=== PATIENT | female | born 1995 | race Caucasian/White ===

== ENCOUNTER 2019-06-29 12:14 | Emergency (ER) | payer BC ==
[2019-06-29] MEDS ORDERED: Sodium Chloride 0.9% 1000 ML 1,000 ML IV STA (12:36)
[2019-06-29] MEDS ORDERED: DUONEB 0.5-3 MG/3 ml Neb IH ONE ×2 (12:36→12:50)
--- NOTE | 2019-06-29 12:43 | ERPHSYRPT ---
- History of Present Illness Time Seen by Provider: 06/29/19 12:27 Source: patient Patient Subjective Stated Complaint: I have had body aches, fever, chills, shortness of breath and dry cough since last night. I am also having diarrhea. Triage Nursing Assessment: Pt presents to ER via POV (drove self) for increased shortness of breath with excertion since last night. Pt lungs clear and equal throughout. Does have dry frequent cough. Pt skin pink, warm, and dry. Pt states has had fever on and off since last night. Abd soft and nontender, states has had diarrhea but denies nausea and vomiting. States pain is 4 / 10 scale. It states pain is in chest/throat from excess coughing. Pt is alert and oriented x 3. Came back in to Room 3 in wheelchair. Physician History: 24 years old female presented in the ER with chief complaint of 3 to 4 days history of worsening minimal productive cough and last night started to have low -grade fever with a T-max of 100.2 along with generalized body aches. Patient is also having increasing shortness of breath since yesterday which is worse with activity and better with resting. Complaining of soreness in the chest all over with heaviness. Patient has taken Tylenol and fever is improved. Denies any sick contact. Patient denies any abdominal pain but has loose stools for the last couple of days. No nausea or vomiting reported. Patient is hyperventilating during the interview and reports earlier she was having some tingling sensation and some carpopedal spasm which is improved now. Timing/Duration: yesterday, gradual onset, worse Activities at Onset: activity Severity of Dyspnea-Max: moderate Severity of Dyspnea-Current: moderate Possible Cause: no prior episodes Modifying Factors: Improves With: activity, coughing Associated Symptoms: weakness, chills, dizziness, lightheadedness, muscle spasms hands, productive cough, tingling hands Allergies/Adverse Reactions: No Known Drug Allergies Allergy (Verified 06/29/19 12:28) STATES WAS ALLERGIC TO THREE DIFFERENT TYPES OF HEADACHE MEDICATIONS BUT DOESN' T KNOW WHAT THEY WERE, SAID IT WAS A LONG TIME AGO. Hx Tetanus, Diphtheria Vaccination/Date Given: Yes Hx Influenza Vaccination/Date Given: Yes Hx Pneumococcal Vaccination/Date Given: No Travel Risk - International Travel Have you traveled outside of the country in past 3 weeks: No Have you or anyone close to you been diagnosed with or: Yes Do your reside in a community with a known COVID-19 case?: Yes If Yes where:: [facility] - Coronavirus Screening Has patient experienced Coronavirus symptoms: Yes Symptoms experienced: fever(equal or > 100.4 F), respiratory symptoms ( i.e.Cought,shortness of breath) - Review of Systems Constitutional: Fever, Chills, Fatigue, Malaise Eyes: No Symptoms Ears, Nose, & Throat: No Symptoms Respiratory: Cough, Dyspnea Cardiac: Chest Pain Abdominal/Gastrointestinal: Diarrhea Genitourinary Symptoms: No Symptoms Musculoskeletal: Myalgias Skin: No Symptoms Neurological: Dizziness Psychological: Anxiety Endocrine: No Symptoms Hematologic/Lymphatic: No Symptoms Immunological/Allergic: No Symptoms - Past Medical History Pertinent Past Medical History: No - Past Surgical History Past Surgical History: No - Social History Smoking Status: Current every day smoker Drug Use: none - Female History Hx Last Menstrual Period: 06/24/19 Hx Now: No - Nursing Vital Signs Nursing Vital Signs: Initial Vital Signs Pulse Rate 110 H 06/29/19 12:14 Respiratory Rate 22 06/29/19 12:14 O2 Sat by Pulse Oximetry 100 06/29/19 12:14 Pain Scale Pain Intensity 4 - Physical Exam General Appearance: no apparent distress Eye Exam: PERRL/EOMI, eyes nml inspection Ears, Nose, Throat Exam: hearing grossly normal, normal ENT inspection, pharyngeal erythema Neck Exam: normal inspection, non-tender, supple, full range of motion Respiratory Exam: normal breath sounds, lungs clear, No chest tenderness Cardiovascular/Chest Exam: normal heart sounds, regular rate/rhythm, murmur Abdominal/Gastrointestinal Exam: soft, normal bowel sounds, No tenderness, No distention Extremity Exam: non-tender Neurologic Exam: alert, oriented x 3, cooperative, other (Anxious) Skin Exam: normal color, warm SpO2 Interpretation: normal SpO2: 100 O2 Delivery: Room Air - Course Nursing assessment & vital signs reviewed: Yes EKG Interpreted by Me: RATE ([id number]), NORMAL AXIS, NORMAL INTERVALS, NORMAL QRS Ordered Tests: Active Orders 24 hr Category Date Time Status IV Insertion STAT Care 06/29/19 12:36 Active CHEST 1 VIEW (PORTABLE) Stat Exams 06/29/19 12:36 Completed CBC W DIFF Stat Lab 06/29/19 12:50 Completed CMP Stat Lab 06/29/19 12:50 Completed D-DIMER QUANTITATIVE Stat Lab 06/29/19 14:21 Completed TROPONIN Q3H Lab 06/29/19 12:50 Completed TROPONIN Q3H Lab 06/30/19 00:45 Ordered Respiratory Therapy Assessment ONCE RT 06/29/19 13:43 Completed Medication Summary Discontinued Medications Generic Name Dose Route Start Last Admin Trade Name Freq PRN Reason Stop Dose Admin Albuterol/Ipratropium 3 ml 06/29/19 12:36 06/29/19 12:55 Duoneb 0.5-3 Mg/3 Ml Neb IH 06/29/19 12:37 3 ml STAT ONE Administration Albuterol/Ipratropium Confirm 06/29/19 12:50 Duoneb 0.5-3 Mg/3 Ml Neb Administered 06/29/19 12:51 Dose 3 ml IH .STK-MED ONE Sodium Chloride 1,000 mls @ 999 mls/hr 06/29/19 12:36 06/29/19 15:04 Sodium Chloride 0.9% 1000 Ml IV 06/29/19 13:36 Infused .Q1H1M STA Infusion Sodium Chloride Confirm 06/29/19 12:56 Sodium Chloride 0.9% 1000 Ml Administered 06/29/19 12:57 Dose 1,000 mls @ ud .ROUTE .STK-MED ONE Lab/Rad Data: Laboratory Result Diagrams 06/29/19 12:50 06/29/19 12:50 Laboratory Results 06/29/19 06/29/19 06/29/19 Range/Units 14:21 13:00 12:50 WBC (4.0-10.5) K/mm3 RBC (4.1-5.4) M/mm3 Hgb (12.0-16.0) gm/dl Hct (35-47) % MCV (78-100) fl MCH (26-32) pg MCHC (32-36) g/dl RDW (11.5-14.0) % Plt Count (150-450) K/mm3 MPV (7.5-11.0) fl Gran % (36.0-66.0) % Eos # (Auto) (0-0.5) Absolute Lymphs (auto) (1.0-4.6) Absolute Monos (auto) (0.0-1.3) Lymphocytes % (24.0-44.0) % Monocytes % (0.0-12.0) % Eosinophils % (0.00-5.0) % Basophils % (0.0-0.4) % Absolute Granulocytes (1.4-6.9) Basophils # (0-0.4) D-Dimer < 215 L (215-500) ng/mL Sodium (137-145) mmol/L Potassium (3.5-5.1) mmol/L Chloride (98-107) mmol/L Carbon Dioxide (22-30) mmol/L Anion Gap (5-15) MEQ/L BUN (7-17) mg/dL Creatinine (0.52-1.04) mg/dL Estimated GFR ML/MIN Glucose (74-106) mg/dL Calcium (8.4-10.2) mg/dL Total Bilirubin (0.2-1.3) mg/dL AST (14-36) U/L ALT (0-35) U/L Alkaline Phosphatase (38-126) U/L Troponin I < 0.012 (0.000-0.034) ng/mL Serum Total Protein (6.3-8.2) g/dL Albumin (3.5-5.0) g/dL Influenza Type A Ag NEGATIVE (NEGATIVE) Influenza Type B Ag NEGATIVE (NEGATIVE) RSV (PCR) NEGATIVE (Negative) 06/29/19 06/29/19 Range/Units 12:50 12:50 WBC 6.9 (4.0-10.5) K/mm3 RBC 5.49 H (4.1-5.4) M/mm3 Hgb 14.6 (12.0-16.0) gm/dl Hct 44.1 (35-47) % MCV 80.3 (78-100) fl MCH 26.6 (26-32) pg MCHC 33.1 (32-36) g/dl RDW 13.1 (11.5-14.0) % Plt Count 296 (150-450) K/mm3 MPV 8.9 (7.5-11.0) fl Gran % 69.0 H (36.0-66.0) % Eos # (Auto) 0.01 (0-0.5) Absolute Lymphs (auto) 1.73 (1.0-4.6) Absolute Monos (auto) 0.38 (0.0-1.3) Lymphocytes % 25.1 (24.0-44.0) % Monocytes % 5.5 (0.0-12.0) % Eosinophils % 0.1 (0.00-5.0) % Basophils % 0.3 (0.0-0.4) % Absolute Granulocytes 4.76 (1.4-6.9) Basophils # 0.02 (0-0.4) D-Dimer (215-500) ng/mL Sodium 142 (137-145) mmol/L Potassium 3.3 L (3.5-5.1) mmol/L Chloride 105 (98-107) mmol/L Carbon Dioxide 23 (22-30) mmol/L Anion Gap 17.1 H (5-15) MEQ/L BUN 11 (7-17) mg/dL Creatinine 0.57 (0.52-1.04) mg/dL Estimated GFR > 60.0 ML/MIN Glucose 99 (74-106) mg/dL Calcium 9.5 (8.4-10.2) mg/dL Total Bilirubin 1.00 (0.2-1.3) mg/dL AST 24 (14-36) U/L ALT 19 (0-35) U/L Alkaline Phosphatase 75 (38-126) U/L Troponin I (0.000-0.034) ng/mL Serum Total Protein 8.0 (6.3-8.2) g/dL Albumin 4.7 (3.5-5.0) g/dL Influenza Type A Ag (NEGATIVE) Influenza Type B Ag (NEGATIVE) RSV (PCR) (Negative) - Progress Progress: improved, re-examined Air Movement: good Progress Note: 06/29/19 15:42 Patient is improved with fluid and breathing treatment. Broad work-up was done including d-dimer which are negative. Part of her symptoms are secondary to her anxiety as well when she starts hyperventilating. Patient is counseled thoroughly. Patient is having some flulike/viral syndrome symptoms, recommended supportive care. COVID testing would be done outpatient. Recommended social distancing until the results come back. Discussed signs symptoms of worsening needing return to ER which he seems understanding. Stable for discharge. Blood Culture(s) Obtained: No Antibiotics given: No Counseled pt/family regarding: lab results, diagnosis, need for follow-up, rad results, smoking cessation - Departure Departure Disposition: Home Clinical Impression: Viral syndrome Condition: Stable Critical Care Time: No Referrals: DOCTOR,NO FAMILY [Primary Care Provider] - RIOS FITCH MD [ACTIVE STAFF] - Follow Up with PCP/3 days Instructions: Viral Syndrome (DC) Additional Instructions: Plenty of fluids. Take Tylenol as needed. Follow-up with primary care for reevaluation. Follow social distance practices. Return to ER for any worsening. Prescriptions: Albuterol 8 gm Mdi Hfa [Ventolin Hfa MDI] 8 gm IH Q4H #1 [email or web address]
[2019-06-29] MEDS ORDERED: Sodium Chloride 0.9% 1000 ML 1,000 ML ONE (12:56)
[2019-06-29 13:13] LABS: Absolute Neutrophil Ct (ANC) 4.76 (1.4-6.9); BASOPHIL % 0.3 % (0.0-0.4); Basophil (Absolute #) 0.02 (0-0.4); Eosinophil % 0.1 % (0.00-5.0); Eosinophil (Absolute #) 0.01 (0-0.5); Hematocrit 44.1 % (35-47); Hemoglobin 14.6 gm/dl (12.0-16.0); Lymphocyte (Absolute #) 1.73 (1.0-4.6); Lymphocytes % 25.1 % (24.0-44.0); Mean Cell Volume 80.3 fl (78-100); Mean Corpuscular Hemoglobin 26.6 pg (26-32); Mean Corpuscular Hgb Concent. 33.1 g/dl (32-36); Mean Platelet Volume 8.9 fl (7.5-11.0); Monocyte (Absolute #) 0.38 (0.0-1.3); Monocytes % 5.5 % (0.0-12.0); Platelet Count 296 K/mm3 (150-450); Red Blood Count 5.49 M/mm3 (4.1-5.4); Red Cell Distribution Width 13.1 % (11.5-14.0); White Blood Count 6.9 K/mm3 (4.0-10.5)
--- NOTE | 2019-06-29 13:16 | XRAY ---
Indication: Cough and congestion. Comparison: None Portable chest demonstrates normal heart, lungs, and bony thorax.
[2019-06-29 13:26] LABS: ALBUMIN 4.7 g/dL (3.5-5.0); ALKALINE PHOSPHATASE 75 U/L (38-126); ANION GAP 17.1 MEQ/L (5-15); BLOOD UREA NITROGEN 11 mg/dL (7-17); CHLORIDE 105 mmol/L (98-107); Calcium 9.5 mg/dL (8.4-10.2); Carbon Dioxide 23 mmol/L (22-30); Creatinine 1 0.57 mg/dL (0.52-1.04); Glucose 99 mg/dL (74-106); Potassium 3.3 mmol/L (3.5-5.1); SGOT/AST 24 U/L (14-36); SGPT/ALT 19 U/L (0-35); SODIUM 142 mmol/L (137-145)
[2019-06-29 13:44] LABS: INFLUENZA A NEGATIVE (NEGATIVE); INFLUENZA B NEGATIVE (NEGATIVE); RESPIRATORY SYNCTIAL VIRUS NEGATIVE (Negative)
[2019-06-29 16:16] VITALS: BP 108/72; PULSE 75; O2SAT 98
== END 2019-06-29 16:24 | disposition home or self-care (01) ==
LOC: ED 12:14
DX: B34.9 Viral infection, unspecified (principal); R42 Dizziness and giddiness; F41.9 Anxiety disorder, unspecified; R50.9 Fever, unspecified; Z72.0 Tobacco use
CPT/HCPCS: 36415; 71045; 80053; 84484; 85025; 85379; 87631; 94640; 96360; 99284; U0003; A9270-GY

== ENCOUNTER 2020-05-23 20:59 | Emergency (ER) | payer BC ==
[2020-05-23] MEDS ORDERED: Rhogam Plus 300 MCG IM ONE (21:35)
[2020-05-23] MEDS ORDERED: Sodium Chloride 0.9% 1000 ML 1,000 ML IV STA (22:00)
[2020-05-23] MEDS ORDERED: Zofran 4 MG/2 ML VIAL IV ONE (22:00)
[2020-05-23 22:19] LABS: Appearance SLIGHTLY CLOUDY (CLEAR); Bacteria RARE /HPF (NEGATIVE); Bilirubin NEGATIVE (NEGATIVE); Blood LARGE Ery/ul (0-5); Epithelial Cells RARE /HPF (FEW); Glucose NEGATIVE (NEGATIVE); Ketones TRACE (NEGATIVE); Leukocyte Esterase NEGATIVE (NEGATIVE); Mucus SLIGHT /HPF (NEGATIVE); Nitrite NEGATIVE (NEGATIVE); Protein,Urine Dip 30 (Negative); Specific Gravity 1.017 (1.005-1.025); Urobilinogen NEGATIVE mg/dL (0-1); WBC 0-2 /HPF (0-5)
[2020-05-23 22:20] LABS: RBC >101 /HPF (0-2)
[2020-05-23 22:35] LABS: Absolute Neutrophil Ct (ANC) 6.84 (1.4-6.9); BASOPHIL % 0.1 % (0.0-0.4); Basophil (Absolute #) 0.01 (0-0.4); Eosinophil % 0.6 % (0.00-5.0); Eosinophil (Absolute #) 0.06 (0-0.5); Hematocrit 45.2 % (35-47); Hemoglobin 14.6 gm/dl (12.0-16.0); Lymphocyte (Absolute #) 1.76 (1.0-4.6); Mean Cell Volume 82.6 fl (78-100); Mean Corpuscular Hemoglobin 26.7 pg (26-32); Mean Corpuscular Hgb Concent. 32.3 g/dl (32-36); Mean Platelet Volume 8.7 fl (7.5-11.0); Monocyte (Absolute #) 0.57 (0.0-1.3); Monocytes % 6.2 % (0.0-12.0); Neutrophil % 74.1 % (36.0-66.0); Platelet Count 276 K/mm3 (150-450); Red Blood Count 5.47 M/mm3 (4.1-5.4); Red Cell Distribution Width 12.6 % (11.5-14.0); White Blood Count 9.2 K/mm3 (4.0-10.5)
[2020-05-23 22:50] LABS: ALBUMIN 4.6 g/dL (3.5-5.0); ALKALINE PHOSPHATASE 55 U/L (38-126); BLOOD UREA NITROGEN 9 mg/dL (7-17); CHLORIDE 102 mmol/L (98-107); Calcium 9.5 mg/dL (8.4-10.2); Carbon Dioxide 25 mmol/L (22-30); Creatinine 1 0.55 mg/dL (0.52-1.04); EST GLOMERULAR FILTRATION RATE > 60.0 ML/MIN; Glucose 97 mg/dL (74-106); LIPASE 32 U/L (23-300); Potassium 3.7 mmol/L (3.5-5.1); SGOT/AST 27 U/L (14-36); SGPT/ALT 27 U/L (0-35); SODIUM 138 mmol/L (137-145); Total Protein 7.5 g/dL (6.3-8.2)
--- NOTE | 2020-05-23 22:50 | ERPHSYRPT ---
- History of Present Illness Time Seen by Provider: 05/23/20 21:03 Source: patient Exam Limitations: no limitations Patient Subjective Stated Complaint: Patient states " I was having some mild cramping and I was up doing dishes and I felt a gush and I went to bathroom and I had started bleeding and I had blood it felt like everywhere and I stayed on the toilet and actively bled for about 15 minutes". Triage Nursing Assessment: Patient arrived to ED and ambulated back to room without difficulty. Patient A/O times 4. Patient able to follow directions without difficulty. Lungs clear bilateral A/P throughout. Patient denies any chest pain. Patient with no compliants of SOB. Physician History: Patient is here with potential miscarriage. Patient had vaginal bleeding tonight. States that she believes that she is 6 to 8 weeks . 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 Has not been evaluated yet. This is patient's first . May be some mild abdominal cramping at this point time. States the bleeding has stopped. 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 Hx Tetanus, Diphtheria Vaccination/Date Given: Yes Hx Influenza Vaccination/Date Given: No Hx Pneumococcal Vaccination/Date Given: No Immunizations Up to Date: Yes Travel Risk - International Travel Have you traveled outside of the country in past 3 weeks: No - Coronavirus Screening Are you exhibiting any of the following symptoms?: No Close contact with a COVID-19 positive Pt in past 14-21 Days: No - Vaccine Status Have you recieved a Covid-19 vaccination: No - Review of Systems Constitutional: No Fever, No Chills Eyes: No Symptoms Ears, Nose, & Throat: No Symptoms Respiratory: No Cough, No Dyspnea Cardiac: No Chest Pain, No Edema, No Syncope Abdominal/Gastrointestinal: Other (Abdominal cramping with vaginal bleeding.), No Abdominal Pain, No Nausea, No Vomiting, No Diarrhea Genitourinary Symptoms: Vaginal Bleeding, No Dysuria Musculoskeletal: No Back Pain, No Neck Pain Skin: No Rash Neurological: No Dizziness, No Focal Weakness, No Sensory Changes Psychological: No Symptoms Endocrine: No Symptoms All Other Systems: Reviewed and Negative - Past Medical History Pertinent Past Medical History: No Neurological History: No Pertinent History ENT History: No Pertinent History Cardiac History: No Pertinent History Respiratory History: No Pertinent History Endocrine Medical History: No Pertinent History Musculoskeletal History: No Pertinent History GI Medical History: No Pertinent History History: No Pertinent History Psycho-Social History: No Pertinent History Female Reproductive Disorders: No Pertinent History - Past Surgical History Past Surgical History: No Neuro Surgical History: No Pertinent History Cardiac: No Pertinent History Respiratory: No Pertinent History Gastrointestinal: No Pertinent History Genitourinary: No Pertinent History Musculoskeletal: No Pertinent History Female Surgical History: No Pertinent History - Social History Smoking Status: Current every day smoker How long have you smoked: 4 years Exposure to second hand smoke: Yes Drug Use: none Patient Lives Alone: No - Female History Hx Last Menstrual Period: 03/25/20 Hx Now: Yes - Nursing Vital Signs Nursing Vital Signs: Initial Vital Signs Temperature 98.0 F 05/23/20 22:10 Pulse Rate 99 H 05/23/20 22:10 Respiratory Rate 18 05/23/20 22:10 Blood Pressure 124/80 05/23/20 22:10 O2 Sat by Pulse Oximetry 99 05/23/20 22:10 Pain Scale Pain Intensity 3 - Physical Exam General Appearance: no apparent distress, alert Eye Exam: PERRL/EOMI, eyes nml inspection Ears, Nose, Throat Exam: normal ENT inspection, TMs normal, pharynx normal, moist mucous membranes Neck Exam: normal inspection, non-tender, supple, full range of motion Respiratory Exam: normal breath sounds, lungs clear, No respiratory distress Cardiovascular Exam: regular rate/rhythm, normal heart sounds, normal peripheral pulses Gastrointestinal/Abdomen Exam: soft, normal bowel sounds, No tenderness, No mass Back Exam: normal inspection, normal range of motion, No CVA tenderness, No vertebral tenderness Extremity Exam: normal inspection, normal range of motion, pelvis stable Neurologic Exam: alert, oriented x 3, cooperative, normal mood/affect, nml cer ebellar function, nml station & gait, sensation nml, No motor deficits Skin Exam: normal color, warm, dry, No rash Lymphatic Exam: No adenopathy SpO2 Interpretation: normal SpO2: 99 Comments: 05/23/20 23:26 No abdominal tenderness. No rebound or guarding. - Course Nursing assessment & vital signs reviewed: Yes EKG Interpreted by Me: Sinus Rhythm Ordered Tests: Active Orders 24 hr Category Date Time Status EKG-ER Only STAT Care 05/23/20 22:00 Completed IV Insertion STAT Care 05/23/20 22:00 Completed OB <14 WKS 1ST GESTATION [US] Stat Exams 05/23/20 22:58 Taken CBC W DIFF Stat Lab 05/23/20 22:32 Completed CMP Stat Lab 05/23/20 22:32 Completed CULTURE,URINE Stat Lab 05/23/20 22:10 Received HCG, Quantitative (Inhouse) Stat Lab 05/23/20 22:32 Received HCG,QUALITATIVE URINE Stat Lab 05/23/20 22:10 Completed LIPASE Stat Lab 05/23/20 22:32 Completed UA W/RFX UR CULTURE Stat Lab 05/23/20 22:10 Completed Medication Summary Discontinued Medications Generic Name Dose Route Start Last Admin Trade Name Freq PRN Reason Stop Dose Admin Sodium Chloride 1,000 mls @ 999 mls/hr 05/23/20 22:00 Sodium Chloride 0.9% 1000 Ml IV 05/23/20 23:00 .Q1H1M STA Ondansetron HCl 4 mg 05/23/20 22:00 Zofran 4 Mg/2 Ml Vial IV 05/23/20 22:01 STAT ONE Rho Immune Globulin 300 mcg 05/23/20 21:35 Rhogam Plus 300 Mcg IM 05/23/20 21:36 .ONCE ONE Lab/Rad Data: Laboratory Result Diagrams 05/23/20 22:32 05/23/20 22:32 Laboratory Results 05/23/20 05/23/20 05/23/20 Range/Units 22:32 22:32 22:10 WBC 9.2 (4.0-10.5) K/mm3 RBC 5.47 H (4.1-5.4) M/mm3 Hgb 14.6 (12.0-16.0) gm/dl Hct 45.2 (35-47) % MCV 82.6 (78-100) fl MCH 26.7 (26-32) pg MCHC 32.3 (32-36) g/dl RDW 12.6 (11.5-14.0) % Plt Count 276 (150-450) K/mm3 MPV 8.7 (7.5-11.0) fl Gran % 74.1 H (36.0-66.0) % Eos # (Auto) 0.06 (0-0.5) Absolute Lymphs (auto) 1.76 (1.0-4.6) Absolute Monos (auto) 0.57 (0.0-1.3) Lymphocytes % 19.0 L (24.0-44.0) % Monocytes % 6.2 (0.0-12.0) % Eosinophils % 0.6 (0.00-5.0) % Basophils % 0.1 (0.0-0.4) % Absolute Granulocytes 6.84 (1.4-6.9) Basophils # 0.01 (0-0.4) Sodium 138 (137-145) mmol/L Potassium 3.7 (3.5-5.1) mmol/L Chloride 102 (98-107) mmol/L Carbon Dioxide 25 (22-30) mmol/L Anion Gap 15.0 (5-15) MEQ/L BUN 9 (7-17) mg/dL Creatinine 0.55 (0.52-1.04) mg/dL Estimated GFR > 60.0 ML/MIN Glucose 97 (74-106) mg/dL Calcium 9.5 (8.4-10.2) mg/dL Total Bilirubin 0.90 (0.2-1.3) mg/dL AST 27 (14-36) U/L ALT 27 (0-35) U/L Alkaline Phosphatase 55 (38-126) U/L Serum Total Protein 7.5 (6.3-8.2) g/dL Albumin 4.6 (3.5-5.0) g/dL Lipase 32 (23-300) U/L Urine Color (YELLOW) Urine Appearance (CLEAR) Urine pH (5-6) Ur Specific [place] (1.005-1.025) Urine Protein (Negative) Urine Ketones (NEGATIVE) Urine Blood (0-5) Bennie/ul Urine Nitrite (NEGATIVE) Urine Bilirubin (NEGATIVE) Urine Urobilinogen (0-1) mg/dL Ur Leukocyte Esterase (NEGATIVE) Urine WBC (Auto) (0-5) /HPF Urine RBC (Auto) (0-2) /HPF U Epithel Cells (Auto) (FEW) /HPF Urine Bacteria (Auto) (NEGATIVE) /HPF Urine Mucus (Auto) (NEGATIVE) /HPF Urine Culture Reflexed (NO) Urine Glucose (NEGATIVE) mg/dL Urine HCG, Qual POSITIVE (Negative) 05/23/20 Range/Units 22:10 WBC (4.0-10.5) K/mm3 RBC (4.1-5.4) M/mm3 Hgb (12.0-16.0) gm/dl Hct (35-47) % MCV (78-100) fl MCH (26-32) pg MCHC (32-36) g/dl RDW (11.5-14.0) % Plt Count (150-450) K/mm3 MPV (7.5-11.0) fl Gran % (36.0-66.0) % Eos # (Auto) (0-0.5) Absolute Lymphs (auto) (1.0-4.6) Absolute Monos (auto) (0.0-1.3) Lymphocytes % (24.0-44.0) % Monocytes % (0.0-12.0) % Eosinophils % (0.00-5.0) % Basophils % (0.0-0.4) % Absolute Granulocytes (1.4-6.9) Basophils # (0-0.4) Sodium (137-145) mmol/L Potassium (3.5-5.1) mmol/L Chloride (98-107) mmol/L Carbon Dioxide (22-30) mmol/L Anion Gap (5-15) MEQ/L BUN (7-17) mg/dL Creatinine (0.52-1.04) mg/dL Estimated GFR ML/MIN Glucose (74-106) mg/dL Calcium (8.4-10.2) mg/dL Total Bilirubin (0.2-1.3) mg/dL AST (14-36) U/L ALT (0-35) U/L Alkaline Phosphatase (38-126) U/L Serum Total Protein (6.3-8.2) g/dL Albumin (3.5-5.0) g/dL Lipase (23-300) U/L Urine Color YELLOW (YELLOW) Urine Appearance SLIGHTLY CLOUDY (CLEAR) Urine pH 5.0 (5-6) Ur Specific [place] 1.017 (1.005-1.025) Urine Protein 30 (Negative) Urine Ketones TRACE (NEGATIVE) Urine Blood LARGE (0-5) Bennie/ul Urine Nitrite NEGATIVE (NEGATIVE) Urine Bilirubin NEGATIVE (NEGATIVE) Urine Urobilinogen NEGATIVE (0-1) mg/dL Ur Leukocyte Esterase NEGATIVE (NEGATIVE) Urine WBC (Auto) 0-2 (0-5) /HPF Urine RBC (Auto) >101 (0-2) /HPF U Epithel Cells (Auto) RARE (FEW) /HPF Urine Bacteria (Auto) RARE (NEGATIVE) /HPF Urine Mucus (Auto) SLIGHT (NEGATIVE) /HPF Urine Culture Reflexed YES (NO) Urine Glucose NEGATIVE (NEGATIVE) mg/dL Urine HCG, Qual (Negative) - Progress Progress: improved Progress Note: 05/23/20 23:26 Threatened miscarriage. Unremarkable labs. Ultrasound demonstrates a IUP 6 weeks. Some blood in the vaginal vault. Cervix closed. Patient does have a heart rate at this point time. This is per the ski technician's read. At this point time patient still may miscarry. I did describe this to the patient. She states her understanding. Patient already has follow-up with OB on Tuesday. She will follow-up as described. No RhoGam at this point in time given mild bleeding first time. We will leave the decision up to OB on Tuesday how they want to proceed. Plan of care was discussed with patient and all questions answered. The patient is agreeable to be discharged home and both verbal and printed discharge instructions were provided.The patient agreed to seek outpatient follow up as discussed. The patient was given strict instructions to return to the emergency department for worsening symptoms or any other emergent concerns. The patient verbalized understanding. Counseled pt/family regarding: lab results, diagnosis, need for follow-up, rad results - Departure Departure Disposition: Home Clinical Impression: Bleeding in early Condition: Stable Critical Care Time: No Referrals: DMITRY COSTA DO [ACTIVE STAFF] - Instructions: Threatened Miscarriage (DC) Additional Instructions: Call in 1 day for close follow up
[2020-05-23 23:17] VITALS: BP 110/66; PULSE 81
[2020-05-23 23:28] VITALS: O2SAT 99
--- NOTE | 2020-05-24 07:40 | XRAY ---
Indication: Bleeding. 2-dimensional transvaginal early OB ultrasound performed. Comparison: None There is a single intrauterine gestational sac with presence of a single pole and yolk sac. Mean crown-rump length measures 0.91 cm corresponding to 6 weeks 6 days. heart rate 133 BPM. No abnormal subchorionic fluid. Left and right ovaries are unremarkable. No suspicious adnexal mass or free fluid. Impression: Single viable intrauterine measuring 6 weeks 6 days. Expected date confinement is January 10, 2021. No acute abnormalities. Comment: Preliminary report was given.
== END 2020-05-23 23:15 | disposition home or self-care (01) ==
LOC: ED 20:59
DX: O20.9 Hemorrhage in early pregnancy, unspecified (principal); Z3A.08 8 weeks gestation of pregnancy
CPT/HCPCS: 36415; 76801; 80053; 81001; 83690; 84702; 84703; 85025; 87086; 93005; 99284

== ENCOUNTER 2020-09-17 11:46 | Observation (INO) | payer BC, MEDICAID ==
[2020-09-17 12:15] LABS: Appearance SLIGHTLY CLOUDY (CLEAR); Bacteria FEW /HPF (NEGATIVE); Bilirubin NEGATIVE (NEGATIVE); Blood NEGATIVE Ery/ul (0-5); Epithelial Cells RARE /HPF (FEW); Glucose NEGATIVE (NEGATIVE); Ketones NEGATIVE (NEGATIVE); Leukocyte Esterase TRACE (NEGATIVE); Mucus SLIGHT /HPF (NEGATIVE); Nitrite NEGATIVE (NEGATIVE); Protein,Urine Dip NEGATIVE (Negative); RBC 0-2 /HPF (0-2); Specific Gravity 1.017 (1.005-1.025); Urobilinogen NEGATIVE mg/dL (0-1)
[2020-09-17 12:33] LABS: Amphetamine,Urine NEGATIVE (NEGATIVE); Barbiturate,Urine NEGATIVE (NEGATIVE); Benzodiazepine,Urine NEGATIVE (NEGATIVE); Cocaine,Urine NEGATIVE (NEGATIVE); Methadone,Urine NEGATIVE (NEGATIVE); Opiate,Urine NEGATIVE (NEGATIVE); PCP,Urine NEGATIVE (NEGATIVE); THC,Urine POSITIVE (NEGATIVE)
[2020-09-17 12:43] VITALS: BP 117/75; PULSE 93; O2SAT 98
--- NOTE | 2020-09-17 14:42 | XRAY ---
Indication: Abdomen pain. Evaluate cervical length. Limited transvaginal ultrasound demonstrates a closed cervix with cervical length 3.5 cm.
== END 2020-09-17 13:33 | disposition home or self-care (01) ==
LOC: OB 11:46
PROVIDERS: ADMIT Obstetrics & Gynecology; ATTEND Obstetrics & Gynecology
DX: O26.892 Other specified pregnancy related conditions, second trimester (principal); Z3A.23 23 weeks gestation of pregnancy; R10.9 Unspecified abdominal pain
CPT/HCPCS: 76815; 80307; 81001; G0378

== ENCOUNTER 2020-10-20 10:35 | Observation (INO) | payer BC, MEDICAID ==
--- NOTE | 2020-10-20 12:31 | XRAY ---
Indication: Decreased movement. Ultrasound biophysical profile study performed. Comparison: None Single intrauterine with heart rate 153 BPM. Four-quadrant MAHOGANY is 18.6 cm, largest pocket 6.3 cm. 2 points given for movements, tone, and qualitative amniotic fluid volume. 0 points for breathing. Impression: Total biophysical profile score is 6 out of 8.
[2020-10-20 12:33] VITALS: PULSE 67
[2020-10-20 13:33] VITALS: BP 104/75
== END 2020-10-20 13:05 | disposition home or self-care (01) ==
LOC: WHC 10:35 → OB 11:08
PROVIDERS: ADMIT Obstetrics & Gynecology; ATTEND Obstetrics & Gynecology
DX: O36.8130 Decreased fetal movements, third trimester, not applicable or unspecified (principal); Z3A.28 28 weeks gestation of pregnancy
CPT/HCPCS: 59025; 59426; 76818; G0378

== ENCOUNTER 2020-12-16 09:16 | Observation (INO) | payer BC, MEDICAID ==
[2020-12-16] MEDS ORDERED: Sodium Chloride 0.9% 1000 ML 1,000 ML IV PRN (14:00)
[2020-12-16] MEDS ORDERED: TYLENOL 325 MG PO PRN (14:00)
[2020-12-16] MEDS ORDERED: Pepcid 20 MG VIAL IV PRN (14:00)
[2020-12-16] MEDS ORDERED: BENADRYL 50 MG/ML IV PRN (14:00)
[2020-12-16] MEDS ORDERED: Epipen 0.3 MG SQ PRN (14:00)
[2020-12-16] MEDS ORDERED: REGEN-COV 600-600 MG/10ML(EUA) 10 ML in Sodium Chloride 0.9% 100 ML BAG 100 ML IV ONE (14:00)
[2020-12-16] MEDS ORDERED: VENTOLIN COMMON CANISTER IH PRN (14:00)
[2020-12-16] MEDS ORDERED: solu-CORTEF 100MG IV PRN (14:00)
[2020-12-16 17:06] VITALS: BP 108/66; PULSE 80; O2SAT 97
== END 2020-12-16 15:15 | disposition home or self-care (01) ==
LOC: MED SURG 10:20
PROVIDERS: ADMIT Obstetrics & Gynecology; ATTEND Obstetrics & Gynecology
DX: O98.513 Other viral diseases complicating pregnancy, third trimester (principal); U07.1 COVID-19; Z3A.36 36 weeks gestation of pregnancy
CPT/HCPCS: 59025; 96365; 96413; G0378; Q0243

== ENCOUNTER 2020-12-21 10:09 | Observation (INO) | payer BC, MEDICAID ==
[2020-12-21 10:37] VITALS: BP 110/72; PULSE 106; O2SAT 97
[2020-12-21 11:09] LABS: Amphetamine,Urine NEGATIVE (NEGATIVE); Barbiturate,Urine NEGATIVE (NEGATIVE); Benzodiazepine,Urine NEGATIVE (NEGATIVE); Cocaine,Urine NEGATIVE (NEGATIVE); Methadone,Urine NEGATIVE (NEGATIVE); Opiate,Urine NEGATIVE (NEGATIVE); PCP,Urine NEGATIVE (NEGATIVE); THC,Urine NEGATIVE (NEGATIVE)
== END 2020-12-21 11:00 | disposition home or self-care (01) ==
LOC: OB 10:09 → UNDOADMOB 10:09 → UNDODISOB 11:00
PROVIDERS: ADMIT Obstetrics & Gynecology; ATTEND Obstetrics & Gynecology
DX: Z34.03 Encounter for supervision of normal first pregnancy, third trimester (principal); Z3A.36 36 weeks gestation of pregnancy
CPT/HCPCS: 59025; 80307; G0378

== ENCOUNTER 2020-12-26 10:35 | Observation (INO) | payer BC, MEDICAID ==
[2020-12-26 11:08] VITALS: BP 109/68; PULSE 95
== END 2020-12-26 11:35 | disposition home or self-care (01) ==
LOC: OB 10:35
PROVIDERS: ADMIT Obstetrics & Gynecology; ATTEND Obstetrics & Gynecology
DX: Z34.03 Encounter for supervision of normal first pregnancy, third trimester (principal); Z3A.38 38 weeks gestation of pregnancy
CPT/HCPCS: 59025; G0378

== ENCOUNTER 2020-12-30 14:05 | Observation (INO) | payer BC, MEDICAID ==
--- NOTE | 2020-12-30 15:28 | XRAY ---
Indication: growth. Two-dimensional OB ultrasound performed. Comparison: November 17, 2020. Again there is a single viable intrauterine in cephalic presentation. heart rate 169 BPM. Again posterior placenta without abruption/previa. BPD measures 9.43 cm corresponding to 38 weeks 3 days. HC measures 33.58 cm corresponding to 38 weeks 3 days. AC measures 33.60 cm corresponding to 37 weeks 4 days. FL measures 7.25 cm corresponding to 37 weeks 1 day. Estimated weight 7 lbs. 3 oz. +/- 1 pound 1 ounce. Approximately 42 percentile. MAHOGANY is 8 cm. Impression: Again single viable intrauterine with mean gestational age 37 weeks 6 days. Normal progression of . No new/acute findings
== END 2020-12-30 15:40 | disposition home or self-care (01) ==
LOC: OB 14:05
PROVIDERS: ADMIT Obstetrics & Gynecology; ATTEND Obstetrics & Gynecology
DX: Z34.03 Encounter for supervision of normal first pregnancy, third trimester (principal); Z3A.38 38 weeks gestation of pregnancy; Z20.828 Contact with and (suspected) exposure to other viral communicable diseases
CPT/HCPCS: 59025; 76816; G0378

== ENCOUNTER 2021-01-02 11:06 | Observation (INO) | payer BC, MEDICAID | END 2021-01-02 12:05 | disposition home or self-care (01) | LOC: OB 11:06 | PROVIDERS: ADMIT Obstetrics & Gynecology; ATTEND Obstetrics & Gynecology | DX: Z34.03 Encounter for supervision of normal first pregnancy, third trimester (principal); Z3A.38 38 weeks gestation of pregnancy | CPT/HCPCS: 59025; G0378 ==

== ENCOUNTER 2021-01-04 11:46 | Inpatient (IN) | payer BC, MEDICAID ==
[2021-01-04 12:38] LABS: Amphetamine,Urine NEGATIVE (NEGATIVE); Barbiturate,Urine NEGATIVE (NEGATIVE); Benzodiazepine,Urine NEGATIVE (NEGATIVE); Cocaine,Urine NEGATIVE (NEGATIVE); Methadone,Urine NEGATIVE (NEGATIVE); Opiate,Urine NEGATIVE (NEGATIVE); PCP,Urine NEGATIVE (NEGATIVE); THC,Urine NEGATIVE (NEGATIVE)
[2021-01-04] MEDS ORDERED: XYLOCAINE 1% HCL 20 ML MDV IJ PRN (13:02)
[2021-01-04] MEDS ORDERED: Zofran 4 MG/2 ML VIAL IV PRN (13:02)
[2021-01-04] MEDS ORDERED: Lactated Ringers 1,000 ML IV SCH (13:30)
[2021-01-04] MEDS ORDERED: PITOCIN 30 UNITS/ LR 500 ML 30 UNITS/500 ML IV.SOLN. IV SCH ×2 (13:30→14:30)
[2021-01-04 13:59] LABS: Absolute Neutrophil Ct (ANC) 6.51 (1.4-6.9); BASOPHIL % 0.1 % (0.0-0.4); Basophil (Absolute #) 0.01 (0-0.4); Eosinophil % 0.5 % (0.00-5.0); Eosinophil (Absolute #) 0.04 (0-0.5); Hematocrit 38.8 % (35-47); Hemoglobin 12.5 gm/dl (12.0-16.0); Lymphocyte (Absolute #) 1.08 (1.0-4.6); Lymphocytes % 13.3 % (24.0-44.0); Mean Cell Volume 85.1 fl (78-100); Mean Corpuscular Hemoglobin 27.4 pg (26-32); Mean Corpuscular Hgb Concent. 32.2 g/dl (32-36); Mean Platelet Volume 9.2 fl (7.5-11.0); Monocyte (Absolute #) 0.47 (0.0-1.3); Monocytes % 5.8 % (0.0-12.0); Neutrophil % 80.3 % (36.0-66.0); Platelet Count 226 K/mm3 (150-450); Red Blood Count 4.56 M/mm3 (4.1-5.4); Red Cell Distribution Width 12.7 % (11.5-14.0); White Blood Count 8.1 K/mm3 (4.0-10.5)
[2021-01-04] MEDS ORDERED: OB EPIDURAL NAROPIN/SUFENTANIL IN NACL EPIDURAL PRN (17:53)
[2021-01-04] MEDS ORDERED: Anucort-HC SUPPOSITORY PR PRN (20:12)
[2021-01-04] MEDS ORDERED: LANSINOH 40 GM TOP PRN (20:12)
[2021-01-04] MEDS ORDERED: CORTISONE 1% CREAM TP PRN (20:12)
[2021-01-04] MEDS ORDERED: Dulcolax 10 MG SUPP PR PRN (20:12)
[2021-01-04] MEDS ORDERED: Dermoplast Spray TP PRN (20:12)
[2021-01-04] MEDS ORDERED: Mylicon 80MG PO PRN (20:12)
[2021-01-04] MEDS: MOTRIN 400 MG PO PRN (20:24)
[2021-01-04] MEDS: Colace 100 MG PO SCH (22:30)
[2021-01-05] MEDS ORDERED: TUCKS TP ONE (02:46)
[2021-01-05] MEDS: MOTRIN 400 MG PO PRN ×2 (02:54→18:22)
[2021-01-05] MEDS: TUCKS TP PRN (03:00)
[2021-01-05 05:51] LABS: Absolute Neutrophil Ct (ANC) 9.01 (1.4-6.9); BASOPHIL % 0.1 % (0.0-0.4); Basophil (Absolute #) 0.01 (0-0.4); Eosinophil % 0.1 % (0.00-5.0); Eosinophil (Absolute #) 0.01 (0-0.5); Hematocrit 35.7 % (35-47); Hemoglobin 11.4 gm/dl (12.0-16.0); Lymphocyte (Absolute #) 1.41 (1.0-4.6); Lymphocytes % 12.5 % (24.0-44.0); Mean Cell Volume 85.2 fl (78-100); Mean Corpuscular Hemoglobin 27.2 pg (26-32); Mean Corpuscular Hgb Concent. 31.9 g/dl (32-36); Mean Platelet Volume 9.3 fl (7.5-11.0); Monocyte (Absolute #) 0.82 (0.0-1.3); Monocytes % 7.3 % (0.0-12.0); Platelet Count 231 K/mm3 (150-450); Red Blood Count 4.19 M/mm3 (4.1-5.4); Red Cell Distribution Width 12.6 % (11.5-14.0); White Blood Count 11.3 K/mm3 (4.0-10.5)
[2021-01-05] MEDS: TYLENOL EXTRA STRENGTH 500 MG PO PRN ×2 (08:55→21:59)
[2021-01-05] MEDS: Colace 100 MG PO SCH (22:00)
[2021-01-06] MEDS: MOTRIN 400 MG PO PRN (05:20)
[2021-01-06 08:10] LABS: RPR Non Reactive (Non Reactive)
--- NOTE | 2021-01-06 08:21 | PCM.DS ---
Discharge Summary Date of Admission: 01/04/21 11:46 Admitting Physician: KENNY CARRASCO Consults: Consults on Case 01/04/21 21:00 Notify Physician ROUTINE Primary Care Provider: NO FAMILY DOCTOR Allergies Allergies No Known Drug Allergies Allergy (Verified 01/04/21 13:13) STATES WAS ALLERGIC TO THREE DIFFERENT TYPES OF HEADACHE MEDICATIONS BUT DOESN'T KNOW WHAT THEY WERE, SAID IT WAS A LONG TIME AGO. Hospital Summary - Hospital Course Hospital Course: Pt is 25 yo now who came in after SROM with clear fluid. Delivered vaginally, 7lb 14oz male. No vaginal laceration/repair. She had Covid 2.5 weeks ago and received antibody treatment. She has been . Bleeding is like menses. Denies dizziness. Tolerating po. - Vitals & Intake/Output Vital Signs: Vital Signs Temperature 98.5 F 01/06/21 02:46 Pulse Rate 71 01/06/21 02:46 Respiratory Rate 18 01/06/21 02:46 Blood Pressure 108/74 01/06/21 02:46 O2 Sat by Pulse Oximetry 98 01/04/21 13:37 Intake & Output: Intake & Output 01/03/21 01/04/21 01/05/21 01/06/21 11:59 11:59 11:59 11:59 Intake Total 400 800 Balance 400 800 Weight 91.231 kg - Lab Result Diagrams: 01/05/21 05:24 Discharge Exam General Appearance: no apparent distress Neurologic Exam: alert, oriented x 3, cooperative Eye Exam: eyes nml inspection Ears, Nose, Throat Exam: moist mucous membranes Neck Exam: normal inspection Respiratory Exam: normal breath sounds, lungs clear, No crackles/rales, No rhonchi, No wheezing Cardiovascular Exam: regular rate/rhythm, normal heart sounds, No murmur Gastrointestinal/Abdomen Exam: soft, normal bowel sounds, other (fundus firm inferior to umbilicus), No tenderness Extremity Exam: normal inspection, No pedal edema, No swelling Skin Exam: normal color, warm, dry, No rash Final Diagnosis/Problem List - Final Discharge Diagnosis/Problem (1) Spontaneous vaginal delivery Current Visit: Yes Status: Acute Assessment & Plan: Doing well. on Tylenol and Advil for pain. D/c to home today. F/u with Dr. Duron in 4-6 weeks. Code(s): O80 - ENCOUNTER FOR FULL-TERM UNCOMPLICATED DELIVERY (2) Anemia Current Visit: Yes Status: Acute Assessment & Plan: Hgb 11.4 yesterday. Home on 1 mo of FeSO4. Code(s): D64.9 - ANEMIA, UNSPECIFIED - Discharge Disposition: Home, Self-Care Condition: Good Prescriptions: New Ferrous Sulfate 325 mg PO DAILY #30 tablet Ibuprofen 800 mg PO TID PRN #35 tablet PRN Reason: Pain Continue Acetaminophen 500 mg [Tylenol Extra Strength 500 mg] 500 mg PO Q6H PRN PRN Reason: Pain Vits W-Ca,Fe,FA(<1Mg) [] 1 each PO DAILY Ondansetron ODT 4 MG [Zofran Odt 4 mg] 4 mg PO Q6H PRN PRN PRN Reason: Nausea Follow up with: DOCTOR,NO FAMILY [Primary Care Provider] -
[2021-01-06] MEDS ORDERED: FERREX 150 PO SCH (10:00)
[2021-01-06 10:08] LABS: HIV Screen 4th Generation wRfx Non Reactive (Non Reactive)
[2021-01-06 10:09] LABS: HBsAg Screen Negative (Negative)
[2021-01-06] MEDS: Colace 100 MG PO SCH (10:58)
[2021-01-06] MEDS: TYLENOL EXTRA STRENGTH 500 MG PO PRN (12:27)
[2021-01-06] MEDS ORDERED: Adacel Vial IM ONE (14:18)
[2021-01-06] MEDS: TUCKS TP PRN (14:54)
== END 2021-01-06 17:20 | disposition home or self-care (01) | DRG 807 ==
LOC: OB 11:46 → OBSVTOIN 11:46
PROVIDERS: ADMIT Family Medicine; ATTEND Obstetrics & Gynecology
PROC: 10E0XZZ Delivery of Products of Conception, External Approach (ICD-10-PCS; principal; 2021-01-04)
DX: O80 Encounter for full-term uncomplicated delivery (principal); Z37.0 Single live birth; Z3A.39 39 weeks gestation of pregnancy; D64.9 Anemia, unspecified
CPT/HCPCS: 36415; 80307; 84112; 85025; 86592; 87340; 87389; 90715; 96372; G0378; J2405; J2590; A9270-GY

== ENCOUNTER 2021-05-02 09:37 | Emergency (ER) | payer BC, MEDICAID ==
[2021-05-02] MEDS ORDERED: MORPHINE SULFATE 4 MG INJ IV ONE (09:52)
[2021-05-02] MEDS ORDERED: Sodium Chloride 0.9% 1000 ML 1,000 ML IV STA (09:52)
[2021-05-02] MEDS ORDERED: MORPHINE SULFATE 4 MG INJ ONE (09:56)
[2021-05-02] MEDS ORDERED: Sodium Chloride 0.9% 1000 ML 1,000 ML ONE (09:56)
[2021-05-02 10:04] LABS: Appearance SLIGHTLY CLOUDY (CLEAR); Bacteria RARE /HPF (NEGATIVE); Bilirubin NEGATIVE (NEGATIVE); Blood MODERATE Ery/ul (0-5); Epithelial Cells FEW /HPF (FEW); Glucose NEGATIVE (NEGATIVE); Hyaline Casts 0-2 /LPF (0-2); Ketones NEGATIVE (NEGATIVE); Leukocyte Esterase NEGATIVE (NEGATIVE); Mucus SLIGHT /HPF (NEGATIVE); Nitrite NEGATIVE (NEGATIVE); Protein,Urine Dip NEGATIVE (Negative); Specific Gravity 1.024 (1.005-1.025); Urobilinogen NEGATIVE mg/dL (0-1)
--- NOTE | 2021-05-02 10:04 | ERPHSYRPT ---
- History of Present Illness Time Seen by Provider: 05/02/21 10:02 Historian: patient Exam Limitations: no limitations Patient Subjective Stated Complaint: RLQ pain x 3-4 weeks Triage Nursing Assessment: pt to ED c/o RLQ pain x 3-4 weeks. states she gave 4 months ago and thought cramping was originally from that. cramping started intense 3-4 weeks ago and pt states she thought it was menstral cramping but pain has progressively worsened to now. rates 7/. LMP Apr 12. reports bloody diarrhea this am. Physician History: RLQ pain x 3-4 weeks pt to ED c/o RLQ pain x 3-4 weeks. states she gave 4 months ago and thought cramping was originally from that. cramping started intense 3-4 weeks ago and pt states she thought it was menstrual cramping but pain has progressively worsened to now. rates 7/. LMP Apr 12. reports bloody diarrhea this am. Timing/Duration: week(s) Activities at Onset: none Quality: cramping Abdominal Pain Onset Location: RLQ Pain Radiation: no radiation Severity of Pain-Max: mild Severity of Pain-Current: moderate Modifying Factors: Improves With: nothing Associated Symptoms: diarrhea Previous symptoms: no prior history Allergies/Adverse Reactions: No Known Drug Allergies Allergy (Verified 05/02/21 09:45) STATES WAS ALLERGIC TO THREE DIFFERENT TYPES OF HEADACHE MEDICATIONS BUT DOESN'T KNOW WHAT THEY WERE, SAID IT WAS A LONG TIME AGO. Hx Tetanus, Diphtheria Vaccination/Date Given: Yes Hx Influenza Vaccination/Date Given: Yes Hx Pneumococcal Vaccination/Date Given: No Immunizations Up to Date: Yes Travel Risk - International Travel Have you traveled outside of the country in past 3 weeks: No - Coronavirus Screening Are you exhibiting any of the following symptoms?: Yes Symptoms: Vomiting/Diarrhea Close contact with a COVID-19 positive Pt in past 14-21 Days: No - Vaccine Status Have you recieved a Covid-19 vaccination: No - Review of Systems Constitutional: No Fever, No Chills Eyes: No Symptoms Ears, Nose, & Throat: No Symptoms Respiratory: No Cough, No Dyspnea Cardiac: No Chest Pain, No Edema, No Syncope Abdominal/Gastrointestinal: Abdominal Pain, Hematochezia, No Nausea, No Vomiting, No Diarrhea Genitourinary Symptoms: No Dysuria Musculoskeletal: No Back Pain, No Neck Pain Skin: No Rash Neurological: No Dizziness, No Focal Weakness, No Sensory Changes Psychological: No Symptoms Endocrine: No Symptoms All Other Systems: Reviewed and Negative - Past Medical History Pertinent Past Medical History: No Neurological History: No Pertinent History ENT History: No Pertinent History Cardiac History: No Pertinent History Respiratory History: No Pertinent History Endocrine Medical History: No Pertinent History Musculoskeletal History: No Pertinent History GI Medical History: No Pertinent History History: No Pertinent History Psycho-Social History: No Pertinent History Female Reproductive Disorders: No Pertinent History - Past Surgical History Past Surgical History: No Neuro Surgical History: No Pertinent History Cardiac: No Pertinent History Respiratory: No Pertinent History Gastrointestinal: No Pertinent History Genitourinary: No Pertinent History Musculoskeletal: No Pertinent History Female Surgical History: No Pertinent History - Social History Smoking Status: Current every day smoker How long have you smoked: 2.5 yars Exposure to second hand smoke: Yes Drug Use: none Patient Lives Alone: No - Female History Hx Last Menstrual Period: Apr 12 Hx Now: No - Nursing Vital Signs Nursing Vital Signs: Initial Vital Signs Temperature 97.8 F 05/02/21 09:47 Pulse Rate 96 H 05/02/21 09:47 Respiratory Rate 20 05/02/21 09:47 Blood Pressure 115/85 05/02/21 09:47 O2 Sat by Pulse Oximetry 100 05/02/21 09:47 Pain Scale Pain Intensity 2 - Physical Exam General Appearance: no apparent distress, alert Eye Exam: PERRL/EOMI, eyes nml inspection Ears, Nose, Throat Exam: normal ENT inspection, pharynx normal, moist mucous membranes Neck Exam: normal inspection, non-tender, supple, full range of motion Respiratory Exam: normal breath sounds, lungs clear, No respiratory distress Cardiovascular Exam: regular rate/rhythm, normal heart sounds Gastrointestinal/Abdomen Exam: soft, No tenderness, No mass Back Exam: normal inspection, normal range of motion, No CVA tenderness, No vertebral tenderness Extremity Exam: normal inspection, normal range of motion, pelvis stable Neurologic Exam: alert, oriented x 3, cooperative, normal mood/affect, nml cerebellar function, sensation nml, No motor deficits Skin Exam: normal color, warm, dry SpO2: 100 - Course Nursing assessment & vital signs reviewed: Yes - CT Exams Abdomen/Pelvis CT Interpretation: Tele-radiologist Report (colitis) Ordered Tests: Active Orders 24 hr Category Date Time Status ABDOMEN AND PELVIS W/0 CONTRAS [CT] Stat Exams 05/02/21 09:52 Taken AMYLASE Stat Lab 05/02/21 10:00 Completed CBC W DIFF Stat Lab 05/02/21 10:00 Completed CMP Stat Lab 05/02/21 10:00 Completed HCG QUALITATIVE,SERUM Stat Lab 05/02/21 10:00 Completed LIPASE Stat Lab 05/02/21 10:00 Completed UA W/RFX UR CULTURE Stat Lab 05/02/21 09:54 Completed Medication Summary Discontinued Medications Generic Name Dose Route Start Last Admin Trade Name Francis PRN Reason Stop Dose Admin Sodium Chloride 1,000 mls @ 999 mls/hr 05/02/21 09:52 05/02/21 10:58 Sodium Chloride 0.9% 1000 Ml IV 05/02/21 10:52 Infused .Q1H1M STA Infusion Sodium Chloride Confirm 05/02/21 09:56 Sodium Chloride 0.9% 1000 Ml Administered 05/02/21 09:57 Dose 1,000 mls @ ud .ROUTE .STK-MED ONE Morphine Sulfate 4 mg 05/02/21 09:52 05/02/21 10:14 Morphine Sulfate 4 Mg/Ml Injection IV 05/02/21 09:53 4 mg STAT ONE Administration Morphine Sulfate Confirm 05/02/21 09:56 Morphine Sulfate 4 Mg/Ml Injection Administered 05/02/21 09:57 Dose 4 mg .ROUTE .STK-MED ONE Ondansetron HCl 4 mg 05/02/21 10:14 05/02/21 10:15 Ondansetron Hcl 4 Mg/2 Ml Vial IV 05/02/21 10:15 4 mg STAT ONE Administration Ondansetron HCl Confirm 05/02/21 10:14 Ondansetron Hcl 4 Mg/2 Ml Vial Administered 05/02/21 10:15 Dose 4 mg .ROUTE .STK-MED ONE Lab/Rad Data: Laboratory Result Diagrams 05/02/21 10:00 05/02/21 10:00 Laboratory Results 05/02/21 05/02/21 05/02/21 Range/Units 10:00 10:00 10:00 WBC 9.3 (4.0-10.5) K/mm3 RBC 5.51 H (4.1-5.4) M/mm3 Hgb 14.8 (12.0-16.0) gm/dl Hct 45.2 (35-47) % MCV 82.0 (78-100) fl MCH 26.9 (26-32) pg MCHC 32.7 (32-36) g/dl RDW 12.7 (11.5-14.0) % Plt Count 252 (150-450) K/mm3 MPV 9.0 (7.5-11.0) fl Gran % 82.2 H (36.0-66.0) % Eos # (Auto) 0.05 (0-0.5) Absolute Lymphs (auto) 1.04 (1.0-4.6) Absolute Monos (auto) 0.57 (0.0-1.3) Lymphocytes % 11.1 L (24.0-44.0) % Monocytes % 6.1 (0.0-12.0) % Eosinophils % 0.5 (0.00-5.0) % Basophils % 0.1 (0.0-0.4) % Absolute Granulocytes 7.67 H (1.4-6.9) Basophils # 0.01 (0-0.4) Sodium 140 (137-145) mmol/L Potassium 3.9 (3.5-5.1) mmol/L Chloride 107 (98-107) mmol/L Carbon Dioxide 22 (22-30) mmol/L Anion Gap 14.8 (5-15) MEQ/L BUN 10 (7-17) mg/dL Creatinine 0.60 (0.52-1.04) mg/dL Estimated GFR > 60.0 ML/MIN Glucose 106 (74-106) mg/dL Calcium 9.7 (8.4-10.2) mg/dL Total Bilirubin 1.80 H (0.2-1.3) mg/dL AST 19 (14-36) U/L ALT 16 (0-35) U/L Alkaline Phosphatase 80 (38-126) U/L Serum Total Protein 7.6 (6.3-8.2) g/dL Albumin 4.8 (3.5-5.0) g/dL Amylase 36 (30-110) U/L Lipase 43 (23-300) U/L Serum , Qual NEGATIVE (Negative) Urine Color (YELLOW) Urine Appearance (CLEAR) Urine pH (5-6) Ur Specific [place] (1.005-1.025) Urine Protein (Negative) Urine Ketones (NEGATIVE) Urine Blood (0-5) Bennie/ul Urine Nitrite (NEGATIVE) Urine Bilirubin (NEGATIVE) Urine Urobilinogen (0-1) mg/dL Ur Leukocyte Esterase (NEGATIVE) Urine WBC (Auto) (0-5) /HPF Urine RBC (Auto) (0-2) /HPF U Hyaline Cast (Auto) (0-2) /LPF U Epithel Cells (Auto) (FEW) /HPF Urine Bacteria (Auto) (NEGATIVE) /HPF Urine Mucus (Auto) (NEGATIVE) /HPF Urine Culture Reflexed (NO) Urine Glucose (NEGATIVE) mg/dL 05/02/21 Range/Units 09:54 WBC (4.0-10.5) K/mm3 RBC (4.1-5.4) M/mm3 Hgb (12.0-16.0) gm/dl Hct (35-47) % MCV (78-100) fl MCH (26-32) pg MCHC (32-36) g/dl RDW (11.5-14.0) % Plt Count (150-450) K/mm3 MPV (7.5-11.0) fl Gran % (36.0-66.0) % Eos # (Auto) (0-0.5) Absolute Lymphs (auto) (1.0-4.6) Absolute Monos (auto) (0.0-1.3) Lymphocytes % (24.0-44.0) % Monocytes % (0.0-12.0) % Eosinophils % (0.00-5.0) % Basophils % (0.0-0.4) % Absolute Granulocytes (1.4-6.9) Basophils # (0-0.4) Sodium (137-145) mmol/L Potassium (3.5-5.1) mmol/L Chloride (98-107) mmol/L Carbon Dioxide (22-30) mmol/L Anion Gap (5-15) MEQ/L BUN (7-17) mg/dL Creatinine (0.52-1.04) mg/dL Estimated GFR ML/MIN Glucose (74-106) mg/dL Calcium (8.4-10.2) mg/dL Total Bilirubin (0.2-1.3) mg/dL AST (14-36) U/L ALT (0-35) U/L Alkaline Phosphatase (38-126) U/L Serum Total Protein (6.3-8.2) g/dL Albumin (3.5-5.0) g/dL Amylase (30-110) U/L Lipase (23-300) U/L Serum , Qual (Negative) Urine Color YELLOW (YELLOW) Urine Appearance SLIGHTLY CLOUDY (CLEAR) Urine pH 5.0 (5-6) Ur Specific [place] 1.024 (1.005-1.025) Urine Protein NEGATIVE (Negative) Urine Ketones NEGATIVE (NEGATIVE) Urine Blood MODERATE (0-5) Bennie/ul Urine Nitrite NEGATIVE (NEGATIVE) Urine Bilirubin NEGATIVE (NEGATIVE) Urine Urobilinogen NEGATIVE (0-1) mg/dL Ur Leukocyte Esterase NEGATIVE (NEGATIVE) Urine WBC (Auto) 3-5 (0-5) /HPF Urine RBC (Auto) 3-5 (0-2) /HPF U Hyaline Cast (Auto) 0-2 (0-2) /LPF U Epithel Cells (Auto) FEW (FEW) /HPF Urine Bacteria (Auto) RARE (NEGATIVE) /HPF Urine Mucus (Auto) SLIGHT (NEGATIVE) /HPF Urine Culture Reflexed NO (NO) Urine Glucose NEGATIVE (NEGATIVE) mg/dL - Progress Progress: improved, pain not gone completely Counseled pt/family regarding: lab results, diagnosis, need for follow-up, rad results - Departure Departure Disposition: Home Clinical Impression: Nonspecific colitis Condition: Stable Critical Care Time: Yes Critical Care Time(excluding separately billable procedures): Critical 30-74 mins Referrals: DOCTOR,NO FAMILY [Primary Care Provider] - Follow up/PCP as directed KENNY CARRASCO MD [ACTIVE STAFF] - Follow Up with PCP/3 days Instructions: Colitis, Acute Abdomen (Belly Pain), Adult (DC) Additional Instructions: Discharge/Care Plan ROSANNA BURNETT was seen on 05/02/21 in the Emergency Room. The patient was counseled regarding Diagnosis,Lab results, Imaging studies, need for follow up and when to return to the Emergency Room. Prescriptions given: Discharge Note I have spoken with the patient and/or caregivers. I have explained the patient's condition, diagnosis and treatment plan based on the information available to me at this time. I have answered the patient's and/or caregiver's questions and addressed any concerns. The patient and/or caregivers have as good understanding of the patient's diagnosis, condition and treatment plan as can be expected at this point. The vital signs have been stable. The patient's condition is stable and appropriate for discharge from the emergency department. The patient will pursue further outpatient evaluation with the primary care physician or other designated or consulting physician as outlined in the discharge instructions. The patient and/or caregivers are agreeable to this plan of care and follow-up instructions have been explained in detail. The patient and/or caregivers have received these instruction. The patient/and or caregivers are aware that any significant change in condition or worsening of symptoms should prompt an immediate return to this or the closest emergency department or call 911. ROSANNA BURNETT was seen on 05/02/21 n the Emergency Room. At that time you were treated for an emergent condition, during your visit Laboratory, Radiology and/or other procedures may have been ordered. It is very important that you follow-up with your Primary Care Physician NO FAMILY DOCTOR within the next 24- 48 hours to review your Emergency Room visit and the final results of testing that was ordered. Some test results such as Urine Cultures, Blood Cultures, and other cultures if ordered will not be finalized for 24-48 hours. If you do not have a Primary Care Provider please call the medical records department at [phone] ext [phone] to obtain a copy of your results or you may sign into our patient portal to obtain these results by visiting us @ [email or web address] and completing the following steps: 1. Click on the Patient Portal link 2. Click the Patient Self Enrollment Link to complete the enrollment form and entering your 3. Once the enrollment form is completed you will receive an email with a temporary ID and password at the email address you provided. 4. Next choose a user name and password. Your user name must be at least 4 characters long and your password must be at least 4 characters long. 5. Choose a security question from the list and provide your answer to the question. If you already have signed into the Health Portal you may access your Health Care Information 13/09 by the following steps: 1. Login to our website @ [email or web address] 2. Enter your original user name and password. FAQS The [facility] Health Portal is an online tool that contains your Lab Results, Radiology Reports, Visit History, Discharge Instructions and Health Summary Lab and Radiology Results will not be available for 72 hours on the portal. The Portal is a secure site, passwords are encryted and URLs are re-written so they cannot be copied and pasted. You and authorized family members are the only ones who can access your Portal. Also there is a timeout feature that protects your information if you leave the Portal page open. If you have technical difficulty please use the Contact Us link on the page this will allow you to submit any questions you have regarding the Portal or you may contact the Medical Record Department at [phone] ext [phone]. Prescriptions: Metronidazole 500 mg [Flagyl 500 MG] 500 mg PO TID #21 tablet
[2021-05-02 10:06] LABS: Absolute Neutrophil Ct (ANC) 7.67 (1.4-6.9); Basophil (Absolute #) 0.01 (0-0.4); Eosinophil % 0.5 % (0.00-5.0); Eosinophil (Absolute #) 0.05 (0-0.5); Hematocrit 45.2 % (35-47); Hemoglobin 14.8 gm/dl (12.0-16.0); Lymphocyte (Absolute #) 1.04 (1.0-4.6); Lymphocytes % 11.1 % (24.0-44.0); Mean Corpuscular Hemoglobin 26.9 pg (26-32); Mean Corpuscular Hgb Concent. 32.7 g/dl (32-36); Monocyte (Absolute #) 0.57 (0.0-1.3); Monocytes % 6.1 % (0.0-12.0); Neutrophil % 82.2 % (36.0-66.0); Platelet Count 252 K/mm3 (150-450); Red Blood Count 5.51 M/mm3 (4.1-5.4); Red Cell Distribution Width 12.7 % (11.5-14.0); White Blood Count 9.3 K/mm3 (4.0-10.5)
[2021-05-02] MEDS ORDERED: Zofran 4 MG/2 ML VIAL IV ONE (10:14)
[2021-05-02] MEDS ORDERED: Zofran 4 MG/2 ML VIAL ONE (10:14)
[2021-05-02 10:20] LABS: ALBUMIN 4.8 g/dL (3.5-5.0); ALKALINE PHOSPHATASE 80 U/L (38-126); AMYLASE 36 U/L (30-110); ANION GAP 14.8 MEQ/L (5-15); BLOOD UREA NITROGEN 10 mg/dL (7-17); CHLORIDE 107 mmol/L (98-107); Calcium 9.7 mg/dL (8.4-10.2); Carbon Dioxide 22 mmol/L (22-30); EST GLOMERULAR FILTRATION RATE > 60.0 ML/MIN; Glucose 106 mg/dL (74-106); LIPASE 43 U/L (23-300); Potassium 3.9 mmol/L (3.5-5.1); SGOT/AST 19 U/L (14-36); SGPT/ALT 16 U/L (0-35); SODIUM 140 mmol/L (137-145); Total Protein 7.6 g/dL (6.3-8.2)
[2021-05-02 11:33] VITALS: BP 111/70; PULSE 72; O2SAT 99
--- NOTE | 2021-05-02 19:58 | XRAY ---
Indication: Right lower quadrant pain 1 month. Bloody diarrhea. Multiple contiguous axial images obtained through the abdomen and pelvis without contrast. Comparison: None Lung bases demonstrates minimal dependent atelectasis. No infiltrate or effusion. Heart not enlarged. Noncontrasted stomach and bowel loops appear nonobstructed with normal appendix. No free fluid/air. Remaining liver, gallbladder, pancreas, spleen, adrenal glands, kidneys, ureters, bladder, uterus, and aorta appear unremarkable for noncontrast exam. Osseous structures intact. No ventral or inguinal hernias. Impression: Negative CT abdomen/pelvis without contrast exam. Comment: Preliminary interpretation made by C. No critical discrepancy.
== END 2021-05-02 11:42 | disposition home or self-care (01) ==
LOC: ED 09:37
DX: K52.9 Noninfective gastroenteritis and colitis, unspecified (principal); R10.31 Right lower quadrant pain; Z72.0 Tobacco use
CPT/HCPCS: 36000; 36415; 74176; 80053; 81001; 81025; 82150; 83690; 85025; 96374; 96375; 99284; 99291; J2270; J2405

== ENCOUNTER 2021-07-03 14:02 | Emergency (ER) | payer BC, MEDICAID ==
--- NOTE | 2021-07-03 14:10 | ERPHSYRPT ---
- History of Present Illness Time Seen by Provider: 07/03/21 14:09 Historian: patient Exam Limitations: no limitations Physician History: This is a 26-year-old white female who has not had any prior abdominal surgeries and presents with right upper quadrant to right mid quadrant abdominal pain with associated nausea vomiting and now dry heaves. Her symptoms have been worsening over the last few weeks. Patient had a CAT scan of the abdomen pelvis 2 days ago which showed a normal appendix. In fact, it was normal CT scan of the abdomen pelvis without contrast. Patient delivered a child approximately 6 months ago by vaginal delivery. Patient is not breast-feeding. Patient has not had an ultrasound of her gallbladder. She feels bloated belching gassy as well. Initially her symptoms were intermittent and now they are more constant in the last few days. Patient denies chest pain. She denies shortness of breath. Patient was recently placed on Cipro and hydrocodone. She has not taken any of the medication. She is concerned that she would become too fatigued and tired and not be able to care for her new child. Timing/Duration: week(s) (A few) Abdominal Pain Onset Location: RUQ Pain Radiation: shoulder (Right), back (Right) Severity of Pain-Max: moderate Severity of Pain-Current: moderate Modifying Factors: Improves With: vomiting Associated Symptoms: loss of appetite, nausea, vomiting Previous symptoms: same symptoms as today, recently seen, recently treated Allergies/Adverse Reactions: No Known Drug Allergies Allergy (Verified 05/02/21 09:45) STATES WAS ALLERGIC TO THREE DIFFERENT TYPES OF HEADACHE MEDICATIONS BUT DOESN'T KNOW WHAT THEY WERE, SAID IT WAS A LONG TIME AGO. Home Medications: Ciprofloxacin HCl [Cipro] 500 mg PO DAILY 07/03/21 [History] Hydrocodone/Acetaminophen [Hydrocodone-Acetamin 5-325 mg] 1 each PO 07/03/21 [History] Hx Tetanus, Diphtheria Vaccination/Date Given: Yes Hx Influenza Vaccination/Date Given: Yes Hx Pneumococcal Vaccination/Date Given: No Travel Risk - International Travel Have you traveled outside of the country in past 3 weeks: No - Coronavirus Screening Are you exhibiting any of the following symptoms?: No Close contact with a COVID-19 positive Pt in past 14-21 Days: No - Vaccine Status Have you recieved a Covid-19 vaccination: No - Review of Systems Constitutional: No Symptoms Eyes: No Symptoms Ears, Nose, & Throat: No Symptoms Respiratory: No Symptoms Cardiac: No Symptoms Abdominal/Gastrointestinal: Abdominal Pain, Nausea, Vomiting, Appetite Changes Genitourinary Symptoms: No Symptoms Musculoskeletal: No Symptoms Skin: No Symptoms Neurological: No Symptoms Psychological: No Symptoms Endocrine: No Symptoms Hematologic/Lymphatic: No Symptoms Immunological/Allergic: No Symptoms All Other Systems: Reviewed and Negative - Past Medical History Pertinent Past Medical History: No Neurological History: No Pertinent History ENT History: No Pertinent History Cardiac History: No Pertinent History Respiratory History: No Pertinent History Endocrine Medical History: No Pertinent History Musculoskeletal History: No Pertinent History GI Medical History: No Pertinent History History: No Pertinent History Psycho-Social History: No Pertinent History Female Reproductive Disorders: No Pertinent History - Past Surgical History Past Surgical History: No Neuro Surgical History: No Pertinent History Cardiac: No Pertinent History Respiratory: No Pertinent History Gastrointestinal: No Pertinent History Genitourinary: No Pertinent History Musculoskeletal: No Pertinent History Female Surgical History: No Pertinent History - Social History Smoking Status: Current every day smoker How long have you smoked: 2.5 yars Exposure to second hand smoke: Yes Drug Use: none Patient Lives Alone: No - Nursing Vital Signs Nursing Vital Signs: Initial Vital Signs Temperature 97.8 F 07/03/21 14:12 Pulse Rate 86 07/03/21 14:12 Respiratory Rate 20 07/03/21 14:12 Blood Pressure 129/83 07/03/21 14:12 O2 Sat by Pulse Oximetry 100 07/03/21 14:12 Pain Scale Pain Intensity 2 - Physical Exam General Appearance: mild distress, alert, anxiety Eye Exam: PERRL/EOMI, eyes nml inspection Ears, Nose, Throat Exam: normal ENT inspection, moist mucous membranes Neck Exam: normal inspection, non-tender, supple, full range of motion Respiratory Exam: normal breath sounds, lungs clear, respiratory distress, airway intact, No chest tenderness Cardiovascular Exam: regular rate/rhythm, normal heart sounds, normal peripheral pulses Gastrointestinal/Abdomen Exam: soft, normal bowel sounds, tenderness (And upper quadrant), guarding (Right upper quadrant with palpation), No rebound Pelvic Exam: not done Rectal Exam: not done Back Exam: normal inspection, normal range of motion, No CVA tenderness, No vertebral tenderness Extremity Exam: normal inspection, normal range of motion, pelvis stable Neurologic Exam: alert, oriented x 3, cooperative, [employer] II-XII nml as tested, normal mood/affect, nml cerebellar function, nml station & gait, sensation nml Skin Exam: normal color, warm, dry Lymphatic Exam: No adenopathy SpO2 Interpretation: normal O2 Delivery: Room Air - Course Nursing assessment & vital signs reviewed: Yes Ordered Tests: Active Orders 24 hr Category Date Time Status IV Insertion STAT Care 07/03/21 14:24 Active ABDOMEN AND PELVIS W/0 CONTRAS [CT] Stat Exams 07/03/21 15:46 Taken GALLBLADDER [US] Stat Exams 07/03/21 14:25 Completed AMYLASE Stat Lab 07/03/21 14:24 Completed BLOOD CULTURE Stat Lab 07/03/21 14:30 Received CBC W DIFF Stat Lab 07/03/21 14:24 Completed CMP Stat Lab 07/03/21 14:24 Completed HCG,QUALITATIVE URINE Stat Lab 07/03/21 14:28 Completed LIPASE Stat Lab 07/03/21 14:24 Completed Lactic Acid Stat Lab 07/03/21 14:29 Completed UA W/RFX CULTURE Stat Lab 07/03/21 14:28 Completed Medication Summary Discontinued Medications Generic Name Dose Route Start Last Admin Trade Name Freq PRN Reason Stop Dose Admin Hydromorphone HCl 1 mg 07/03/21 14:24 07/03/21 14:33 Hydromorphone 1 Mg/1ml Inj 1 Mg/Ml Syringe IV 07/03/21 14:25 1 mg STAT ONE Administration Hydromorphone HCl Confirm 07/03/21 14:30 Hydromorphone 1 Mg/1ml Inj 1 Mg/Ml Syringe Administered 07/03/21 14:31 Dose 1 mg .ROUTE .STK-MED ONE Sodium Chloride 1,000 mls @ 999 mls/hr 07/03/21 14:24 07/03/21 15:40 Sodium Chloride 0.9% 1000 Ml IV 07/03/21 15:24 Infused .Q1H1M STA Infusion Sodium Chloride Confirm 07/03/21 14:31 Sodium Chloride 0.9% 1000 Ml Administered 07/03/21 14:32 Dose 1,000 mls @ ud .ROUTE .STK-MED ONE Sodium Chloride 1,000 mls @ 999 mls/hr 07/03/21 15:32 07/03/21 17:01 Sodium Chloride 0.9% 1000 Ml IV 07/03/21 16:32 Infused .Q1H1M STA Infusion Sodium Chloride Confirm 07/03/21 15:41 Sodium Chloride 0.9% 1000 Ml Administered 07/03/21 15:42 Dose 1,000 mls @ ud .ROUTE .STK-MED ONE Ondansetron HCl 4 mg 07/03/21 14:24 07/03/21 14:32 Ondansetron Hcl 4 Mg/2 Ml Vial IV 07/03/21 14:25 4 mg STAT ONE Administration Ondansetron HCl Confirm 07/03/21 14:30 Ondansetron Hcl 4 Mg/2 Ml Vial Administered 07/03/21 14:31 Dose 4 mg .ROUTE .STK-MED ONE Lab/Rad Data: Laboratory Result Diagrams 07/03/21 14:24 07/03/21 14:24 Laboratory Results 07/03/21 07/03/21 07/03/21 Range/Units 14:29 14:28 14:28 WBC (4.0-10.5) K/mm3 RBC (4.1-5.4) M/mm3 Hgb (12.0-16.0) gm/dl Hct (35-47) % MCV (78-100) fl MCH (26-32) pg MCHC (32-36) g/dl RDW (11.5-14.0) % Plt Count (150-450) K/mm3 MPV (7.5-11.0) fl Gran % (36.0-66.0) % Eos # (Auto) (0-0.5) Absolute Lymphs (auto) (1.0-4.6) Absolute Monos (auto) (0.0-1.3) Lymphocytes % (24.0-44.0) % Monocytes % (0.0-12.0) % Eosinophils % (0.00-5.0) % Basophils % (0.0-0.4) % Absolute Granulocytes (1.4-6.9) Basophils # (0-0.4) Sodium (137-145) mmol/L Potassium (3.5-5.1) mmol/L Chloride (98-107) mmol/L Carbon Dioxide (22-30) mmol/L Anion Gap (5-15) MEQ/L BUN (7-17) mg/dL Creatinine (0.52-1.04) mg/dL Estimated GFR ML/MIN Glucose (74-106) mg/dL Lactic Acid 1.0 (0.4-2.0) Calcium (8.4-10.2) mg/dL Total Bilirubin (0.2-1.3) mg/dL AST (14-36) U/L ALT (0-35) U/L Alkaline Phosphatase (38-126) U/L Serum Total Protein (6.3-8.2) g/dL Albumin (3.5-5.0) g/dL Amylase (30-110) U/L Lipase (23-300) U/L Urinalys Dipstick Clnc MAIN LAB Urine Color YELLOW (YELLOW) Urine Appearance CLEAR (CLEAR) Urine pH 6.0 (5-6) Ur Specific [employer] >=1.030 (1.005-1.025) POC Urine Protein Conf NEGATIVE (Negative) Urine Ketones SMALL-15 (NEGATIVE) Urine Nitrite NEGATIVE (NEGATIVE) Urine Bilirubin NEGATIVE (NEGATIVE) Urine Urobilinogen 0.2 (0-1) mg/dL Urine Leukocytes NEGATIVE (NEGATIVE) Urine WBC (Auto) 3-5 (0-5) /HPF Urine RBC (Auto) 0-2 (0-2) /HPF U Epithel Cells (Auto) RARE (FEW) /HPF Urine Bacteria (Auto) NONE (NEGATIVE) /HPF Urine RBC NEGATIVE (0-5) Bennie/ul Urine Mucus (Auto) MANY (NEGATIVE) /HPF Ur Culture Indicated? NO Urine Glucose NEGATIVE (NEGATIVE) mg/dL Urine HCG, Qual NEGATIVE (Negative) 07/03/21 07/03/21 Range/Units 14:24 14:24 WBC 5.7 (4.0-10.5) K/mm3 RBC 6.01 H (4.1-5.4) M/mm3 Hgb 15.9 (12.0-16.0) gm/dl Hct 48.7 H (35-47) % MCV 81.0 (78-100) fl MCH 26.5 (26-32) pg MCHC 32.6 (32-36) g/dl RDW 12.8 (11.5-14.0) % Plt Count 313 (150-450) K/mm3 MPV 8.9 (7.5-11.0) fl Gran % 66.6 H (36.0-66.0) % Eos # (Auto) 0.01 (0-0.5) Absolute Lymphs (auto) 1.54 (1.0-4.6) Absolute Monos (auto) 0.36 (0.0-1.3) Lymphocytes % 26.7 (24.0-44.0) % Monocytes % 6.3 (0.0-12.0) % Eosinophils % 0.2 (0.00-5.0) % Basophils % 0.2 (0.0-0.4) % Absolute Granulocytes 3.84 (1.4-6.9) Basophils # 0.01 (0-0.4) Sodium 141 (137-145) mmol/L Potassium 3.6 (3.5-5.1) mmol/L Chloride 103 (98-107) mmol/L Carbon Dioxide 25 (22-30) mmol/L Anion Gap 17.3 H (5-15) MEQ/L BUN 13 (7-17) mg/dL Creatinine 0.63 (0.52-1.04) mg/dL Estimated GFR > 60.0 ML/MIN Glucose 99 (74-106) mg/dL Lactic Acid (0.4-2.0) Calcium 9.8 (8.4-10.2) mg/dL Total Bilirubin 2.20 H (0.2-1.3) mg/dL AST 22 (14-36) U/L ALT 17 (0-35) U/L Alkaline Phosphatase 73 (38-126) U/L Serum Total Protein 8.6 H (6.3-8.2) g/dL Albumin 5.1 H (3.5-5.0) g/dL Amylase 70 (30-110) U/L Lipase 63 (23-300) U/L Urinalys Dipstick Clnc Urine Color (YELLOW) Urine Appearance (CLEAR) Urine pH (5-6) Ur Specific [employer] (1.005-1.025) POC Urine Protein Conf (Negative) Urine Ketones (NEGATIVE) Urine Nitrite (NEGATIVE) Urine Bilirubin (NEGATIVE) Urine Urobilinogen (0-1) mg/dL Urine Leukocytes (NEGATIVE) Urine WBC (Auto) (0-5) /HPF Urine RBC (Auto) (0-2) /HPF U Epithel Cells (Auto) (FEW) /HPF Urine Bacteria (Auto) (NEGATIVE) /HPF Urine RBC (0-5) Bennie/ul Urine Mucus (Auto) (NEGATIVE) /HPF Ur Culture Indicated? Urine Glucose (NEGATIVE) mg/dL Urine HCG, Qual (Negative) - Progress Progress: improved, re-examined Progress Note: 07/03/21 15:44 Medical decision making: Patient's symptoms have significantly improved. She now states she has a mild ache in the right upper quadrant. However she is does have some pain in the right mid to lower quadrant as well. I did discuss repeating the CAT scan with the patient. After her thinking about it, and the fact she has to stay for another liter of fluid to be infused, patient states that she wants to undergo the CAT scan of the abdomen pelvis just to make sure there is nothing else going on. Patient has Cipro, [place] pain medicine and an a ntiemetic at home. 07/03/21 15:48 Gallbladder ultrasound shows several tiny gallstones and gravel in the dependent portion of the gallbladder. No abnormal gallbladder wall thickening or pericholecystic fluid 07/03/21 18:11 CAT scan of the abdomen pelvis without contrast shows no acute intra abdominal or intrapelvic abnormalities. The appendix is visualized and it is a normal appendix. Patient states she is feeling very well at this time. Patient has Cipro, antiemetic and pain medicine at home which she will take. Counseled pt/family regarding: lab results, diagnosis, need for follow-up, rad results - Departure Departure Disposition: Home Clinical Impression: Symptomatic cholelithiasis Condition: Stable Critical Care Time: No Referrals: MAKAYLA ALVA MD [Primary Care Provider] - Follow up/PCP as directed Additional Instructions: Drink plenty of clear liquids. Avoid fatty greasy spicy foods. Contact your primary care physician on 07/06/2021, to make arrangements for further evaluation and management including referral to a general surgeon as indicated. If symptoms worsen, return to the emergency department.
[2021-07-03] MEDS ORDERED: Zofran 4 MG/2 ML VIAL IV ONE (14:24)
[2021-07-03] MEDS ORDERED: Sodium Chloride 0.9% 1000 ML 1,000 ML IV STA ×2 (14:24→15:32)
[2021-07-03] MEDS ORDERED: Hydromorphone 1 mg/ml Injection IV ONE (14:24)
[2021-07-03] MEDS ORDERED: Hydromorphone 1 mg/ml Injection ONE (14:30)
[2021-07-03] MEDS ORDERED: Zofran 4 MG/2 ML VIAL ONE (14:30)
[2021-07-03] MEDS ORDERED: Sodium Chloride 0.9% 1000 ML 1,000 ML ONE ×2 (14:31→15:41)
[2021-07-03 14:39] LABS: Hematocrit 48.7 % (35-47); Hemoglobin 15.9 gm/dl (12.0-16.0); Mean Corpuscular Hemoglobin 26.5 pg (26-32); Mean Corpuscular Hgb Concent. 32.6 g/dl (32-36); Red Blood Count 6.01 M/mm3 (4.1-5.4); Red Cell Distribution Width 12.8 % (11.5-14.0); White Blood Count 5.7 K/mm3 (4.0-10.5)
[2021-07-03 14:40] LABS: Absolute Neutrophil Ct (ANC) 3.84 (1.4-6.9); Basophil (Absolute #) 0.01 (0-0.4); Eosinophil % 0.2 % (0.00-5.0); Eosinophil (Absolute #) 0.01 (0-0.5); Lymphocyte (Absolute #) 1.54 (1.0-4.6); Lymphocytes % 26.7 % (24.0-44.0); Mean Platelet Volume 8.9 fl (7.5-11.0); Monocyte (Absolute #) 0.36 (0.0-1.3); Monocytes % 6.3 % (0.0-12.0); Neutrophil % 66.6 % (36.0-66.0); Platelet Count 313 K/mm3 (150-450)
[2021-07-03 14:52] LABS: ALBUMIN 5.1 g/dL (3.5-5.0); ALKALINE PHOSPHATASE 73 U/L (38-126); AMYLASE 70 U/L (30-110); ANION GAP 17.3 MEQ/L (5-15); BLOOD UREA NITROGEN 13 mg/dL (7-17); CHLORIDE 103 mmol/L (98-107); Calcium 9.8 mg/dL (8.4-10.2); Carbon Dioxide 25 mmol/L (22-30); Creatinine 1 0.63 mg/dL (0.52-1.04); EST GLOMERULAR FILTRATION RATE > 60.0 ML/MIN; Glucose 99 mg/dL (74-106); LIPASE 63 U/L (23-300); Potassium 3.6 mmol/L (3.5-5.1); SGOT/AST 22 U/L (14-36); SGPT/ALT 17 U/L (0-35); SODIUM 141 mmol/L (137-145); Total Protein 8.6 g/dL (6.3-8.2)
[2021-07-03 15:01] LABS: Epithelial Cells RARE /HPF (FEW); Mucus MANY /HPF (NEGATIVE); RBC 0-2 /HPF (0-2)
[2021-07-03 15:02] LABS: Appearance CLEAR (CLEAR); Bilirubin NEGATIVE (NEGATIVE); Glucose NEGATIVE (NEGATIVE)
[2021-07-03 15:03] LABS: Dipstick done @ ? MAIN LAB; Ketones SMALL-15 (NEGATIVE); Nitrite NEGATIVE (NEGATIVE); Protein,Urine Dip NEGATIVE (Negative); RBC NEGATIVE Ery/ul (0-5); Specific Gravity >=1.030 (1.005-1.025); Urine Cultured Indicated? NO; Urobilinogen 0.2 mg/dL (0-1)
[2021-07-03 15:06] VITALS: O2SAT 98
--- NOTE | 2021-07-03 15:13 | XRAY ---
Indication: Abdomen pain. Negative CT abdomen/pelvis 2 days earlier. Two-dimensional gallbladder sonogram performed. Comparison: None Pancreas not well-seen due to overlying bowel gas. Gallbladder normally distended with several tiny gallstones/gravel in the dependent portion. No abnormal gallbladder wall thickening or pericholecystic fluid. Common bile duct measures 4.4 mm. No intrahepatic biliary distention. Remaining visualized liver and right kidney are sonographically unremarkable. Right kidney measures 11.9 cm in length. No ascites. Impression: Nonvisualization pancreas. Cholelithiasis without cholecystitis/biliary distention.
[2021-07-03 18:13] VITALS: BP 114/67; PULSE 76
--- NOTE | 2021-07-04 06:58 | XRAY ---
Indication: Right abdominal pain. Tiny gallstones on same-day sonogram. Multiple contiguous axial images obtained through the abdomen and pelvis without contrast. Comparison: May 02 and July 01, 2021. Lung bases remain clear. Heart not enlarged. Noncontrasted stomach and bowel loops nonobstructed with normal appendix. No free fluid/air. Remaining liver, gallbladder, pancreas, spleen, adrenal glands, kidneys, ureters, bladder, uterus, and aorta remain unremarkable for noncontrast exam. Impression: Continued negative CT abdomen/pelvis without contrast exam. Comment: Preliminary interpretation made by [facility]. No critical discrepancy.
== END 2021-07-03 18:16 | disposition home or self-care (01) ==
LOC: ED 14:02
DX: K80.20 Calculus of gallbladder without cholecystitis without obstruction (principal); R10.11 Right upper quadrant pain; R11.2 Nausea with vomiting, unspecified; Z72.0 Tobacco use; Z79.891 Long term (current) use of opiate analgesic
CPT/HCPCS: 36000; 36415; 74176; 76705; 80053; 81015; 82150; 83605; 83690; 84703; 85025; 87040; 96360; 96361; 96374; 96375; 99285; J1170; J2405

== ENCOUNTER 2022-08-26 15:05 | Emergency (ER) | payer BC, MEDICAID ==
[2022-08-26 15:28] LABS: Absolute Neutrophil Ct (ANC) 6.27 x10^3/uL (1.4-6.9); BASOPHIL % 0.2 % (0.0-0.4); Basophil (Absolute #) 0.02 x10^3/uL (0-0.4); Eosinophil % 0.2 % (0.00-5.0); Eosinophil (Absolute #) 0.02 x10^3/uL (0-0.5); Hematocrit 45.2 % (35-47); Hemoglobin 14.9 g/dL (12.0-16.0); IMMATURE GRAN # 0.01 x10^3u/L (0.00-0.03); IMMATURE GRAN % 0.1 % (0.00-0.4); Lymphocyte (Absolute #) 1.47 x10^3/uL (1.0-4.6); Lymphocytes % 18.1 % (24.0-44.0); Mean Platelet Volume 8.7 fL (7.5-11.0); Monocyte (Absolute #) 0.32 x10^3/uL (0.0-1.3); Monocytes % 3.9 % (0.0-12.0); Neutrophil % 77.5 % (36.0-66.0); Platelet Count 294 x10^3/uL (150-450); Red Blood Count 5.51 x10^6/uL (4.1-5.4); White Blood Count 8.1 x10^3/uL (4.0-10.5)
[2022-08-26 15:33] LABS: HCG URINE TEST POSITIVE (NEGATIVE)
[2022-08-26 15:52] LABS: ALBUMIN 4.8 g/dL (3.5-5.0); ALKALINE PHOSPHATASE 53 U/L (38-126); ANION GAP 17.4 MEQ/L (5-15); BLOOD UREA NITROGEN 5 mg/dL (7-17); CHLORIDE 104 mmol/L (98-107); Calcium 9.2 mg/dL (8.4-10.2); Carbon Dioxide 21 mmol/L (22-30); Creatinine 1 0.56 mg/dL (0.52-1.04); EST GLOMERULAR FILTRATION RATE > 60.0 ML/MIN; Glucose 94 mg/dL (74-106); NT PRO BNPII 53.1 pg/mL (<300); Potassium 3.5 mmol/L (3.5-5.1); SGOT/AST 23 U/L (14-36); SGPT/ALT 22 U/L (0-35); SODIUM 138 mmol/L (137-145); Total Protein 8.4 g/dL (6.3-8.2)
--- NOTE | 2022-08-26 16:36 | XRAY ---
Indication: DVT. Two-dimensional sonogram and color Doppler imaging of the major venous vessels of the left and right leg performed. Comparison: None No thrombus seen in the examined deep venous vessels of the left and right leg including greater saphenous vein. Veins demonstrate normal compressibility. Venous waveforms are normal with and without augmentation. Impression: Left and right leg negative for DVT.
[2022-08-26 18:02] VITALS: O2SAT 99
[2022-08-26 19:03] VITALS: BP 100/62; PULSE 76
--- NOTE | 2022-08-26 19:55 | ERPHSYRPT ---
- History of Present Illness Time Seen by Provider: 08/26/22 19:51 Exam Limitations: no limitations Patient Subjective Stated Complaint: Chest pain/weakness Triage Nursing Assessment: Patient brought to ED per w/c and transferred to bed per self. Patient A+O X 3. Patient's skin pink, warm and dry. Patient complains of chest heaviness and weakness since she woke up today. Patient states she believes she is also 6 weeks , but unconfirmed. Physician History: Patient is a 27-year-old female presents to our ED for evaluation of chest pres sure. Patient states she has been experiencing the symptoms over the past few days. Patient wakes up she feels her extremities are trembling. Patient states her legs feel weak. Patient is unsure whether or not she is experiencing a panic attack. Chest pressure is across her chest. No shortness of breath per se. No trauma. No fever. Patient believes she is currently 6 weeks . LMP was 07/10/2022. Patient is M1. Patient states she has history of anemia. Patient has a history of vitamin D3 deficiency. Patient taking supplementation for these problems. Patient otherwise healthy. She voices no other complaints or concerns at this time. Significant other at bedside. Portions of this note were created with voice recognition technology. There may be grammatical, spelling, punctuation or sound alike errors Timing/Duration: yesterday Severity: moderate Modifying Factors: Improves With: nothing Associated Symptoms: denies symptoms Allergies/Adverse Reactions: No Known Drug Allergies Allergy (Verified 08/26/22 15:11) STATES WAS ALLERGIC TO THREE DIFFERENT TYPES OF HEADACHE MEDICATIONS BUT DOESN'T KNOW WHAT THEY WERE, SAID IT WAS A LONG TIME AGO. Home Medications: No Reportable Medications [No Reported Medications] 08/07/21 [History] Hx Tetanus, Diphtheria Vaccination/Date Given: Yes Hx Influenza Vaccination/Date Given: Yes Hx Pneumococcal Vaccination/Date Given: No Travel Risk - International Travel Have you traveled outside of the country in past 3 weeks: No - Coronavirus Screening Are you exhibiting any of the following symptoms?: No Close contact with a COVID-19 positive Pt in past 14-21 Days: No - Vaccine Status Have you recieved a Covid-19 vaccination: No - Review of Systems Constitutional: No Symptoms, No Fever, No Chills Eyes: No Symptoms Ears, Nose, & Throat: No Symptoms Respiratory: No Symptoms, No Cough, No Dyspnea Cardiac: No Symptoms, No Chest Pain, No Edema, No Syncope Abdominal/Gastrointestinal: No Symptoms, No Abdominal Pain, No Nausea, No Vomiting, No Diarrhea Genitourinary Symptoms: No Symptoms, No Dysuria Musculoskeletal: No Symptoms, No Back Pain, No Neck Pain Skin: No Symptoms, No Rash Neurological: No Symptoms, No Dizziness, No Focal Weakness, No Sensory Changes Psychological: No Symptoms Endocrine: No Symptoms Hematologic/Lymphatic: No Symptoms Immunological/Allergic: No Symptoms All Other Systems: Reviewed and Negative - Past Medical History Pertinent Past Medical History: No Neurological History: No Pertinent History ENT History: No Pertinent History Cardiac History: No Pertinent History Respiratory History: No Pertinent History Endocrine Medical History: No Pertinent History Musculoskeletal History: No Pertinent History GI Medical History: Gallbladder Disease History: No Pertinent History Psycho-Social History: No Pertinent History Female Reproductive Disorders: No Pertinent History Other Medical History: Gall stones. Gilbert's syndrome. Anemia - Past Surgical History Past Surgical History: No Neuro Surgical History: No Pertinent History Cardiac: No Pertinent History Respiratory: No Pertinent History Gastrointestinal: No Pertinent History Genitourinary: No Pertinent History Musculoskeletal: No Pertinent History Female Surgical History: No Pertinent History - Social History Smoking Status: Current every day smoker How long have you smoked: 2.5 yars Exposure to second hand smoke: Yes Drug Use: none Patient Lives Alone: No - Female History Hx Last Menstrual Period: July 10, 2022 Hx Now: Yes - Nursing Vital Signs Nursing Vital Signs: Initial Vital Signs Temperature 97.8 F 08/26/22 15:12 Pulse Rate 88 08/26/22 15:12 Respiratory Rate 18 08/26/22 15:12 Blood Pressure 109/68 08/26/22 15:12 O2 Sat by Pulse Oximetry 100 08/26/22 15:12 Pain Scale Pain Intensity 0 - Physical Exam General Appearance: no apparent distress, alert Eye Exam: PERRL/EOMI, eyes nml inspection Ears, Nose, Throat Exam: normal ENT inspection, TMs normal, pharynx normal, moist mucous membranes Neck Exam: normal inspection, non-tender, supple, full range of motion Respiratory Exam: normal breath sounds, lungs clear, airway intact, No respiratory distress Cardiovascular Exam: regular rate/rhythm, normal heart sounds, normal peripheral pulses Gastrointestinal/Abdomen Exam: soft, normal bowel sounds, No tenderness, No mass Pelvic Exam: not done Back Exam: normal inspection, normal range of motion, No CVA tenderness, No vertebral tenderness Extremity Exam: normal inspection, normal range of motion, pelvis stable Neurologic Exam: alert, oriented x 3, cooperative, normal mood/affect, nml cerebellar function, nml station & gait, sensation nml, No motor deficits Skin Exam: normal color, warm, dry, No rash Lymphatic Exam: No adenopathy SpO2 Interpretation: normal SpO2: 99 O2 Delivery: Room Air - Course Nursing assessment & vital signs reviewed: Yes EKG Interpreted by Me: RATE ([id number]), Sinus Rhythm, NORMAL AXIS, NORMAL INTERVALS Ordered Tests: Active Orders 24 hr Category Date Time Status Measurement Analyst STAT Care 08/26/22 15:11 Active EKG-ER Only STAT Care 08/26/22 15:09 Active IV Insertion STAT Care 08/26/22 15:09 Active Pulse Oximetry (ED) STAT Care 08/26/22 15:09 Active VENOUS BILATERAL EXTREMITY [US] Stat Exams 08/26/22 15:45 Completed CBC W DIFF Stat Lab 08/26/22 15:20 Completed CMP Stat Lab 08/26/22 15:20 Completed D-DIMER QUANTITATIVE Stat Lab 08/26/22 15:20 Completed HCG QUALITATIVE, URINE Stat Lab 08/26/22 15:20 Completed NT PRO BNPII Stat Lab 08/26/22 15:20 Completed TROPONIN Q4H Lab 08/26/22 15:20 Completed TROPONIN Q4H Lab 08/26/22 18:15 Completed TROPONIN Q4H Lab 08/26/22 23:15 Ordered Lab/Rad Data: Laboratory Result Diagrams 08/26/22 15:20 08/26/22 15:20 Laboratory Results 08/26/22 08/26/22 08/26/22 Range/Units 18:15 15:20 15:20 WBC (4.0-10.5) x10^3/uL RBC (4.1-5.4) x10^6/uL Hgb (12.0-16.0) g/dL Hct (35-47) % MCV (78-100) fL MCH (26-32) pg MCHC (32-36) g/dL RDW (11.5-14.0) % Plt Count (150-450) x10^3/uL MPV (7.5-11.0) fL Gran % (36.0-66.0) % Immature Gran % (Auto) (0.00-0.4) % Nucleat RBC Rel Count (0.00-0.1) % Eos # (Auto) (0-0.5) x10^3/uL Immature Gran # (Auto) (0.00-0.03) x10^3u/L Absolute Lymphs (auto) (1.0-4.6) x10^3/uL Absolute Monos (auto) (0.0-1.3) x10^3/uL Absolute Nucleated RBC (0.00-0.01) x10^3u/L Lymphocytes % (24.0-44.0) % Monocytes % (0.0-12.0) % Eosinophils % (0.00-5.0) % Basophils % (0.0-0.4) % Absolute Granulocytes (1.4-6.9) x10^3/uL Basophils # (0-0.4) x10^3/uL D-Dimer (0.0-0.50) mg/L Sodium (137-145) mmol/L Potassium (3.5-5.1) mmol/L Chloride (98-107) mmol/L Carbon Dioxide (22-30) mmol/L Anion Gap (5-15) MEQ/L BUN (7-17) mg/dL Creatinine (0.52-1.04) mg/dL Estimated GFR ML/MIN Glucose (74-106) mg/dL Calcium (8.4-10.2) mg/dL Total Bilirubin (0.2-1.3) mg/dL AST (14-36) U/L ALT (0-35) U/L Alkaline Phosphatase (38-126) U/L Troponin I < 0.012 < 0.012 (0.000-0.034) ng/mL NT-Pro-B Natriuret Pep (<300) pg/mL Serum Total Protein (6.3-8.2) g/dL Albumin (3.5-5.0) g/dL Urine HCG, Qual POSITIVE (NEGATIVE) 08/26/22 08/26/22 08/26/22 Range/Units 15:20 15:20 15:20 WBC 8.1 (4.0-10.5) x10^3/uL RBC 5.51 H (4.1-5.4) x10^6/uL Hgb 14.9 (12.0-16.0) g/dL Hct 45.2 (35-47) % MCV 82.0 (78-100) fL MCH 27.0 (26-32) pg MCHC 33.0 (32-36) g/dL RDW 12.0 (11.5-14.0) % Plt Count 294 (150-450) x10^3/uL MPV 8.7 (7.5-11.0) fL Gran % 77.5 H (36.0-66.0) % Immature Gran % (Auto) 0.1 (0.00-0.4) % Nucleat RBC Rel Count 0.0 (0.00-0.1) % Eos # (Auto) 0.02 (0-0.5) x10^3/uL Immature Gran # (Auto) 0.01 (0.00-0.03) x10^3u/L Absolute Lymphs (auto) 1.47 (1.0-4.6) x10^3/uL Absolute Monos (auto) 0.32 (0.0-1.3) x10^3/uL Absolute Nucleated RBC 0.00 (0.00-0.01) x10^3u/L Lymphocytes % 18.1 L (24.0-44.0) % Monocytes % 3.9 (0.0-12.0) % Eosinophils % 0.2 (0.00-5.0) % Basophils % 0.2 (0.0-0.4) % Absolute Granulocytes 6.27 (1.4-6.9) x10^3/uL Basophils # 0.02 (0-0.4) x10^3/uL D-Dimer < 0.19 (0.0-0.50) mg/L Sodium 138 (137-145) mmol/L Potassium 3.5 (3.5-5.1) mmol/L Chloride 104 (98-107) mmol/L Carbon Dioxide 21 L (22-30) mmol/L Anion Gap 17.4 H (5-15) MEQ/L BUN 5 L (7-17) mg/dL Creatinine 0.56 (0.52-1.04) mg/dL Estimated GFR > 60.0 ML/MIN Glucose 94 (74-106) mg/dL Calcium 9.2 (8.4-10.2) mg/dL Total Bilirubin 2.40 H (0.2-1.3) mg/dL AST 23 (14-36) U/L ALT 22 (0-35) U/L Alkaline Phosphatase 53 (38-126) U/L Troponin I (0.000-0.034) ng/mL NT-Pro-B Natriuret Pep 53.1 (<300) pg/mL Serum Total Protein 8.4 H (6.3-8.2) g/dL Albumin 4.8 (3.5-5.0) g/dL Urine HCG, Qual (NEGATIVE) - Progress Progress: improved Progress Note: Patient declined chest x-ray because of . Patient states she saw Dr. Duron during her last . However today's is a new diagnosis and she has yet to see Dr. duron 08/26/22 19:58 Patient is a 27-year-old female presents to our ED for evaluation of chest pre ssure. Tests includes CBC CMP which were both essentially nonremarkable EKG is normal sinus rhythm. Bilateral ultrasound lower extremity negative for DVT. D- dimer negative. hCG positive. BNP negative troponin negative. Patient feels well at this time. She is asymptomatic. Will discharge home. Patient agrees to follow-up with primary care doctor within 48 hours for reevaluation. Portions of this note were created with voice recognition technology. There may be grammatical, spelling, punctuation or sound alike errors Complexity of problem addressed is moderate acute complicated No critical care time Complexity of data reviewed and analyzed is moderate. Test ordered, test re viewed and analyzed. Clinical correlation made between findings and physical exam. In light of patient's past medical history negative physical exam and negative test results no indication for further work-up at this time. Will discharge home. Risk of complication and or risk of morbidity/mortality of patient management is low. No specific medications received. No prescriptions. No controlled medications. No consultations. Patient agrees to follow-up with primary care doctor within 48 hours for reevaluation. Plan of care established for shared decision making. No social determinants of health present to impede follow-up. Vital stable. Patient voices no other complaints or concerns at this time. Portions of this note were created with voice recognition technology. There may be grammatical, spelling, punctuation or sound alike errors 08/26/22 20:00 Counseled pt/family regarding: lab results, diagnosis, need for follow-up - Departure Departure Disposition: Home Clinical Impression: , Chest pressure, Total bilirubin, elevated Condition: Stable Critical Care Time: No Referrals: MAKAYLA ALVA MD [Primary Care Provider] - Follow up/PCP as directed Additional Instructions: Discharge/Care Plan ROSANNA BURNETT was seen on 08/26/22 in the Emergency Room. The patient was counseled regarding Diagnosis,Lab results, Imaging studies, need for follow up and when to return to the Emergency Room. Prescriptions given: Discharge Note I have spoken with the patient and/or caregivers. I have explained the patient's condition, diagnosis and treatment plan based on the information available to me at this time. I have answered the patient's and/or caregiver's questions and addressed any concerns. The patient and/or caregivers have as good understanding of the patient's diagnosis, condition and treatment plan as can be expected at this point. The vital signs have been stable. The patient's condition is stable and appropriate for discharge from the emergency department. The patient will pursue further outpatient evaluation with the primary care physician or other designated or consulting physician as outlined in the discharge instructions. The patient and/or caregivers are agreeable to this plan of care and follow-up instructions have been explained in detail. The patient and/or caregivers have received these instruction. The patient/and or caregivers are aware that any significant change in condition or worsening of symptoms should prompt an immediate return to this or the closest emergency department or call 911.
== END 2022-08-26 20:14 | disposition home or self-care (01) ==
LOC: ED 15:05
DX: R07.9 Chest pain, unspecified (principal); E80.6 Other disorders of bilirubin metabolism; Z33.1 Pregnant state, incidental; Z28.310 Unvaccinated for COVID-19; Z72.0 Tobacco use
CPT/HCPCS: 36000; 36415; 80053; 81025; 83880; 84484; 85025; 85379; 93005; 93041; 93970; 94760; 99284

== ENCOUNTER 2022-08-28 22:12 | Emergency (ER) | payer BC, MEDICAID ==
--- NOTE | 2022-08-28 22:25 | ERPHSYRPT ---
- History of Present Illness Time Seen by Provider: 08/28/22 22:25 Source: patient Exam Limitations: no limitations Physician History: 27-year-old female presents to emergency room with a 1 day history of vaginal bleeding. Patient was recently seen in the emergency room and was found to have a positive urine test at that time. She has not seen an OB provider s kelli that visit. Patient reports that she had vaginal bleeding that filled her underwear this afternoon and has had right lower quadrant abdominal pain since that time. She denies fevers, nausea, vomiting. Patient did report this is her third and has had 1 miscarriage and 1 threatened . She has 1 living child. Patient is very concerned that she is possibly having a miscarria ge again. Timing/Duration: today Activites at Onset: none Quality: sharpness, stabbing Onset Location: RLQ Pain Radiation: none Severity of Pain-Max: moderate Severity of Pain-Current: moderate Prior abdominal problems: none Sexual intercourse history: single partner Modifying Factors: Improves With: nothing Associated Symptoms: abdominal pain, , No fever, No chills, No nausea, No vomiting, No dysuria Allergies/Adverse Reactions: No Known Drug Allergies Allergy (Verified 08/28/22 22:36) STATES WAS ALLERGIC TO THREE DIFFERENT TYPES OF HEADACHE MEDICATIONS BUT DOESN'T KNOW WHAT THEY WERE, SAID IT WAS A LONG TIME AGO. Home Medications: Ferrous Sulfate 325 mg PO DAILY 08/28/22 [History] Hx Tetanus, Diphtheria Vaccination/Date Given: Yes Hx Influenza Vaccination/Date Given: Yes Hx Pneumococcal Vaccination/Date Given: No Travel Risk - Vaccine Status Have you recieved a Covid-19 vaccination: No - Review of Systems Constitutional: No Symptoms Eyes: No Symptoms Ears, Nose, & Throat: No Symptoms Respiratory: No Symptoms Cardiac: No Symptoms Abdominal/Gastrointestinal: Abdominal Pain, No Nausea, No Vomiting Genitourinary Symptoms: Vaginal Bleeding Musculoskeletal: No Symptoms Skin: No Symptoms Neurological: No Symptoms Psychological: No Symptoms Endocrine: No Symptoms Hematologic/Lymphatic: No Symptoms Immunological/Allergic: No Symptoms All Other Systems: Reviewed and Negative - Past Medical History Pertinent Past Medical History: No Neurological History: No Pertinent History ENT History: No Pertinent History Cardiac History: No Pertinent History Respiratory History: No Pertinent History Endocrine Medical History: No Pertinent History Musculoskeletal History: No Pertinent History GI Medical History: Gallbladder Disease History: No Pertinent History Psycho-Social History: No Pertinent History Female Reproductive Disorders: No Pertinent History Other Medical History: Gall stones. Gilbert's syndrome. Anemia - Past Surgical History Past Surgical History: No Neuro Surgical History: No Pertinent History Cardiac: No Pertinent History Respiratory: No Pertinent History Gastrointestinal: No Pertinent History Genitourinary: No Pertinent History Musculoskeletal: No Pertinent History Female Surgical History: No Pertinent History - Social History Smoking Status: Current every day smoker How long have you smoked: 2.5 yars Exposure to second hand smoke: Yes Drug Use: none Patient Lives Alone: No - Nursing Vital Signs Nursing Vital Signs: Initial Vital Signs Temperature 98.5 F 08/28/22 22:21 Pulse Rate 95 H 08/28/22 22:21 Respiratory Rate 16 08/28/22 22:21 Blood Pressure 112/77 08/28/22 22:21 O2 Sat by Pulse Oximetry 100 08/28/22 22:21 Pain Scale Pain Intensity 4 - Physical Exam General Appearance: no apparent distress Eye Exam: eyes nml inspection Ears, Nose, Throat Exam: normal ENT inspection Neck Exam: normal inspection Respiratory Exam: airway intact, No respiratory distress Cardiovascular Exam: regular rate/rhythm, capillary refill <2 sec Gastrointestinal/Abdomen Exam: soft, No tenderness, No guarding, No rebound Extremity Exam: normal inspection, No swelling, No tenderness Neurologic Exam: alert, oriented x 3, cooperative SpO2 Interpretation: normal SpO2: 100 O2 Delivery: Room Air - Course Nursing assessment & vital signs reviewed: Yes - Radiology Ultrasound Exam Other Ultrasound: tele radiology report, Other (transvaginal US showed intrauterine at 6 weeks, FHR 121, cervix closed, small subchorionic hematoma) Ordered Tests: Active Orders 24 hr Category Date Time Status OB TRANSVAGINAL [US] Stat Exams 08/28/22 22:31 Ordered CBC W DIFF Stat Lab 08/28/22 22:47 Completed CMP Stat Lab 08/28/22 22:47 Completed HCG, Quantitative (Inhouse) Stat Lab 08/28/22 22:47 Completed UA W/RFX UR CULTURE Stat Lab 08/28/22 22:34 Completed Lab/Rad Data: Laboratory Result Diagrams 08/28/22 22:47 08/28/22 22:47 Laboratory Results 08/28/22 08/28/22 08/28/22 Range/Units 22:47 22:47 22:47 WBC 8.1 (4.0-10.5) x10^3/uL RBC 4.55 (4.1-5.4) x10^6/uL Hgb 12.4 (12.0-16.0) g/dL Hct 38.0 (35-47) % MCV 83.5 (78-100) fL MCH 27.3 (26-32) pg MCHC 32.6 (32-36) g/dL RDW 12.0 (11.5-14.0) % Plt Count 231 (150-450) x10^3/uL MPV 8.8 (7.5-11.0) fL Gran % 68.3 H (36.0-66.0) % Immature Gran % (Auto) 0.2 (0.00-0.4) % Nucleat RBC Rel Count 0.0 (0.00-0.1) % Eos # (Auto) 0.02 (0-0.5) x10^3/uL Immature Gran # (Auto) 0.02 (0.00-0.03) x10^3u/L Absolute Lymphs (auto) 2.07 (1.0-4.6) x10^3/uL Absolute Monos (auto) 0.44 (0.0-1.3) x10^3/uL Absolute Nucleated RBC 0.00 (0.00-0.01) x10^3u/L Lymphocytes % 25.7 (24.0-44.0) % Monocytes % 5.5 (0.0-12.0) % Eosinophils % 0.2 (0.00-5.0) % Basophils % 0.1 (0.0-0.4) % Absolute Granulocytes 5.50 (1.4-6.9) x10^3/uL Basophils # 0.01 (0-0.4) x10^3/uL Sodium 138 (137-145) mmol/L Potassium 3.2 L (3.5-5.1) mmol/L Chloride 103 (98-107) mmol/L Carbon Dioxide 25 (22-30) mmol/L Anion Gap 13.7 (5-15) MEQ/L BUN 10 (7-17) mg/dL Creatinine 0.50 L (0.52-1.04) mg/dL Estimated GFR > 60.0 ML/MIN Glucose 101 (74-106) mg/dL Calcium 8.4 (8.4-10.2) mg/dL Total Bilirubin 1.20 (0.2-1.3) mg/dL AST 18 (14-36) U/L ALT 19 (0-35) U/L Alkaline Phosphatase 48 (38-126) U/L Serum Total Protein 7.1 (6.3-8.2) g/dL Albumin 4.1 (3.5-5.0) g/dL Beta HCG, Quant 06456 mIU/ml Urine Color (Yellow) Urine Appearance (Clear) Urine pH (4.6-8.0) Ur Specific Catarina (1.005-1.030) Urine Protein (Negative) Urine Glucose (UA) (Negative) mg/dL Urine Ketones (Negative) Urine Blood (Negative) Urine Nitrite (Negative) Urine Bilirubin (Negative) Urine Urobilinogen (0.2) mg/dL Ur Leukocyte Esterase (Negative) U Hyaline Cast (Auto) (0-2) /LPF Urine Microscopic RBC (0-5) /HPF Urine Microscopic WBC (0-5) /HPF Ur Epithelial Cells (None Seen) /HPF Urine Bacteria (None Seen) /HPF Urine Culture Reflexed (NO) ABO Group O Rh Factor POSITIVE Antibody Screen NEGATIVE (NEGATIVE) 08/28/22 Range/Units 22:34 WBC (4.0-10.5) x10^3/uL RBC (4.1-5.4) x10^6/uL Hgb (12.0-16.0) g/dL Hct (35-47) % MCV (78-100) fL MCH (26-32) pg MCHC (32-36) g/dL RDW (11.5-14.0) % Plt Count (150-450) x10^3/uL MPV (7.5-11.0) fL Gran % (36.0-66.0) % Immature Gran % (Auto) (0.00-0.4) % Nucleat RBC Rel Count (0.00-0.1) % Eos # (Auto) (0-0.5) x10^3/uL Immature Gran # (Auto) (0.00-0.03) x10^3u/L Absolute Lymphs (auto) (1.0-4.6) x10^3/uL Absolute Monos (auto) (0.0-1.3) x10^3/uL Absolute Nucleated RBC (0.00-0.01) x10^3u/L Lymphocytes % (24.0-44.0) % Monocytes % (0.0-12.0) % Eosinophils % (0.00-5.0) % Basophils % (0.0-0.4) % Absolute Granulocytes (1.4-6.9) x10^3/uL Basophils # (0-0.4) x10^3/uL Sodium (137-145) mmol/L Potassium (3.5-5.1) mmol/L Chloride (98-107) mmol/L Carbon Dioxide (22-30) mmol/L Anion Gap (5-15) MEQ/L BUN (7-17) mg/dL Creatinine (0.52-1.04) mg/dL Estimated GFR ML/MIN Glucose (74-106) mg/dL Calcium (8.4-10.2) mg/dL Total Bilirubin (0.2-1.3) mg/dL AST (14-36) U/L ALT (0-35) U/L Alkaline Phosphatase (38-126) U/L Serum Total Protein (6.3-8.2) g/dL Albumin (3.5-5.0) g/dL Beta HCG, Quant mIU/ml Urine Color Yellow (Yellow) Urine Appearance Clear (Clear) Urine pH 6.5 (4.6-8.0) Ur Specific Catarina 1.010 (1.005-1.030) Urine Protein Negative (Negative) Urine Glucose (UA) Negative (Negative) mg/dL Urine Ketones Negative (Negative) Urine Blood Moderate A (Negative) Urine Nitrite Negative (Negative) Urine Bilirubin Negative (Negative) Urine Urobilinogen 1.0 A (0.2) mg/dL Ur Leukocyte Esterase Negative (Negative) U Hyaline Cast (Auto) NONE SEEN (0-2) /LPF Urine Microscopic RBC 0-2 (0-5) /HPF Urine Microscopic WBC 0-2 (0-5) /HPF Ur Epithelial Cells None Seen (None Seen) /HPF Urine Bacteria None Seen (None Seen) /HPF Urine Culture Reflexed NO (NO) ABO Group Rh Factor Antibody Screen (NEGATIVE) - Progress Progress: improved Air Movement: good Progress Note: Quantitative hCG resulted at 35,148 which is in range with her potential dates. Hb in acceptable range. Rh status pending. 08/29/22 00:02 Vaginal ultrasound performed there is a single live intrauterine estimated at 6 weeks of age. Cervix is closed. heart rate was 121. There was a small subchorionic hematoma that was appreciated on exam. Blood Culture(s) Obtained: No Antibiotics given: No Counseled pt/family regarding: lab results, diagnosis, need for follow-up, rad results Medical Desision Making - Diagnostic Testing Diagnostic test were ordered, analyzed, and reviewed by me: Yes Radiological Interpretation: Interpreted by me, Reviewed by me, Teleradiologist Report - Risk of complications Low Risk: Low risk of morbidity from additional dx testing or treatment - Departure Departure Disposition: Home Clinical Impression: Subchorionic hematoma in first trimester, Bleeding in early Condition: Good Critical Care Time: No Referrals: DMITRY COSTA DO [ACTIVE STAFF] - Follow up/PCP as directed Instructions: How to Adapt to Physical Changes During
[2022-08-28 22:49] LABS: BASOPHIL % 0.1 % (0.0-0.4); Basophil (Absolute #) 0.01 x10^3/uL (0-0.4); Eosinophil % 0.2 % (0.00-5.0); Eosinophil (Absolute #) 0.02 x10^3/uL (0-0.5); Hemoglobin 12.4 g/dL (12.0-16.0); IMMATURE GRAN # 0.02 x10^3u/L (0.00-0.03); IMMATURE GRAN % 0.2 % (0.00-0.4); Lymphocyte (Absolute #) 2.07 x10^3/uL (1.0-4.6); Lymphocytes % 25.7 % (24.0-44.0); Mean Cell Volume 83.5 fL (78-100); Mean Corpuscular Hemoglobin 27.3 pg (26-32); Mean Corpuscular Hgb Concent. 32.6 g/dL (32-36); Mean Platelet Volume 8.8 fL (7.5-11.0); Monocyte (Absolute #) 0.44 x10^3/uL (0.0-1.3); Monocytes % 5.5 % (0.0-12.0); Neutrophil % 68.3 % (36.0-66.0); Platelet Count 231 x10^3/uL (150-450); Red Blood Count 4.55 x10^6/uL (4.1-5.4); White Blood Count 8.1 x10^3/uL (4.0-10.5)
[2022-08-28 23:12] LABS: ADD URINE CULTURE? NO (NO); Appearance Clear (Clear); Bacteria None Seen /HPF (None Seen); Bilirubin Negative (Negative); Blood Moderate (Negative); Epithelial Cells None Seen /HPF (None Seen); Glucose, Urine Negative (Negative); Hyaline Casts NONE SEEN /LPF (0-2); Ketones Negative (Negative); Leukocyte Esterase Negative (Negative); Nitrite Negative (Negative); Ph 6.5 (4.6-8.0); Protein,Urine Dip Negative (Negative); RBC 0-2 /HPF (0-5); WBC 0-2 /HPF (0-5)
[2022-08-28 23:18] LABS: ALBUMIN 4.1 g/dL (3.5-5.0); ALKALINE PHOSPHATASE 48 U/L (38-126); ANION GAP 13.7 MEQ/L (5-15); BLOOD UREA NITROGEN 10 mg/dL (7-17); CHLORIDE 103 mmol/L (98-107); Calcium 8.4 mg/dL (8.4-10.2); Carbon Dioxide 25 mmol/L (22-30); EST GLOMERULAR FILTRATION RATE > 60.0 ML/MIN; Glucose 101 mg/dL (74-106); Potassium 3.2 mmol/L (3.5-5.1); SGOT/AST 18 U/L (14-36); SGPT/ALT 19 U/L (0-35); SODIUM 138 mmol/L (137-145); Total Protein 7.1 g/dL (6.3-8.2)
[2022-08-28 23:27] LABS: ABO TYPING O; Antibody Screen NEGATIVE (NEGATIVE); RH TYPING POSITIVE
[2022-08-28 23:43] LABS: HCG, Quantitative (Inhouse) 35148 mIU/ml
[2022-08-28 23:58] VITALS: O2SAT 100
[2022-08-29 00:15] VITALS: BP 112/74; PULSE 75
--- NOTE | 2022-08-29 07:01 | XRAY ---
Indication: Pain and leading. Positive . Two-dimensional transvaginal early OB ultrasound performed. Comparison: None Uterus demonstrates single intrauterine gestational sac, pole, and yolk sac. Mean crown-rump length measures 0.64 cm corresponding to 6 weeks 3 days. heart rate 121 BPM. Tiny curvilinear subchorionic hemorrhage. Lower uterine segment demonstrates incidental 4 mm nabothian cyst. Left and right ovaries are sonographically unremarkable. Tiny cul-de-sac fluid. No suspicious adnexal mass. Impression: Single viable intrauterine measuring 6 weeks 3 days. Expected date confinement is April 20, 2023. Tiny subchorionic hemorrhage. Comment: Preliminary report was given.
== END 2022-08-29 00:19 | disposition home or self-care (01) ==
LOC: ED 22:12
DX: O43.891 Other placental disorders, first trimester (principal); O20.9 Hemorrhage in early pregnancy, unspecified; Z3A.01 Less than 8 weeks gestation of pregnancy; R10.31 Right lower quadrant pain; Z28.310 Unvaccinated for COVID-19; Z72.0 Tobacco use
CPT/HCPCS: 36415; 76817; 80053; 81001; 84702; 85025; 86850; 86900; 86901; 99283

== ENCOUNTER 2023-04-08 03:27 | Inpatient (IN) | payer BC, MEDICAID ==
[2023-04-08 03:54] LABS: Appearance Clear (Clear); Bacteria None Seen /HPF (None Seen); Bilirubin Negative (Negative); Blood Negative (Negative); Epithelial Cells None Seen /HPF (None Seen); Glucose, Urine Negative (Negative); Hyaline Casts NONE SEEN /LPF (0-2); Ketones Negative (Negative); Leukocyte Esterase Negative (Negative); Nitrite Negative (Negative); Protein,Urine Dip Negative (Negative); RBC 0-2 /HPF (0-5); WBC 0-2 /HPF (0-5)
[2023-04-08 03:55] LABS: ADD URINE CULTURE? NO (NO)
[2023-04-08 04:05] LABS: AMNISURE TEST RESULTS POSITIVE (NEGATIVE)
[2023-04-08 04:05] LABS: Amphetamine,Urine NEGATIVE (NEGATIVE); Barbiturate,Urine NEGATIVE (NEGATIVE); Benzodiazepine,Urine NEGATIVE (NEGATIVE); Cocaine,Urine NEGATIVE (NEGATIVE); Methadone,Urine NEGATIVE (NEGATIVE); Opiate,Urine NEGATIVE (NEGATIVE); PCP,Urine NEGATIVE (NEGATIVE); THC,Urine POSITIVE (NEGATIVE)
[2023-04-08] MEDS ORDERED: XYLOCAINE 1% HCL 20 ML MDV IJ PRN (04:08)
[2023-04-08] MEDS ORDERED: BRETHINE 1 MG/ML SQ PRN (04:12)
[2023-04-08 05:30] LABS: Absolute Neutrophil Ct (ANC) 4.73 x10^3/uL (1.4-6.9); BASOPHIL % 0.1 % (0.0-0.4); Basophil (Absolute #) 0.01 x10^3/uL (0-0.4); Eosinophil % 0.6 % (0.00-5.0); Eosinophil (Absolute #) 0.04 x10^3/uL (0-0.5); Hematocrit 37.3 % (35-47); Hemoglobin 12.1 g/dL (12.0-16.0); IMMATURE GRAN # 0.06 x10^3u/L (0.00-0.03); IMMATURE GRAN % 0.9 % (0.00-0.4); Lymphocyte (Absolute #) 1.65 x10^3/uL (1.0-4.6); Lymphocytes % 23.5 % (24.0-44.0); Mean Cell Volume 81.6 fL (78-100); Mean Corpuscular Hemoglobin 26.5 pg (26-32); Mean Corpuscular Hgb Concent. 32.4 g/dL (32-36); Mean Platelet Volume 9.5 fL (7.5-11.0); Monocyte (Absolute #) 0.52 x10^3/uL (0.0-1.3); Monocytes % 7.4 % (0.0-12.0); Neutrophil % 67.5 % (36.0-66.0); Platelet Count 238 x10^3/uL (150-450); Red Blood Count 4.57 x10^6/uL (4.1-5.4); Red Cell Distribution Width 12.3 % (11.5-14.0)
[2023-04-08] MEDS: PITOCIN 30 UNITS/ LR 500 ML 30 UNITS/500 ML PLAST..BAG IV SCH (05:44)
[2023-04-08] MEDS: Lactated Ringers 1,000 ML IV SCH (05:45)
[2023-04-08 06:15] LABS: ABO TYPING O; Antibody Screen NEGATIVE (NEGATIVE); RH TYPING POSITIVE
[2023-04-08] MEDS: FENTANYL 2 MCG-BUPIV 0.125%-NS 250 ML Epidur 250 ML EPIDURAL SCH (07:32)
[2023-04-08] MEDS: Lactated Ringers 1,000 ML IV ONE (07:32)
[2023-04-08] MEDS: Zofran 4 MG/2 ML VIAL IV PRN (07:43)
[2023-04-08] MEDS ORDERED: Ephedrine Sulfate 50 MG/ML IV PRN (08:00)
[2023-04-08] MEDS ORDERED: NORCO 5/325 MG PO PRN (10:00)
[2023-04-08] MEDS ORDERED: Anucort-HC SUPPOSITORY PR PRN (10:00)
[2023-04-08] MEDS ORDERED: PITOCIN 30 UNITS/ LR 500 ML 30 UNITS/500 ML PLAST..BAG IV SCH (10:00)
[2023-04-08] MEDS ORDERED: CORTISONE 1% CREAM TP PRN (10:00)
[2023-04-08] MEDS: Dermoplast Spray TP PRN (10:03)
[2023-04-08] MEDS: TUCKS TP PRN (10:05)
[2023-04-08] MEDS: LANSINOH 40 GM TOP PRN (10:05)
[2023-04-08] MEDS ORDERED: Sensorcaine 0.25% 10 ML ONE (12:47)
[2023-04-08] MEDS: MOTRIN 400 MG PO PRN (22:06)
[2023-04-08] MEDS: Docusate Sodium 100 MG PO SCH (22:06)
[2023-04-09] MEDS: FERREX 150 PO SCH (04:52)
[2023-04-09 05:46] LABS: Absolute Neutrophil Ct (ANC) 5.25 x10^3/uL (1.4-6.9); BASOPHIL % 0.2 % (0.0-0.4); Basophil (Absolute #) 0.02 x10^3/uL (0-0.4); Eosinophil % 0.6 % (0.00-5.0); Eosinophil (Absolute #) 0.05 x10^3/uL (0-0.5); Hematocrit 34.6 % (35-47); Hemoglobin 11.1 g/dL (12.0-16.0); IMMATURE GRAN # 0.04 x10^3u/L (0.00-0.03); IMMATURE GRAN % 0.5 % (0.00-0.4); Lymphocyte (Absolute #) 2.06 x10^3/uL (1.0-4.6); Lymphocytes % 25.7 % (24.0-44.0); Mean Cell Volume 82.8 fL (78-100); Mean Corpuscular Hemoglobin 26.6 pg (26-32); Mean Corpuscular Hgb Concent. 32.1 g/dL (32-36); Mean Platelet Volume 8.9 fL (7.5-11.0); Monocyte (Absolute #) 0.59 x10^3/uL (0.0-1.3); Monocytes % 7.4 % (0.0-12.0); Neutrophil % 65.6 % (36.0-66.0); Platelet Count 208 x10^3/uL (150-450); Red Blood Count 4.18 x10^6/uL (4.1-5.4); Red Cell Distribution Width 12.6 % (11.5-14.0)
[2023-04-10] MEDS: TYLENOL EXTRA STRENGTH 500 MG PO PRN (02:00)
[2023-04-10 02:11] VITALS: O2SAT 99
[2023-04-10 08:30] VITALS: BP 117/68; PULSE 69; RESP 14; TEMP 97.8
--- NOTE | 2023-04-10 09:51 | PCM.DS ---
Discharge Summary Date of Admission: 04/08/23 03:27 Admitting Physician: KENNY CARRASCO Consults: Consults on Case 04/08/23 09:00 Notify Anesthesia Provider PRN 04/08/23 16:23 Navigation ONCE Primary Care Provider: MAKAYLA ALVA Allergies Allergies No Known Drug Allergies Allergy (Verified 08/28/22 22:36) STATES WAS ALLERGIC TO THREE DIFFERENT TYPES OF HEADACHE MEDICATIONS BUT DOESN'T KNOW WHAT THEY WERE, SAID IT WAS A LONG TIME AGO. Hospital Summary - Hospital Course Hospital Course: patient arrived in spontaneous labor, SROM at 38wks. uncomplicated vaginal delivery, doing great . mild lochia, pain is minimal. she is . - Vitals & Intake/Output Vital Signs: Vital Signs Temperature 97.8 F 04/10/23 08:00 Pulse Rate 69 04/10/23 08:00 Respiratory Rate 14 04/10/23 08:00 Blood Pressure 117/68 04/10/23 08:00 O2 Sat by Pulse Oximetry 99 04/10/23 08:00 Intake & Output: Intake & Output 04/07/23 04/08/23 04/09/23 04/10/23 11:59 11:59 11:59 11:59 Intake Total 1000 1100 Output Total 500 Balance 500 1100 Weight 87.543 kg - Lab Result Diagrams: 04/09/23 05:40 Micro Results-Entire Visit: Microbiology 04/08/23 10:00 Urine Culture - Preliminary Catherized NO GROWTH TO DATE - Procedures and Test Procedures and Tests throughout Hospitalization: Therapy Orders & Screens 04/08/23 04:58 Smoking Cessation Education ONCE Comment: Diagnosis: Spontaneous ROM Smoking Status: Current every day smoker How long have you smoked: 4 Have you smoked in the past 12 months: Yes Approximately how many cigarettes per day: 4 Do you dip or chew tobacco: No Discharge Exam General Appearance: no apparent distress Neurologic Exam: alert, oriented x 3 Respiratory Exam: normal breath sounds Cardiovascular Exam: regular rate/rhythm, normal heart sounds Gastrointestinal/Abdomen Exam: soft, No tenderness, No mass Extremity Exam: normal inspection, normal range of motion Skin Exam: normal color, warm, dry Final Diagnosis/Problem List - Final Discharge Diagnosis/Problem (1) Spontaneous vaginal delivery Current Visit: No Status: Acute Code(s): O80 - ENCOUNTER FOR FULL-TERM UNCOMPLICATED DELIVERY - Discharge Disposition: Home, Self-Care Condition: Stable Prescriptions: Continue Pnv No.103/Folic/Om3s/Fish Oil [ Gummies] 1 tab PO DAILY Follow up with: KENNY CARRASCO MD [ACTIVE STAFF] - 6 weeks
[2023-04-10] MEDS: Adacel Vial IM ONE (09:56)
== END 2023-04-10 16:05 | disposition home or self-care (01) | DRG 807 ==
LOC: OB 03:27
PROVIDERS: ADMIT Family Medicine; ATTEND Family Medicine
PROC: 10E0XZZ Delivery of Products of Conception, External Approach (ICD-10-PCS; principal; 2023-04-08)
DX: O80 Encounter for full-term uncomplicated delivery (principal); Z37.0 Single live birth; Z3A.38 38 weeks gestation of pregnancy; Z20.828 Contact with and (suspected) exposure to other viral communicable diseases
CPT/HCPCS: 36415; 80307; 81001; 84112; 85025; 86850; 86900; 86901; 87086; 90715; 96372; J2405; J2590; A9270-GY

== ENCOUNTER 2023-08-24 11:39 | Emergency (ER) | payer MEDICAID ==
--- NOTE | 2023-08-24 11:41 | ERPHSYRPT ---
- History of Present Illness Time Seen by Provider: 08/24/23 11:41 Historian: patient Exam Limitations: no limitations Physician History: This is a 28-year-old white female patient of Dr. Alva and client analyst Dr. Duron who states she is approximately 6 weeks and last menstrual period was 07/10/2023 presents with intractable vomiting and dry heaves for the last 1- 1/2 to 2 days. She is also having diarrhea. She denies cough. She denies fever. She denies vaginal bleeding. She denies abdominal pain. She denies vaginal cramping. At first, patient felt she might be having morning sickness. However, she states her symptoms are much worse and different than her morning sickness symptoms. Patient is currently not on any antiemetics but her primary care provider did call and Zofran but she has not picked that up yet. Patient does not have shortness of breath or chest pain. Timing/Duration: day(s) (2) Activities at Onset: none Abdominal Pain Onset Location: other Severity of Pain-Max: none Severity of Pain-Current: none (Abdominal pain) Modifying Factors: Improves With: vomiting Associated Symptoms: diarrhea, loss of appetite, nausea, vomiting, weakness Previous symptoms: no prior history, no recent treatment Allergies/Adverse Reactions: No Known Drug Allergies Allergy (Verified 08/24/23 11:48) STATES WAS ALLERGIC TO THREE DIFFERENT TYPES OF HEADACHE MEDICATIONS BUT DOESN'T KNOW WHAT THEY WERE, SAID IT WAS A LONG TIME AGO. Home Medications: Pnv No.103/Folic/Om3s/Fish Oil [ Gummies] 1 tab PO DAILY 04/08/23 [History] Hx Tetanus, Diphtheria Vaccination/Date Given: Yes Hx Influenza Vaccination/Date Given: Yes Hx Pneumococcal Vaccination/Date Given: No Travel Risk - International Travel Have you traveled outside of the country in past 3 weeks: No - Emerging Infectious Disease Are you exhibiting symptoms associated with any current EIDs: Yes Symptoms: Diarrhea, Vomitting - Review of Systems Constitutional: Weakness Eyes: No Symptoms, Foreign Body Sensation Respiratory: No Symptoms Cardiac: No Symptoms Abdominal/Gastrointestinal: Nausea, Vomiting, Diarrhea, Appetite Changes Genitourinary Symptoms: No Symptoms Musculoskeletal: No Symptoms Skin: No Symptoms Neurological: No Symptoms Psychological: No Symptoms Endocrine: No Symptoms Hematologic/Lymphatic: No Symptoms Immunological/Allergic: No Symptoms All Other Systems: Reviewed and Negative - Past Medical History Pertinent Past Medical History: No Neurological History: No Pertinent History ENT History: No Pertinent History Cardiac History: No Pertinent History Respiratory History: No Pertinent History Endocrine Medical History: No Pertinent History Musculoskeletal History: No Pertinent History GI Medical History: Gallbladder Disease History: No Pertinent History Psycho-Social History: No Pertinent History Female Reproductive Disorders: No Pertinent History Other Medical History: Hx Gall stones. Gilbert's syndrome. Anemia - Past Surgical History Past Surgical History: No Neuro Surgical History: No Pertinent History Cardiac: No Pertinent History Respiratory: No Pertinent History Gastrointestinal: Cholecystectomy Genitourinary: No Pertinent History Musculoskeletal: No Pertinent History Female Surgical History: No Pertinent History - Social History Smoking Status: Current every day smoker How long have you smoked: 4 Exposure to second hand smoke: No Drug Use: none Patient Lives Alone: No - Social Determinants of Health Will the patient participate in the screening: Yes Do you worry about a steady place to live?: No In the past 12 months,have you had to go without utilities?: No Transportation Issues: No Has anyone in your support network made you feel unsafe?: No Have you or anyone in your house had to go without enough: No - Nursing Vital Signs Nursing Vital Signs: Initial Vital Signs Blood Pressure 99/76 08/24/23 11:52 O2 Sat by Pulse Oximetry 96 08/24/23 11:52 Pain Scale Pain Intensity 0 - Physical Exam General Appearance: no apparent distress, alert, anxiety Eye Exam: PERRL/EOMI, eyes nml inspection Ears, Nose, Throat Exam: normal ENT inspection, moist mucous membranes Neck Exam: normal inspection, non-tender, supple, full range of motion Respiratory Exam: normal breath sounds, lungs clear, airway intact, No chest tenderness, No respiratory distress Cardiovascular Exam: regular rate/rhythm, normal heart sounds, normal peripheral pulses Gastrointestinal/Abdomen Exam: soft, normal bowel sounds, No tenderness Pelvic Exam: not done Rectal Exam: not done Back Exam: normal inspection, normal range of motion, No CVA tenderness, No vertebral tenderness Extremity Exam: normal inspection, normal range of motion, pelvis stable Neurologic Exam: alert, oriented x 3, 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, 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, normal mood/affect, nml cerebellar function, nml station & gait, sensation nml Skin Exam: normal color, warm, dry Lymphatic Exam: No adenopathy SpO2 Interpretation: normal O2 Delivery: Room Air - Course Nursing assessment & vital signs reviewed: Yes Ordered Tests: Active Orders 24 hr Category Date Time Status IV Insertion STAT Care 08/24/23 12:01 Active AMYLASE Stat Lab 08/24/23 12:01 Completed BLOOD CULTURE Stat Lab 08/24/23 12:37 Received CBC W DIFF Stat Lab 08/24/23 12:01 Completed CMP Stat Lab 08/24/23 12:01 Completed LIPASE Stat Lab 08/24/23 12:01 Completed Lactic Acid Stat Lab 08/24/23 12:01 Completed MONO SCREEN Stat Lab 08/24/23 12:37 Completed UA W/RFX UR CULTURE Stat Lab 08/24/23 13:57 Completed Medication Summary Discontinued Medications Generic Name Dose Route Start Last Admin Trade Name Freq PRN Reason Stop Dose Admin Sodium Chloride 1,000 mls @ 999 mls/hr 08/24/23 12:01 08/24/23 14:32 Sodium Chloride 0.9% 1000 Ml IV 08/24/23 13:01 Infused .Q1H1M STA Infusion Sodium Chloride Confirm 08/24/23 12:18 Sodium Chloride 0.9% 1000 Ml Administered 08/24/23 12:19 Dose 1,000 mls @ ud .ROUTE .STK-MED ONE Ondansetron HCl 4 mg 08/24/23 12:01 08/24/23 12:22 Ondansetron Hcl 4 Mg/2 Ml Vial IV 08/24/23 12:02 4 mg STAT ONE Administration Ondansetron HCl Confirm 08/24/23 12:18 Ondansetron Hcl 4 Mg/2 Ml Vial Administered 08/24/23 12:19 Dose 4 mg .ROUTE .STK-MED ONE Ondansetron HCl 4 mg 08/24/23 12:46 08/24/23 13:04 Ondansetron Hcl 4 Mg/2 Ml Vial IV 08/24/23 12:47 4 mg STAT ONE Administration Ondansetron HCl Confirm 08/24/23 12:53 Ondansetron Hcl 4 Mg/2 Ml Vial Administered 08/24/23 12:54 Dose 4 mg .ROUTE .STK-MED ONE Lab/Rad Data: Laboratory Result Diagrams 08/24/23 12:01 08/24/23 12:30 Laboratory Results 08/24/23 08/24/23 08/24/23 Range/Units 13:57 12:37 12:30 WBC (3.98-10.04) x10^3/uL RBC (3.93-5.22) x10^6/uL Hgb (11.2-15.7) g/dL Hct (34.1-44.9) % MCV (79.4-94.8) fL MCH (25.6-32.2) pg MCHC (32.2-35.5) g/dL RDW (11.7-14.4) % Plt Count (182-369) x10^3/uL MPV (9.4-12.3) fL Gran % (34.0-71.1) % Immature Gran % (Auto) (0.001-0.429) % Nucleat RBC Rel Count (0.00-0.2) % Eos # (Auto) (0.04-0.36) x10^3/uL Immature Gran # (Auto) (0.001-0.031) x10^3u/L Absolute Lymphs (auto) (1.18-3.74) x10^3/uL Absolute Monos (auto) (0.24-0.86) x10^3/uL Absolute Nucleated RBC (0.00-0.012) x10^3u/L Lymphocytes % (19.3-51.7) % Monocytes % (4.7-12.5) % Eosinophils % (0.7-5.8) % Basophils % (0.1-1.2) % Absolute Granulocytes (1.56-6.13) x10^3/uL Basophils # (0.01-0.08) x10^3/uL Sodium (135-145) mmol/L Sodium Direct 139 (138-146) mmol/L Potassium 3.5 (3.5-5.1) mmol/L Chloride 104 (98-107) mmol/L Carbon Dioxide 22 L (22-30) mmol/L Anion Gap (5-15) MEQ/L BUN (7-17) mg/dL Venous BUN 4 L (8-26) mg/dL Creatinine 0.5 L (0.52-1.04) mg/dL Estimated GFR ML/MIN Glucose 105 (74-106) mg/dL Lactic Acid (0.4-2.0) Calcium (8.4-10.2) mg/dL Ionized Calcium 1.17 (1.12-1.32) mmol/L Total Bilirubin (0.2-1.3) mg/dL AST (14-36) U/L ALT (0-35) U/L Alkaline Phosphatase (38-126) U/L Serum Total Protein (6.3-8.2) g/dL Albumin (3.5-5.0) g/dL Amylase (30-110) U/L Lipase (23-300) U/L Urine Color Yellow (Yellow) Urine Appearance Clear (Clear) Urine pH 6.0 (4.6-8.0) Ur Specific Hundred 1.020 (1.005-1.030) Urine Protein Negative (Negative) Urine Glucose (UA) Negative (Negative) mg/dL Urine Ketones 40 A (Negative) Urine Blood Negative (Negative) Urine Nitrite Negative (Negative) Urine Bilirubin Negative (Negative) Urine Urobilinogen 0.2 (0.2) mg/dL Ur Leukocyte Esterase Trace A (Negative) U Hyaline Cast (Auto) NONE SEEN (0-2) /LPF Urine Microscopic RBC 0-2 (0-5) /HPF Urine Microscopic WBC 0-2 (0-5) /HPF Ur Epithelial Cells Few (None Seen) /HPF Urine Bacteria None Seen (None Seen) /HPF Urine Culture Reflexed NO (NO) Monoscreen WEAKLY POSITIVE A Influenza Type A Ag (NEGATIVE) Influenza Type B Ag (NEGATIVE) RSV (PCR) (NEGATIVE) SARS-CoV-2 (PCR) (NEGATIVE) Group A Strep Antibody (NEGATIVE) 08/24/23 08/24/23 08/24/23 Range/Units 12:23 12:23 12:01 WBC (3.98-10.04) x10^3/uL RBC (3.93-5.22) x10^6/uL Hgb (11.2-15.7) g/dL Hct (34.1-44.9) % MCV (79.4-94.8) fL MCH (25.6-32.2) pg MCHC (32.2-35.5) g/dL RDW (11.7-14.4) % Plt Count (182-369) x10^3/uL MPV (9.4-12.3) fL Gran % (34.0-71.1) % Immature Gran % (Auto) (0.001-0.429) % Nucleat RBC Rel Count (0.00-0.2) % Eos # (Auto) (0.04-0.36) x10^3/uL Immature Gran # (Auto) (0.001-0.031) x10^3u/L Absolute Lymphs (auto) (1.18-3.74) x10^3/uL Absolute Monos (auto) (0.24-0.86) x10^3/uL Absolute Nucleated RBC (0.00-0.012) x10^3u/L Lymphocytes % (19.3-51.7) % Monocytes % (4.7-12.5) % Eosinophils % (0.7-5.8) % Basophils % (0.1-1.2) % Absolute Granulocytes (1.56-6.13) x10^3/uL Basophils # (0.01-0.08) x10^3/uL Sodium (135-145) mmol/L Sodium Direct (138-146) mmol/L Potassium (3.5-5.1) mmol/L Chloride (98-107) mmol/L Carbon Dioxide (22-30) mmol/L Anion Gap (5-15) MEQ/L BUN (7-17) mg/dL Venous BUN (8-26) mg/dL Creatinine (0.52-1.04) mg/dL Estimated GFR ML/MIN Glucose (74-106) mg/dL Lactic Acid (0.4-2.0) Calcium (8.4-10.2) mg/dL Ionized Calcium (1.12-1.32) mmol/L Total Bilirubin (0.2-1.3) mg/dL AST (14-36) U/L ALT (0-35) U/L Alkaline Phosphatase (38-126) U/L Serum Total Protein (6.3-8.2) g/dL Albumin (3.5-5.0) g/dL Amylase (30-110) U/L Lipase (23-300) U/L Urine Color (Yellow) Urine Appearance (Clear) Urine pH (4.6-8.0) Ur Specific Hundred (1.005-1.030) Urine Protein (Negative) Urine Glucose (UA) (Negative) mg/dL Urine Ketones (Negative) Urine Blood (Negative) Urine Nitrite (Negative) Urine Bilirubin (Negative) Urine Urobilinogen (0.2) mg/dL Ur Leukocyte Esterase (Negative) U Hyaline Cast (Auto) (0-2) /LPF Urine Microscopic RBC (0-5) /HPF Urine Microscopic WBC (0-5) /HPF Ur Epithelial Cells (None Seen) /HPF Urine Bacteria (None Seen) /HPF Urine Culture Reflexed (NO) Monoscreen Cancelled Influenza Type A Ag NEGATIVE (NEGATIVE) Influenza Type B Ag NEGATIVE (NEGATIVE) RSV (PCR) NEGATIVE (NEGATIVE) SARS-CoV-2 (PCR) NEGATIVE (NEGATIVE) Group A Strep Antibody NOT DETECTED (NEGATIVE) 08/24/23 08/24/23 08/24/23 Range/Units 12:01 12:01 12:01 WBC 6.3 (3.98-10.04) x10^3/uL RBC 5.39 H (3.93-5.22) x10^6/uL Hgb 14.2 (11.2-15.7) g/dL Hct 43.7 (34.1-44.9) % MCV 81.1 (79.4-94.8) fL MCH 26.3 (25.6-32.2) pg MCHC 32.5 (32.2-35.5) g/dL RDW 12.1 (11.7-14.4) % Plt Count 287 (182-369) x10^3/uL MPV 8.8 L (9.4-12.3) fL Gran % 73.1 H (34.0-71.1) % Immature Gran % (Auto) 0.2 (0.001-0.429) % Nucleat RBC Rel Count 0.0 (0.00-0.2) % Eos # (Auto) 0.01 L (0.04-0.36) x10^3/uL Immature Gran # (Auto) 0.01 (0.001-0.031) x10^3u/L Absolute Lymphs (auto) 1.28 (1.18-3.74) x10^3/uL Absolute Monos (auto) 0.38 (0.24-0.86) x10^3/uL Absolute Nucleated RBC 0.00 (0.00-0.012) x10^3u/L Lymphocytes % 20.3 (19.3-51.7) % Monocytes % 6.0 (4.7-12.5) % Eosinophils % 0.2 L (0.7-5.8) % Basophils % 0.2 (0.1-1.2) % Absolute Granulocytes 4.62 (1.56-6.13) x10^3/uL Basophils # 0.01 (0.01-0.08) x10^3/uL Sodium 140 (135-145) mmol/L Sodium Direct (138-146) mmol/L Potassium 3.6 (3.5-5.1) mmol/L Chloride 107 (98-107) mmol/L Carbon Dioxide 23 (22-30) mmol/L Anion Gap 12.9 (5-15) MEQ/L BUN 5 L (7-17) mg/dL Venous BUN (8-26) mg/dL Creatinine 0.49 L (0.52-1.04) mg/dL Estimated GFR 133.2 ML/MIN Glucose 108 H (74-106) mg/dL Lactic Acid 0.9 (0.4-2.0) Calcium 9.4 (8.4-10.2) mg/dL Ionized Calcium (1.12-1.32) mmol/L Total Bilirubin 1.50 H (0.2-1.3) mg/dL AST 26 (14-36) U/L ALT 19 (0-35) U/L Alkaline Phosphatase 58 (38-126) U/L Serum Total Protein 7.6 (6.3-8.2) g/dL Albumin 4.5 (3.5-5.0) g/dL Amylase 73 (30-110) U/L Lipase 36 (23-300) U/L Urine Color (Yellow) Urine Appearance (Clear) Urine pH (4.6-8.0) Ur Specific Hundred (1.005-1.030) Urine Protein (Negative) Urine Glucose (UA) (Negative) mg/dL Urine Ketones (Negative) Urine Blood (Negative) Urine Nitrite (Negative) Urine Bilirubin (Negative) Urine Urobilinogen (0.2) mg/dL Ur Leukocyte Esterase (Negative) U Hyaline Cast (Auto) (0-2) /LPF Urine Microscopic RBC (0-5) /HPF Urine Microscopic WBC (0-5) /HPF Ur Epithelial Cells (None Seen) /HPF Urine Bacteria (None Seen) /HPF Urine Culture Reflexed (NO) Monoscreen Influenza Type A Ag (NEGATIVE) Influenza Type B Ag (NEGATIVE) RSV (PCR) (NEGATIVE) SARS-CoV-2 (PCR) (NEGATIVE) Group A Strep Antibody (NEGATIVE) - Progress Progress: improved, re-examined Progress Note: 08/24/23 12:57 My medical decision making and the assignment of moderate complexity to this patient's medical issue today is based on review of the patient's past medical history, review of the patient's medication list, review patient drug allergy list, history present illness and physical findings on examination. The workup in this patient includes placement of intravenous line, infusion of normal saline solution, infusion of Zofran, urinalysis, CBC, CMP, amylase, lipase. In addition, we are ordering monotest, viral swabs and group A strep swabs. Differential diagnosis includes but is not limited to viral illness, dehydration, urinary tract infection, electrolyte abnormalities, emesis of , pancreatitis 08/24/23 14:47 I interpreted the patient's laboratory data results. Patient does have evidence of dehydration. She does test positive for mononucleosis. No other emergent medical issues on today's laboratory data results Counseled pt/family regarding: lab results, diagnosis, need for follow-up Medical Desision Making - Diagnostic Testing Diagnostic test were ordered, analyzed, and reviewed by me: Yes - Risk of complications Low Risk: Low risk of morbidity from additional dx testing or treatment - Departure Departure Disposition: Home Clinical Impression: Vomiting and diarrhea, Mononucleosis Condition: Stable Critical Care Time: No Referrals: MAKAYLA ALVA MD [Primary Care Provider] - Follow up/PCP as directed Additional Instructions: Drink plenty of clear liquids before advancing your diet. Use Tylenol for pain and fever control. Fill your Zofran prescription that you have waiting for you in the pharmacy that was written by your primary care provider. Call both your primary care provider and client analyst today, by phone, to make arrangements for follow-up appointment in the next 3 days.
[2023-08-24 11:59] VITALS: TEMP 97.4
[2023-08-24] MEDS ORDERED: Sodium Chloride 0.9% 1000 ML 1,000 ML ONE ×2 (12:18→14:55)
[2023-08-24] MEDS ORDERED: Zofran 4 MG/2 ML VIAL ONE ×2 (12:18→12:53)
[2023-08-24] MEDS: Zofran 4 MG/2 ML VIAL IV ONE ×2 (12:22→13:04)
[2023-08-24] MEDS: Sodium Chloride 0.9% 1000 ML 1,000 ML IV STA ×2 (12:22→14:58)
[2023-08-24 12:47] LABS: ISTAT CREA 0.5 mg/dL (0.6-1.3); ISTAT K 3.5 mmol/L (3.5-4.9); ISTAT iCA 1.17 mmol/L (1.12-1.32)
[2023-08-24 12:48] LABS: Absolute Neutrophil Ct (ANC) 4.62 x10^3/uL (1.56-6.13); BASOPHIL % 0.2 % (0.1-1.2); Basophil (Absolute #) 0.01 x10^3/uL (0.01-0.08); Eosinophil % 0.2 % (0.7-5.8); Eosinophil (Absolute #) 0.01 x10^3/uL (0.04-0.36); Hematocrit 43.7 % (34.1-44.9); Hemoglobin 14.2 g/dL (11.2-15.7); IMMATURE GRAN # 0.01 x10^3u/L (0.001-0.031); IMMATURE GRAN % 0.2 % (0.001-0.429); Lymphocyte (Absolute #) 1.28 x10^3/uL (1.18-3.74); Lymphocytes % 20.3 % (19.3-51.7); Mean Cell Volume 81.1 fL (79.4-94.8); Mean Corpuscular Hemoglobin 26.3 pg (25.6-32.2); Mean Corpuscular Hgb Concent. 32.5 g/dL (32.2-35.5); Mean Platelet Volume 8.8 fL (9.4-12.3); Monocyte (Absolute #) 0.38 x10^3/uL (0.24-0.86); Neutrophil % 73.1 % (34.0-71.1); Platelet Count 287 x10^3/uL (182-369); Red Blood Count 5.39 x10^6/uL (3.93-5.22); Red Cell Distribution Width 12.1 % (11.7-14.4); White Blood Count 6.3 x10^3/uL (3.98-10.04)
[2023-08-24 13:26] LABS: INFLUENZA A NEGATIVE (NEGATIVE); INFLUENZA B NEGATIVE (NEGATIVE); RESPIRATORY SYNCTIAL VIRUS NEGATIVE (NEGATIVE); SARS-CoV-2 Xpert Express NEGATIVE (NEGATIVE)
[2023-08-24 13:39] LABS: ALBUMIN 4.5 g/dL (3.5-5.0); ANION GAP 12.9 MEQ/L (5-15); BILIRUBIN,TOTAL 1.5 mg/dL (0.2-1.3); Calcium 9.4 mg/dL (8.4-10.2); Creatinine 1 0.49 mg/dL (0.52-1.04); EST GLOMERULAR FILTRATION RATE 133.2 ML/MIN; Potassium 3.6 mmol/L (3.5-5.1); Total Protein 7.6 g/dL (6.3-8.2)
[2023-08-24 13:54] VITALS: RESP 16
[2023-08-24 14:39] LABS: Appearance Clear (Clear); Bacteria None Seen /HPF (None Seen); Bilirubin Negative (Negative); Blood Negative (Negative); Epithelial Cells Few /HPF (None Seen); Glucose, Urine Negative (Negative); Hyaline Casts NONE SEEN /LPF (0-2); Ketones 40 (Negative); Leukocyte Esterase Trace (Negative); Nitrite Negative (Negative); Protein,Urine Dip Negative (Negative); RBC 0-2 /HPF (0-5); Urobilinogen 0.2 mg/dL (0.2); WBC 0-2 /HPF (0-5)
[2023-08-24 14:40] LABS: ADD URINE CULTURE? NO (NO)
[2023-08-24] MEDS ORDERED: TYLENOL 325 MG ONE (15:32)
[2023-08-24] MEDS: TYLENOL 325 MG PO ONE (15:33)
[2023-08-24 15:39] VITALS: PULSE 84
[2023-08-24 16:18] VITALS: BP 103/66; O2SAT 99
== END 2023-08-24 16:26 | disposition home or self-care (01) ==
LOC: ED 11:39
DX: O98.511 Other viral diseases complicating pregnancy, first trimester (principal); B27.90 Infectious mononucleosis, unspecified without complication; Z3A.01 Less than 8 weeks gestation of pregnancy; R11.2 Nausea with vomiting, unspecified; R19.7 Diarrhea, unspecified; Z72.0 Tobacco use
CPT/HCPCS: 0241U; 36000; 36415; 80047; 80053; 81001; 82150; 83605; 83690; 85025; 86308; 87040; 87651; 96360; 96361; 96374; 96376; 99284; J2405; A9270-GY

== ENCOUNTER 2024-02-14 00:50 | Emergency (ER) | payer MEDICAID ==
--- NOTE | 2024-02-14 00:53 | ERPHSYRPT ---
- History of Present Illness Time Seen by Provider: 02/14/24 00:53 Historian: patient, family Exam Limitations: no limitations Physician History: This is a 28-year-old white female patient of Dr. Alva who is 31 weeks and presents with vomiting diarrhea and post vomiting abdominal pain that began approximately 1800 the evening of 02/13/2024. Patient is unable to hold down liquids and could not hold down her Zofran antiemetic. Patient denies chest pain. Patient denies shortness of breath. She has no dysuria. She denies vaginal discharge. Timing/Duration: today Activities at Onset: none Quality: aching Abdominal Pain Onset Location: generalized abdomen Pain Radiation: no radiation Severity of Pain-Max: mild Severity of Pain-Current: mild Modifying Factors: Improves With: vomiting Associated Symptoms: diarrhea, loss of appetite, nausea, vomiting, No chest pain, No fever/chills, No headache, No shortness of breath, No weakness Previous symptoms: no prior history, no recent treatment Allergies/Adverse Reactions: No Known Drug Allergies Allergy (Verified 02/14/24 01:24) STATES WAS ALLERGIC TO THREE DIFFERENT TYPES OF HEADACHE MEDICATIONS BUT DOESN'T KNOW WHAT THEY WERE, SAID IT WAS A LONG TIME AGO. Home Medications: Pnv No.103/Folic/Om3s/Fish Oil [ Gummies] 1 tab PO DAILY 04/08/23 [History] Sertraline HCl 50 mg [Zoloft 50 mg Tablet] 50 mg PO DAILY 02/14/24 [History] Hx Tetanus, Diphtheria Vaccination/Date Given: Yes Hx Influenza Vaccination/Date Given: Yes Hx Pneumococcal Vaccination/Date Given: No Travel Risk - Emerging Infectious Disease Are you exhibiting symptoms associated with any current EIDs: Yes Symptoms: Diarrhea, Vomitting - Review of Systems Constitutional: No Symptoms Eyes: No Symptoms Ears, Nose, & Throat: No Symptoms Respiratory: No Symptoms Cardiac: No Symptoms Abdominal/Gastrointestinal: Abdominal Pain (Generalized muscular pain), Nausea, Vomiting, Diarrhea, Appetite Changes, No Constipation Genitourinary Symptoms: No Symptoms Musculoskeletal: No Symptoms Skin: No Symptoms Neurological: No Symptoms Psychological: No Symptoms Endocrine: No Symptoms Hematologic/Lymphatic: No Symptoms Immunological/Allergic: No Symptoms All Other Systems: Reviewed and Negative - Past Medical History Pertinent Past Medical History: Yes Neurological History: No Pertinent History ENT History: No Pertinent History Cardiac History: No Pertinent History Respiratory History: No Pertinent History Endocrine Medical History: No Pertinent History Musculoskeletal History: No Pertinent History GI Medical History: Gallbladder Disease History: No Pertinent History Psycho-Social History: No Pertinent History Female Reproductive Disorders: No Pertinent History Other Medical History: Hx Gall stones. Gilbert's syndrome. Anemia - Past Surgical History Past Surgical History: No Neuro Surgical History: No Pertinent History Cardiac: No Pertinent History Respiratory: No Pertinent History Gastrointestinal: Cholecystectomy Genitourinary: No Pertinent History Musculoskeletal: No Pertinent History Female Surgical History: No Pertinent History - Female History Hx Last Menstrual Period: july 09 - Social History Smoking Status: Current every day smoker How long have you smoked: 4 Exposure to second hand smoke: No Drug Use: none Patient Lives Alone: No - Social Determinants of Health Will the patient participate in the screening: Yes Do you worry about a steady place to live?: No In the past 12 months,have you had to go without utilities?: No Transportation Issues: No Has anyone in your support network made you feel unsafe?: No Have you or anyone in your house had to go without enough: No - Nursing Vital Signs Nursing Vital Signs: Initial Vital Signs Temperature 98.4 F 02/14/24 00:59 Pulse Rate 91 H 02/14/24 00:59 Respiratory Rate 19 02/14/24 00:59 Blood Pressure 104/66 02/14/24 00:59 O2 Sat by Pulse Oximetry 100 02/14/24 00:59 Pain Scale Pain Intensity 8 - Physical Exam General Appearance: mild distress, alert, anxiety, obese Eye Exam: PERRL/EOMI, eyes nml inspection Ears, Nose, Throat Exam: normal ENT inspection, moist mucous membranes Neck Exam: normal inspection, non-tender, supple, full range of motion Respiratory Exam: normal breath sounds, lungs clear, airway intact, No chest tenderness, No respiratory distress Cardiovascular Exam: regular rate/rhythm, normal heart sounds, normal peripheral pulses Gastrointestinal/Abdomen Exam: soft, normal bowel sounds, No tenderness Pelvic Exam: not done Rectal Exam: not done Back Exam: normal inspection, normal range of motion, No CVA tenderness, No vertebral tenderness Extremity Exam: normal inspection, normal range of motion, pelvis stable Neurologic Exam: alert, oriented x 3, cooperative, flyer maker II-XII nml as tested, nml cerebellar function, nml station & gait, sensation nml Skin Exam: normal color, warm, dry Lymphatic Exam: No adenopathy SpO2 Interpretation: normal O2 Delivery: Room Air - Course Nursing assessment & vital signs reviewed: Yes Ordered Tests: Active Orders 24 hr Category Date Time Status IV Insertion STAT Care 02/14/24 00:53 Active AMYLASE Stat Lab 02/14/24 01:15 Completed CBC W DIFF Stat Lab 02/14/24 01:15 Completed CMP Stat Lab 02/14/24 01:15 Completed LIPASE Stat Lab 02/14/24 01:15 Completed MONO SCREEN Stat Lab 02/14/24 01:15 Completed UA W/RFX UR CULTURE Stat Lab 02/14/24 01:29 Completed Medication Summary Generic Name Dose Route Start Last Admin Trade Name Freq PRN Reason Stop Dose Admin Sodium Chloride 1,000 mls @ 999 mls/hr 02/14/24 02:14 Sodium Chloride 0.9% 1000 Ml IV 02/14/24 03:14 .Q1H1M STA Discontinued Medications Generic Name Dose Route Start Last Admin Trade Name Freq PRN Reason Stop Dose Admin Diphenhydramine HCl 25 mg 02/14/24 01:45 02/14/24 02:03 Diphenhydramine Hcl 50 Mg/Ml Vial IV 02/14/24 01:46 25 mg STAT ONE Administration Diphenhydramine HCl Confirm 02/14/24 02:02 Diphenhydramine Hcl 50 Mg/Ml Vial Administered 02/14/24 02:03 Dose 50 mg .ROUTE .STK-MED ONE Sodium Chloride 1,000 mls @ 999 mls/hr 02/14/24 00:53 02/14/24 01:13 Sodium Chloride 0.9% 1000 Ml IV 02/14/24 01:53 999 mls/hr .Q1H1M STA Administration Sodium Chloride Confirm 02/14/24 01:06 Sodium Chloride 0.9% 1000 Ml Administered 02/14/24 01:07 Dose 1,000 mls @ ud .ROUTE .STK-MED ONE Ondansetron HCl 4 mg 02/14/24 00:53 02/14/24 01:12 Ondansetron Hcl 4 Mg/2 Ml Vial IV 02/14/24 00:54 4 mg STAT ONE Administration Ondansetron HCl Confirm 02/14/24 01:06 Ondansetron Hcl 4 Mg/2 Ml Vial Administered 02/14/24 01:07 Dose 4 mg .ROUTE .STK-MED ONE Potassium Chloride 20 meq 02/14/24 01:50 Potassium Chloride Tab 10 Meq Tab PO 02/14/24 01:51 STAT ONE Potassium Chloride Confirm 02/14/24 02:41 Potassium Chloride Tab 10 Meq Tab Administered 02/14/24 02:42 Dose 20 meq .ROUTE .STK-MED ONE Prochlorperazine Edisylate 5 mg 02/14/24 01:44 02/14/24 02:03 Prochlorperazine Edisylate 10 Mg/2 Ml Vial IV 02/14/24 01:45 5 mg STAT ONE Administration Prochlorperazine Edisylate Confirm 02/14/24 02:02 Prochlorperazine Edisylate 10 Mg/2 Ml Vial Administered 02/14/24 02:03 Dose 10 mg .ROUTE .STK-MED ONE Lab/Rad Data: Laboratory Result Diagrams 02/14/24 01:15 02/14/24 01:15 Laboratory Results 02/14/24 02/14/24 02/14/24 Range/Units 01:29 01:20 01:15 WBC (3.98-10.04) x10^3/uL RBC (3.93-5.22) x10^6/uL Hgb (11.2-15.7) g/dL Hct (34.1-44.9) % MCV (79.4-94.8) fL MCH (25.6-32.2) pg MCHC (32.2-35.5) g/dL RDW (11.7-14.4) % Plt Count (182-369) x10^3/uL MPV (9.4-12.3) fL Gran % (34.0-71.1) % Immature Gran % (Auto) (0.001-0.429) % Nucleat RBC Rel Count (0.00-0.2) % Eos # (Auto) (0.04-0.36) x10^3/uL Immature Gran # (Auto) (0.001-0.031) x10^3u/L Absolute Lymphs (auto) (1.18-3.74) x10^3/uL Absolute Monos (auto) (0.24-0.86) x10^3/uL Absolute Nucleated RBC (0.00-0.012) x10^3u/L Lymphocytes % (19.3-51.7) % Monocytes % (4.7-12.5) % Eosinophils % (0.7-5.8) % Basophils % (0.1-1.2) % Absolute Granulocytes (1.56-6.13) x10^3/uL Basophils # (0.01-0.08) x10^3/uL Sodium (135-145) mmol/L Potassium (3.5-5.1) mmol/L Chloride (98-107) mmol/L Carbon Dioxide (22-30) mmol/L Anion Gap (5-15) MEQ/L BUN (7-17) mg/dL Creatinine (0.52-1.04) mg/dL Estimated GFR ML/MIN Glucose (74-106) mg/dL Calcium (8.4-10.2) mg/dL Total Bilirubin (0.2-1.3) mg/dL AST (14-36) U/L ALT (0-35) U/L Alkaline Phosphatase (38-126) U/L Serum Total Protein (6.3-8.2) g/dL Albumin (3.5-5.0) g/dL Amylase (30-110) U/L Lipase (23-300) U/L Urine Color Yellow (Yellow) Urine Appearance Cloudy A (Clear) Urine pH 5.5 (4.6-8.0) Ur Specific [place] >=1.030 A (1.005-1.030) Urine Protein 30 (Negative) Urine Glucose (UA) Negative (Negative) mg/dL Urine Ketones >=160 A (Negative) Urine Blood Negative (Negative) Urine Nitrite Negative (Negative) Urine Bilirubin Negative (Negative) Urine Urobilinogen 0.2 (0.2) mg/dL Ur Leukocyte Esterase Negative (Negative) U Hyaline Cast (Auto) NONE SEEN (0-2) /LPF Urine Microscopic RBC 0-2 (0-5) /HPF Urine Microscopic WBC 3-5 (0-5) /HPF Ur Epithelial Cells Moderate A (None Seen) /HPF Urine Bacteria Rare A (None Seen) /HPF Urine Culture Reflexed NO (NO) Monoscreen NEGATIVE (NEGATIVE) Influenza Type A Ag NEGATIVE (NEGATIVE) Influenza Type B Ag NEGATIVE (NEGATIVE) RSV (PCR) NEGATIVE (NEGATIVE) SARS-CoV-2 (PCR) NEGATIVE (NEGATIVE) 02/14/24 02/14/24 Range/Units 01:15 01:15 WBC 7.7 (3.98-10.04) x10^3/uL RBC 4.78 (3.93-5.22) x10^6/uL Hgb 12.9 (11.2-15.7) g/dL Hct 40.2 (34.1-44.9) % MCV 84.1 (79.4-94.8) fL MCH 27.0 (25.6-32.2) pg MCHC 32.1 L (32.2-35.5) g/dL RDW 11.9 (11.7-14.4) % Plt Count 227 (182-369) x10^3/uL MPV 8.7 L (9.4-12.3) fL Gran % 89.7 H (34.0-71.1) % Immature Gran % (Auto) 1.0 H (0.001-0.429) % Nucleat RBC Rel Count 0.0 (0.00-0.2) % Eos # (Auto) 0 L (0.04-0.36) x10^3/uL Immature Gran # (Auto) 0.08 H (0.001-0.031) x10^3u/L Absolute Lymphs (auto) 0.32 L (1.18-3.74) x10^3/uL Absolute Monos (auto) 0.37 (0.24-0.86) x10^3/uL Absolute Nucleated RBC 0.00 (0.00-0.012) x10^3u/L Lymphocytes % 4.2 L (19.3-51.7) % Monocytes % 4.8 (4.7-12.5) % Eosinophils % 0.0 L (0.7-5.8) % Basophils % 0.3 (0.1-1.2) % Absolute Granulocytes 6.90 H (1.56-6.13) x10^3/uL Basophils # 0.02 (0.01-0.08) x10^3/uL Sodium 137 (135-145) mmol/L Potassium 3.2 L (3.5-5.1) mmol/L Chloride 104 (98-107) mmol/L Carbon Dioxide 18 L (22-30) mmol/L Anion Gap 17.6 H (5-15) MEQ/L BUN 11 (7-17) mg/dL Creatinine 0.48 L (0.52-1.04) mg/dL Estimated GFR 133.9 ML/MIN Glucose 151 H (74-106) mg/dL Calcium 8.5 (8.4-10.2) mg/dL Total Bilirubin 1.30 (0.2-1.3) mg/dL AST 37 H (14-36) U/L ALT 29 (0-35) U/L Alkaline Phosphatase 149 H (38-126) U/L Serum Total Protein 7.2 (6.3-8.2) g/dL Albumin 4.1 (3.5-5.0) g/dL Amylase 50 (30-110) U/L Lipase 55 (23-300) U/L Urine Color (Yellow) Urine Appearance (Clear) Urine pH (4.6-8.0) Ur Specific [place] (1.005-1.030) Urine Protein (Negative) Urine Glucose (UA) (Negative) mg/dL Urine Ketones (Negative) Urine Blood (Negative) Urine Nitrite (Negative) Urine Bilirubin (Negative) Urine Urobilinogen (0.2) mg/dL Ur Leukocyte Esterase (Negative) U Hyaline Cast (Auto) (0-2) /LPF Urine Microscopic RBC (0-5) /HPF Urine Microscopic WBC (0-5) /HPF Ur Epithelial Cells (None Seen) /HPF Urine Bacteria (None Seen) /HPF Urine Culture Reflexed (NO) Monoscreen (NEGATIVE) Influenza Type A Ag (NEGATIVE) Influenza Type B Ag (NEGATIVE) RSV (PCR) (NEGATIVE) SARS-CoV-2 (PCR) (NEGATIVE) - Progress Progress: improved, re-examined Progress Note: 02/14/24 01:53 My medical decision making and the assignment of moderate complexity to this patient's medical issue today is based on review of the patient's past medical history, review of the patient's medication list, review of the patient's medication allergies, history present illness and physical findings on examination. The workup in this patient includes placement of an intravenous line, infusion of Zofran intravenously, infusion of crystalloid intravenously, urinalysis, CBC, CMP, amylase, lipase. Will also have OB department monitor this patient during her stay in the emergency department. The patient will be cleared from our standpoint and from the OB department standpoint before she is discharged home. Differential diagnosis includes is not limited to vomiting of , viral illness, dehydration, urinary tract infection, electrolyte abnormalities 02/14/24 01:55 02/14/24 02:49 I interpreted the patient's laboratory data results. Based on the laboratory data results, patient has mild hypokalemia and has significant dehydration secondary to vomiting. I spoke with Dr. Doyle who is covering for obstetrics this morning. He agrees that we will discharge this patient from the emergency department. The patient will then be registered to be monitored in the obstetrics department secondary to evidence of contraction verified by house builder Jessie Counseled pt/family regarding: lab results, diagnosis, need for follow-up Medical Desision Making - Independent Historian Additional History obtained from: Family - Diagnostic Testing Diagnostic test were ordered, analyzed, and reviewed by me: Yes - Risk of complications Low Risk: Low risk of morbidity from additional dx testing or treatment - Departure Departure Disposition: Home Clinical Impression: Vomiting during , Dehydration, Hypokalemia Condition: Stable Critical Care Time: No Referrals: MAKAYLA ALVA MD [Primary Care Provider] - Follow up/PCP as directed Additional Instructions: Go directly to be registered for continued monitoring in the obstetric department
[2024-02-14] MEDS ORDERED: Zofran 4 MG/2 ML VIAL ONE (01:06)
[2024-02-14] MEDS ORDERED: Sodium Chloride 0.9% 1000 ML 1,000 ML ONE ×2 (01:06→02:51)
[2024-02-14] MEDS: Zofran 4 MG/2 ML VIAL IV ONE (01:12)
[2024-02-14 01:13] VITALS: TEMP 98.4
[2024-02-14] MEDS: Sodium Chloride 0.9% 1000 ML 1,000 ML IV STA ×2 (01:13→02:52)
[2024-02-14 01:26] LABS: BASOPHIL % 0.3 % (0.1-1.2); Basophil (Absolute #) 0.02 x10^3/uL (0.01-0.08); Eosinophil (Absolute #) 0 x10^3/uL (0.04-0.36); Hematocrit 40.2 % (34.1-44.9); Hemoglobin 12.9 g/dL (11.2-15.7); IMMATURE GRAN # 0.08 x10^3u/L (0.001-0.031); Lymphocyte (Absolute #) 0.32 x10^3/uL (1.18-3.74); Lymphocytes % 4.2 % (19.3-51.7); Mean Cell Volume 84.1 fL (79.4-94.8); Mean Corpuscular Hgb Concent. 32.1 g/dL (32.2-35.5); Mean Platelet Volume 8.7 fL (9.4-12.3); Monocyte (Absolute #) 0.37 x10^3/uL (0.24-0.86); Monocytes % 4.8 % (4.7-12.5); Neutrophil % 89.7 % (34.0-71.1); Platelet Count 227 x10^3/uL (182-369); Red Blood Count 4.78 x10^6/uL (3.93-5.22); Red Cell Distribution Width 11.9 % (11.7-14.4); White Blood Count 7.7 x10^3/uL (3.98-10.04)
[2024-02-14 01:39] LABS: ALBUMIN 4.1 g/dL (3.5-5.0); ANION GAP 17.6 MEQ/L (5-15); BILIRUBIN,TOTAL 1.3 mg/dL (0.2-1.3); Calcium 8.5 mg/dL (8.4-10.2); Creatinine 1 0.48 mg/dL (0.52-1.04); EST GLOMERULAR FILTRATION RATE 133.9 ML/MIN; Potassium 3.2 mmol/L (3.5-5.1); Total Protein 7.2 g/dL (6.3-8.2)
[2024-02-14] MEDS ORDERED: Compazine 10 MG/2 ML ONE (02:02)
[2024-02-14] MEDS ORDERED: BENADRYL 50 MG/ML ONE (02:02)
[2024-02-14 02:03] LABS: INFLUENZA A NEGATIVE (NEGATIVE); INFLUENZA B NEGATIVE (NEGATIVE); RESPIRATORY SYNCTIAL VIRUS NEGATIVE (NEGATIVE); SARS-CoV-2 Xpert Express NEGATIVE (NEGATIVE)
[2024-02-14] MEDS: BENADRYL 50 MG/ML IV ONE (02:03)
[2024-02-14] MEDS: Compazine 10 MG/2 ML IV ONE (02:03)
[2024-02-14 02:27] LABS: Appearance Cloudy (Clear); Bacteria Rare /HPF (None Seen); Bilirubin Negative (Negative); Blood Negative (Negative); Epithelial Cells Moderate /HPF (None Seen); Glucose, Urine Negative (Negative); Hyaline Casts NONE SEEN /LPF (0-2); Ketones >=160 (Negative); Leukocyte Esterase Negative (Negative); Nitrite Negative (Negative); Ph 5.5 (4.6-8.0); Protein,Urine Dip 30 (Negative); RBC 0-2 /HPF (0-5); Specific Gravity >=1.030 (1.005-1.030); Urobilinogen 0.2 mg/dL (0.2)
[2024-02-14] MEDS: Klor Con PO ONE (02:41)
[2024-02-14] MEDS ORDERED: Klor Con ONE (02:41)
[2024-02-14 03:24] LABS: Slide Review 1 YES
[2024-02-14 04:03] VITALS: BP 104/59; PULSE 95; RESP 19; O2SAT 100
== END 2024-02-14 04:28 | disposition home or self-care (01) ==
LOC: ED 00:50
DX: R11.2 Nausea with vomiting, unspecified (principal); R19.7 Diarrhea, unspecified; Z3A.31 31 weeks gestation of pregnancy; E87.6 Hypokalemia; E86.0 Dehydration
CPT/HCPCS: 0241U; 36415; 80053; 81001; 82150; 83690; 85025; 86308; 96360; 96361; 96374; 96375; 99284; J1200; J2405; A9270-GY

== ENCOUNTER 2024-03-09 07:45 | Observation (INO) | payer MEDICAID ==
[2024-03-09 08:22] LABS: Appearance Clear (Clear); Bacteria None Seen /HPF (None Seen); Bilirubin Negative (Negative); Blood Negative (Negative); Epithelial Cells Few /HPF (None Seen); Glucose, Urine Negative (Negative); Hyaline Casts NONE SEEN /LPF (0-2); Ketones Negative (Negative); Leukocyte Esterase Trace (Negative); Nitrite Negative (Negative); Protein,Urine Dip Negative (Negative); RBC 0-2 /HPF (0-5); Specific Gravity 1.015 (1.005-1.030); Urobilinogen 0.2 mg/dL (0.2)
[2024-03-09 08:41] LABS: Amphetamine,Urine NEGATIVE (NEGATIVE); Barbiturate,Urine NEGATIVE (NEGATIVE); Benzodiazepine,Urine NEGATIVE (NEGATIVE); Cocaine,Urine NEGATIVE (NEGATIVE); Methadone,Urine NEGATIVE (NEGATIVE); Opiate,Urine NEGATIVE (NEGATIVE); PCP,Urine NEGATIVE (NEGATIVE); THC,Urine POSITIVE (NEGATIVE)
--- NOTE | 2024-03-09 10:24 | XRAY ---
Indication: Status post fall onto abdomen. Limited 2-dimensional OB ultrasound performed. Comparison: February 10, 2024. Again single viable intrauterine in cephalic presentation. heart rate 140 BPM. Again posterior placenta without abruption/previa. Cervical length is 2.2 cm. Four-quadrant MAHOGANY is 17.3 cm. No new/acute findings.
[2024-03-09 11:38] VITALS: BP 106/60; PULSE 83; RESP 16; TEMP 97.8; O2SAT 99
[2024-03-09] MEDS: TYLENOL EXTRA STRENGTH 500 MG PO ONE (11:57)
[2024-03-09] MEDS ORDERED: Lactated Ringers 1,000 ML IV SCH (15:30)
== END 2024-03-09 15:55 | disposition home or self-care (01) ==
LOC: OB 07:45
PROVIDERS: ADMIT Obstetrics & Gynecology; ATTEND Obstetrics & Gynecology
DX: Z34.83 Encounter for supervision of other normal pregnancy, third trimester (principal); Z3A.34 34 weeks gestation of pregnancy
CPT/HCPCS: 76816; 80307; 81001; G0378; G0379; A9270-GY

== ENCOUNTER 2024-03-14 10:32 | Observation (INO) | payer MEDICAID ==
[2024-03-14 11:36] VITALS: BP 114/63; PULSE 86; RESP 14; TEMP 97.4; O2SAT 98
== END 2024-03-14 12:05 | disposition home or self-care (01) ==
LOC: OB 10:32
PROVIDERS: ADMIT Obstetrics & Gynecology; ATTEND Obstetrics & Gynecology
DX: Z34.83 Encounter for supervision of other normal pregnancy, third trimester (principal); Z3A.35 35 weeks gestation of pregnancy
CPT/HCPCS: 59025; 99213; G0378; G0379

== ENCOUNTER 2024-03-21 15:47 | Inpatient (IN) | payer MEDICAID ==
[2024-03-21] MEDS: Lactated Ringers 1,000 ML IV ONE (16:00)
[2024-03-21] MEDS ORDERED: XYLOCAINE 1% HCL 20 ML MDV IJ PRN (16:24)
[2024-03-21] MEDS ORDERED: Ephedrine Sulfate 50 MG/ML IV PRN (16:26)
[2024-03-21 16:42] LABS: Absolute Neutrophil Ct (ANC) 5.52 x10^3/uL (1.56-6.13); BASOPHIL % 0.3 % (0.1-1.2); Basophil (Absolute #) 0.02 x10^3/uL (0.01-0.08); Eosinophil % 0.4 % (0.7-5.8); Eosinophil (Absolute #) 0.03 x10^3/uL (0.04-0.36); Hematocrit 37.9 % (34.1-44.9); Hemoglobin 12.4 g/dL (11.2-15.7); IMMATURE GRAN # 0.11 x10^3u/L (0.001-0.031); IMMATURE GRAN % 1.5 % (0.001-0.429); Lymphocytes % 13.8 % (19.3-51.7); Mean Cell Volume 83.1 fL (79.4-94.8); Mean Corpuscular Hemoglobin 27.2 pg (25.6-32.2); Mean Corpuscular Hgb Concent. 32.7 g/dL (32.2-35.5); Mean Platelet Volume 9.3 fL (9.4-12.3); Monocyte (Absolute #) 0.59 x10^3/uL (0.24-0.86); Monocytes % 8.1 % (4.7-12.5); Neutrophil % 75.9 % (34.0-71.1); Platelet Count 205 x10^3/uL (182-369); Red Blood Count 4.56 x10^6/uL (3.93-5.22); Red Cell Distribution Width 13.2 % (11.7-14.4); White Blood Count 7.3 x10^3/uL (3.98-10.04)
[2024-03-21] MEDS ORDERED: FENTANYL 2 MCG-BUPIV 0.125%-NS 250 ML Epidur 250 ML EPIDURAL ONE (16:57)
[2024-03-21 17:03] LABS: Amphetamine,Urine NEGATIVE (NEGATIVE); Barbiturate,Urine NEGATIVE (NEGATIVE); Benzodiazepine,Urine NEGATIVE (NEGATIVE); Cocaine,Urine NEGATIVE (NEGATIVE); Methadone,Urine NEGATIVE (NEGATIVE); Opiate,Urine NEGATIVE (NEGATIVE); PCP,Urine NEGATIVE (NEGATIVE); THC,Urine POSITIVE (NEGATIVE)
[2024-03-21] MEDS: PITOCIN 30 UNITS/ LR 500 ML 30 UNITS/500 ML PLAST..BAG IV SCH (17:09)
[2024-03-21] MEDS: Lactated Ringers 1,000 ML IV SCH (17:09)
[2024-03-21] MEDS: FENTANYL 2 MCG-BUPIV 0.125%-NS 250 ML Epidur 250 ML EPIDURAL SCH (17:10)
[2024-03-21 17:46] LABS: ABO TYPING O; Antibody Screen NEGATIVE (NEGATIVE); RH TYPING POSITIVE
[2024-03-21] MEDS ORDERED: Dulcolax 10 MG SUPP PR PRN (19:34)
[2024-03-21] MEDS ORDERED: Anucort-HC SUPPOSITORY PR PRN (19:34)
[2024-03-21] MEDS ORDERED: Ambien 10 MG PO PRN (19:34)
[2024-03-21] MEDS ORDERED: Restoril 15 MG PO PRN (19:34)
[2024-03-21] MEDS ORDERED: Mylicon 80MG PO PRN (19:34)
[2024-03-21] MEDS: TYLENOL EXTRA STRENGTH 500 MG PO PRN (21:08)
[2024-03-21] MEDS: Docusate Sodium 100 MG PO SCH (23:05)
[2024-03-21] MEDS: Dermoplast Spray TP PRN (23:23)
[2024-03-21] MEDS: TUCKS TP PRN (23:24)
[2024-03-21] MEDS: CORTISONE 1% CREAM TP PRN (23:24)
[2024-03-22] MEDS: MOTRIN 400 MG PO PRN (01:35)
[2024-03-22 05:28] LABS: BASOPHIL % 0.3 % (0.1-1.2); Basophil (Absolute #) 0.02 x10^3/uL (0.01-0.08); Eosinophil % 0.3 % (0.7-5.8); Eosinophil (Absolute #) 0.02 x10^3/uL (0.04-0.36); Hematocrit 35.8 % (34.1-44.9); Hemoglobin 11.7 g/dL (11.2-15.7); IMMATURE GRAN # 0.06 x10^3u/L (0.001-0.031); Lymphocyte (Absolute #) 1.33 x10^3/uL (1.18-3.74); Lymphocytes % 21.5 % (19.3-51.7); Mean Cell Volume 83.4 fL (79.4-94.8); Mean Corpuscular Hemoglobin 27.3 pg (25.6-32.2); Mean Corpuscular Hgb Concent. 32.7 g/dL (32.2-35.5); Mean Platelet Volume 9.3 fL (9.4-12.3); Monocyte (Absolute #) 0.47 x10^3/uL (0.24-0.86); Monocytes % 7.6 % (4.7-12.5); Neutrophil % 69.3 % (34.0-71.1); Platelet Count 167 x10^3/uL (182-369); Red Blood Count 4.29 x10^6/uL (3.93-5.22); Red Cell Distribution Width 13.1 % (11.7-14.4); White Blood Count 6.2 x10^3/uL (3.98-10.04)
--- NOTE | 2024-03-22 07:56 | PCM.NOTE ---
Date and Time: 03/22/24 075 Subjective Assessment: ppd 1 sp pt resting in bed and doing well able to ambulate and tolerate diet vss afebrile abd; soft uterus; firm lochia; mild hgb; 11.7 a/p sp ppd 1 dc home tomorrow should fu in office in 3 wks Objective Data Vital Signs: Vital Signs - 24 hr Temp Pulse Resp BP BP Pulse Ox 03/22/24 01:37 97.9 F 71 20 96/58 96 03/21/24 22:30 98 F 67 16 110/87 03/21/24 20:15 98 F 78 16 101/59 03/21/24 20:00 98.2 F 85 16 107/70 100 03/21/24 19:45 73 16 110/77 100 03/21/24 19:30 71 16 109/70 99 03/21/24 19:15 98 F 78 16 111/72 99 03/21/24 19:00 78 16 101/59 03/21/24 18:45 92 H 16 102/58 03/21/24 18:30 83 16 103/57 03/21/24 18:20 18 03/21/24 18:15 81 18 106/62 03/21/24 18:00 18 106/64 03/21/24 17:45 96 H 18 106/62 03/21/24 17:30 18 03/21/24 17:24 98 F 90 18 110/76 03/21/24 17:00 18 03/21/24 16:30 18 03/21/24 16:00 18 Pain Assessment - Last Documented Pain Intensity 5 Pain Scale Used 0-10 Pain Scale Intake and Output: Intake & Output 03/19/24 03/20/24 03/21/24 03/22/24 11:59 11:59 11:59 11:59 Intake Total 500 Balance 500 Weight 88.904 kg Lab Results: Lab Results-Last 24 Hours 03/21/24 03/21/24 03/21/24 Range/Units 16:20 16:34 16:34 WBC 7.3 (3.98-10.04) x10^3/uL RBC 4.56 (3.93-5.22) x10^6/uL Hgb 12.4 (11.2-15.7) g/dL Hct 37.9 (34.1-44.9) % MCV 83.1 (79.4-94.8) fL MCH 27.2 (25.6-32.2) pg MCHC 32.7 (32.2-35.5) g/dL RDW 13.2 (11.7-14.4) % Plt Count 205 (182-369) x10^3/uL MPV 9.3 L (9.4-12.3) fL Gran % 75.9 H (34.0-71.1) % Immature Gran % (Auto) 1.5 H (0.001-0.429) % Nucleat RBC Rel Count 0.0 (0.00-0.2) % Eos # (Auto) 0.03 L (0.04-0.36) x10^3/uL Immature Gran # (Auto) 0.11 H (0.001-0.031) x10^3u/L Absolute Lymphs (auto) 1.00 L (1.18-3.74) x10^3/uL Absolute Monos (auto) 0.59 (0.24-0.86) x10^3/uL Absolute Nucleated RBC 0.00 (0.00-0.012) x10^3u/L Lymphocytes % 13.8 L (19.3-51.7) % Monocytes % 8.1 (4.7-12.5) % Eosinophils % 0.4 L (0.7-5.8) % Basophils % 0.3 (0.1-1.2) % Absolute Granulocytes 5.52 (1.56-6.13) x10^3/uL Basophils # 0.02 (0.01-0.08) x10^3/uL Urine Opiates Level NEGATIVE (NEGATIVE) Ur Methadone NEGATIVE (NEGATIVE) Urine Barbiturates NEGATIVE (NEGATIVE) Ur Phencyclidine (PCP) NEGATIVE (NEGATIVE) Urine Amphetamine NEGATIVE (NEGATIVE) U Benzodiazepine Level NEGATIVE (NEGATIVE) Urine Cocaine NEGATIVE (NEGATIVE) Urine Marijuana (THC) POSITIVE A (NEGATIVE) ABO Group O Rh Factor POSITIVE Antibody Screen NEGATIVE (NEGATIVE) 03/22/24 Range/Units 04:55 WBC 6.2 (3.98-10.04) x10^3/uL RBC 4.29 (3.93-5.22) x10^6/uL Hgb 11.7 (11.2-15.7) g/dL Hct 35.8 (34.1-44.9) % MCV 83.4 (79.4-94.8) fL MCH 27.3 (25.6-32.2) pg MCHC 32.7 (32.2-35.5) g/dL RDW 13.1 (11.7-14.4) % Plt Count 167 L (182-369) x10^3/uL MPV 9.3 L (9.4-12.3) fL Gran % 69.3 (34.0-71.1) % Immature Gran % (Auto) 1.0 H (0.001-0.429) % Nucleat RBC Rel Count 0.0 (0.00-0.2) % Eos # (Auto) 0.02 L (0.04-0.36) x10^3/uL Immature Gran # (Auto) 0.06 H (0.001-0.031) x10^3u/L Absolute Lymphs (auto) 1.33 (1.18-3.74) x10^3/uL Absolute Monos (auto) 0.47 (0.24-0.86) x10^3/uL Absolute Nucleated RBC 0.00 (0.00-0.012) x10^3u/L Lymphocytes % 21.5 (19.3-51.7) % Monocytes % 7.6 (4.7-12.5) % Eosinophils % 0.3 L (0.7-5.8) % Basophils % 0.3 (0.1-1.2) % Absolute Granulocytes 4.30 (1.56-6.13) x10^3/uL Basophils # 0.02 (0.01-0.08) x10^3/uL Urine Opiates Level (NEGATIVE) Ur Methadone (NEGATIVE) Urine Barbiturates (NEGATIVE) Ur Phencyclidine (PCP) (NEGATIVE) Urine Amphetamine (NEGATIVE) U Benzodiazepine Level (NEGATIVE) Urine Cocaine (NEGATIVE) Urine Marijuana (THC) (NEGATIVE) ABO Group Rh Factor Antibody Screen (NEGATIVE) Multi-Disciplinary Progress Notes: Multi-Disciplinary Progress Notes 03/21/24 18:37 Respiratory Note by Taina Culver Infant delivered at 1820. was crying, had good tone and good color. HR was 150-160, breathsounds clear. was 9 at 1 minute and 10 at 5 minutes. Infant remained on mothers chest. No respiratory interventions at this time. Initialized on 03/21/24 18:37 - END OF NOTE Assessment/Plan (1) delivery Current Visit: Yes Status: Acute Code(s): O60.10X0 - LABOR W DELIVERY, UNSP TRIMESTER, UNSP
--- NOTE | 2024-03-22 08:00 | PCM.HP ---
History of Present Illness - Chief Complaint Chief Complaint: Labor History of Present Illness: is a 28 year old female. pt is a 28 yo iup at 36 4/7 wks gestation presented to labor delivery in labor and was examined to be 7-8 cm dilated upon presentation. she was seen earlier in the day and was noted to being 4cm with minimal contractions that were noted. vss afebrle abd; gravid exam; /-2 a/p iup at 36 4/7 wks in labor expectant management Medications & Allergies Home Medications: Home Medication List Pnv No.103/Folic/Om3s/Fish Oil [ Gummies] 1 tab PO HS 04/08/23 [History Confirmed 03/21/24] Sertraline HCl 50 mg [Zoloft 50 mg Tablet] 50 mg PO HS 02/14/24 [History Confirmed 03/21/24] Allergies/Adverse Reactions: Allergies Allergy/AdvReac Type Severity Reaction Status Date / Time No Known Drug Allergies Allergy Verified 02/14/24 01:24 - Past Medical History Past Medical History: Yes Neurological History: No Pertinent History ENT History: No Pertinent History Cardiac History: No Pertinent History Respiratory History: No Pertinent History Endocrine Medical History: No Pertinent History Musculoskelatal History: No Pertinent History GI Medical History: Gallbladder Disease History: No Pertinent History Pyscho-Social History: No Pertinent History Reproductive Disorders: No Pertinent History Comment: Hx Gall stones. Gilbert's syndrome. Anemia - Female History Expected Date of Delivery: 04/14/24 - Past Surgical History Past Surgical History: No Neuro Surgical History: No Pertinent History Cardiac History: No Pertinent History Respiratory Surgery: No Pertinent History GI Surgical History: Cholecystectomy Genitourinary Surgical Hx: No Pertinent History Musculskeletal Surgical Hx: No Pertinent History Female Surgical History: No Pertinent History - Social History Smoking Status: Current every day smoker How long have you smoked: 4 Exposure to second hand smoke: No Alcohol: None Drug Use: none - Social Determinants of Health Will the patient participate in the screening: Yes Do you worry about a steady place to live?: No Do you have any problems with any of the following?: No known problems In the past 12 months,have you had to go without utilities?: No Have you or anyone in your house had to go without enough: No Transportation Issues: No Has anyone in your support network made you feel unsafe?: No Does the patient want assistance with any of the above?: No - Physical Exam Vital Signs: Vital Signs - 24 hr Temp Pulse Resp BP BP Pulse Ox 03/22/24 01:37 97.9 F 71 20 96/58 96 03/21/24 22:30 98 F 67 16 110/87 03/21/24 20:15 98 F 78 16 101/59 03/21/24 20:00 98.2 F 85 16 107/70 100 03/21/24 19:45 73 16 110/77 100 03/21/24 19:30 71 16 109/70 99 03/21/24 19:15 98 F 78 16 111/72 99 03/21/24 19:00 78 16 101/59 03/21/24 18:45 92 H 16 102/58 03/21/24 18:30 83 16 103/57 03/21/24 18:20 18 03/21/24 18:15 81 18 106/62 03/21/24 18:00 18 106/64 03/21/24 17:45 96 H 18 106/62 03/21/24 17:30 18 03/21/24 17:24 98 F 90 18 110/76 03/21/24 17:00 18 03/21/24 16:30 18 03/21/24 16:00 18 General Appearance: no apparent distress Neurologic Exam: alert Respiratory Exam: normal breath sounds Cardiovascular Exam: regular rate/rhythm Pelvic Exam: other (/-) Results - Labs Lab/Micro Results: Lab Results-Last 24 Hours 03/21/24 03/21/24 03/21/24 Range/Units 16:20 16:34 16:34 WBC 7.3 (3.98-10.04) x10^3/uL RBC 4.56 (3.93-5.22) x10^6/uL Hgb 12.4 (11.2-15.7) g/dL Hct 37.9 (34.1-44.9) % MCV 83.1 (79.4-94.8) fL MCH 27.2 (25.6-32.2) pg MCHC 32.7 (32.2-35.5) g/dL RDW 13.2 (11.7-14.4) % Plt Count 205 (182-369) x10^3/uL MPV 9.3 L (9.4-12.3) fL Gran % 75.9 H (34.0-71.1) % Immature Gran % (Auto) 1.5 H (0.001-0.429) % Nucleat RBC Rel Count 0.0 (0.00-0.2) % Eos # (Auto) 0.03 L (0.04-0.36) x10^3/uL Immature Gran # (Auto) 0.11 H (0.001-0.031) x10^3u/L Absolute Lymphs (auto) 1.00 L (1.18-3.74) x10^3/uL Absolute Monos (auto) 0.59 (0.24-0.86) x10^3/uL Absolute Nucleated RBC 0.00 (0.00-0.012) x10^3u/L Lymphocytes % 13.8 L (19.3-51.7) % Monocytes % 8.1 (4.7-12.5) % Eosinophils % 0.4 L (0.7-5.8) % Basophils % 0.3 (0.1-1.2) % Absolute Granulocytes 5.52 (1.56-6.13) x10^3/uL Basophils # 0.02 (0.01-0.08) x10^3/uL Urine Opiates Level NEGATIVE (NEGATIVE) Ur Methadone NEGATIVE (NEGATIVE) Urine Barbiturates NEGATIVE (NEGATIVE) Ur Phencyclidine (PCP) NEGATIVE (NEGATIVE) Urine Amphetamine NEGATIVE (NEGATIVE) U Benzodiazepine Level NEGATIVE (NEGATIVE) Urine Cocaine NEGATIVE (NEGATIVE) Urine Marijuana (THC) POSITIVE A (NEGATIVE) ABO Group O Rh Factor POSITIVE Antibody Screen NEGATIVE (NEGATIVE) 03/22/24 Range/Units 04:55 WBC 6.2 (3.98-10.04) x10^3/uL RBC 4.29 (3.93-5.22) x10^6/uL Hgb 11.7 (11.2-15.7) g/dL Hct 35.8 (34.1-44.9) % MCV 83.4 (79.4-94.8) fL MCH 27.3 (25.6-32.2) pg MCHC 32.7 (32.2-35.5) g/dL RDW 13.1 (11.7-14.4) % Plt Count 167 L (182-369) x10^3/uL MPV 9.3 L (9.4-12.3) fL Gran % 69.3 (34.0-71.1) % Immature Gran % (Auto) 1.0 H (0.001-0.429) % Nucleat RBC Rel Count 0.0 (0.00-0.2) % Eos # (Auto) 0.02 L (0.04-0.36) x10^3/uL Immature Gran # (Auto) 0.06 H (0.001-0.031) x10^3u/L Absolute Lymphs (auto) 1.33 (1.18-3.74) x10^3/uL Absolute Monos (auto) 0.47 (0.24-0.86) x10^3/uL Absolute Nucleated RBC 0.00 (0.00-0.012) x10^3u/L Lymphocytes % 21.5 (19.3-51.7) % Monocytes % 7.6 (4.7-12.5) % Eosinophils % 0.3 L (0.7-5.8) % Basophils % 0.3 (0.1-1.2) % Absolute Granulocytes 4.30 (1.56-6.13) x10^3/uL Basophils # 0.02 (0.01-0.08) x10^3/uL Urine Opiates Level (NEGATIVE) Ur Methadone (NEGATIVE) Urine Barbiturates (NEGATIVE) Ur Phencyclidine (PCP) (NEGATIVE) Urine Amphetamine (NEGATIVE) U Benzodiazepine Level (NEGATIVE) Urine Cocaine (NEGATIVE) Urine Marijuana (THC) (NEGATIVE) ABO Group Rh Factor Antibody Screen (NEGATIVE) Assessment/Plan (1) delivery Current Visit: Yes Status: Acute Code(s): O60.10X0 - LABOR W DELIVERY, UNSP TRIMESTER, UNSP (2) labor in third trimester Current Visit: Yes Status: Acute Code(s): O60.03 - LABOR WITHOUT DELIVERY, THIRD TRIMESTER
--- NOTE | 2024-03-22 08:03 | PCM.DS ---
Discharge Summary Date of Admission: 03/21/24 15:47 Admitting Physician: MDITRY COSTA DO Consults: Consults on Case 03/21/24 16:26 Notify Anesthesia Provider PRN Primary Care Provider: MAKAYLA ALVA Allergies Allergies No Known Drug Allergies Allergy (Verified 02/14/24 01:24) STATES WAS ALLERGIC TO THREE DIFFERENT TYPES OF HEADACHE MEDICATIONS BUT DOESN'T KNOW WHAT THEY WERE, SAID IT WAS A LONG TIME AGO. Hospital Summary - Hospital Course Hospital Course: pt is a 28 yo who presented in labor at 36 4/7 wks gestation and subsequently delivered live baby boy without complication with no perineal tear on mar 21. during visit did very well able to ambulate and tolerate diet. vss afebrile. pt had stable hgb at 11.7. pt denied complaints and at this time stable for discharge on mar 23. all questions answered to her satisfaction and was advised to fu in office in 3 wks for care. - Vitals & Intake/Output Vital Signs: Vital Signs Temperature 97.9 F 03/22/24 01:37 Pulse Rate 71 03/22/24 01:37 Respiratory Rate 20 03/22/24 01:37 Blood Pressure 96/58 03/22/24 01:37 O2 Sat by Pulse Oximetry 96 03/22/24 01:37 Intake & Output: Intake & Output 03/19/24 03/20/24 03/21/24 03/22/24 11:59 11:59 11:59 11:59 Intake Total 500 Balance 500 Weight 88.904 kg - Lab Result Diagrams: 03/22/24 04:55 Lab Results-Last 24 Hrs: Lab Results-Last 24 Hours 03/21/24 03/21/24 03/21/24 Range/Units 16:20 16:34 16:34 WBC 7.3 (3.98-10.04) x10^3/uL RBC 4.56 (3.93-5.22) x10^6/uL Hgb 12.4 (11.2-15.7) g/dL Hct 37.9 (34.1-44.9) % MCV 83.1 (79.4-94.8) fL MCH 27.2 (25.6-32.2) pg MCHC 32.7 (32.2-35.5) g/dL RDW 13.2 (11.7-14.4) % Plt Count 205 (182-369) x10^3/uL MPV 9.3 L (9.4-12.3) fL Gran % 75.9 H (34.0-71.1) % Immature Gran % (Auto) 1.5 H (0.001-0.429) % Nucleat RBC Rel Count 0.0 (0.00-0.2) % Eos # (Auto) 0.03 L (0.04-0.36) x10^3/uL Immature Gran # (Auto) 0.11 H (0.001-0.031) x10^3u/L Absolute Lymphs (auto) 1.00 L (1.18-3.74) x10^3/uL Absolute Monos (auto) 0.59 (0.24-0.86) x10^3/uL Absolute Nucleated RBC 0.00 (0.00-0.012) x10^3u/L Lymphocytes % 13.8 L (19.3-51.7) % Monocytes % 8.1 (4.7-12.5) % Eosinophils % 0.4 L (0.7-5.8) % Basophils % 0.3 (0.1-1.2) % Absolute Granulocytes 5.52 (1.56-6.13) x10^3/uL Basophils # 0.02 (0.01-0.08) x10^3/uL Urine Opiates Level NEGATIVE (NEGATIVE) Ur Methadone NEGATIVE (NEGATIVE) Urine Barbiturates NEGATIVE (NEGATIVE) Ur Phencyclidine (PCP) NEGATIVE (NEGATIVE) Urine Amphetamine NEGATIVE (NEGATIVE) U Benzodiazepine Level NEGATIVE (NEGATIVE) Urine Cocaine NEGATIVE (NEGATIVE) Urine Marijuana (THC) POSITIVE A (NEGATIVE) ABO Group O Rh Factor POSITIVE Antibody Screen NEGATIVE (NEGATIVE) 03/22/24 Range/Units 04:55 WBC 6.2 (3.98-10.04) x10^3/uL RBC 4.29 (3.93-5.22) x10^6/uL Hgb 11.7 (11.2-15.7) g/dL Hct 35.8 (34.1-44.9) % MCV 83.4 (79.4-94.8) fL MCH 27.3 (25.6-32.2) pg MCHC 32.7 (32.2-35.5) g/dL RDW 13.1 (11.7-14.4) % Plt Count 167 L (182-369) x10^3/uL MPV 9.3 L (9.4-12.3) fL Gran % 69.3 (34.0-71.1) % Immature Gran % (Auto) 1.0 H (0.001-0.429) % Nucleat RBC Rel Count 0.0 (0.00-0.2) % Eos # (Auto) 0.02 L (0.04-0.36) x10^3/uL Immature Gran # (Auto) 0.06 H (0.001-0.031) x10^3u/L Absolute Lymphs (auto) 1.33 (1.18-3.74) x10^3/uL Absolute Monos (auto) 0.47 (0.24-0.86) x10^3/uL Absolute Nucleated RBC 0.00 (0.00-0.012) x10^3u/L Lymphocytes % 21.5 (19.3-51.7) % Monocytes % 7.6 (4.7-12.5) % Eosinophils % 0.3 L (0.7-5.8) % Basophils % 0.3 (0.1-1.2) % Absolute Granulocytes 4.30 (1.56-6.13) x10^3/uL Basophils # 0.02 (0.01-0.08) x10^3/uL Urine Opiates Level (NEGATIVE) Ur Methadone (NEGATIVE) Urine Barbiturates (NEGATIVE) Ur Phencyclidine (PCP) (NEGATIVE) Urine Amphetamine (NEGATIVE) U Benzodiazepine Level (NEGATIVE) Urine Cocaine (NEGATIVE) Urine Marijuana (THC) (NEGATIVE) ABO Group Rh Factor Antibody Screen (NEGATIVE) - Procedures and Test Procedures and Tests throughout Hospitalization: Therapy Orders & Screens 03/21/24 18:36 Standby ROUTINE Comment: Diagnosis: Labor Final Diagnosis/Problem List - Final Discharge Diagnosis/Problem (1) delivery Current Visit: Yes Status: Acute Code(s): O60.10X0 - LABOR W DELIVERY, UNSP TRIMESTER, UNSP (2) labor in third trimester Current Visit: Yes Status: Acute Code(s): O60.03 - LABOR WITHOUT DELIVERY, THIRD TRIMESTER - Discharge Disposition: Home, Self-Care Condition: Stable Prescriptions: No Action Pnv No.103/Folic/Om3s/Fish Oil [ Gummies] 1 tab PO HS Sertraline HCl 50 mg [Zoloft 50 mg Tablet] 50 mg PO HS Follow up with: MAKAYLA ALVA MD [Primary Care Provider] - DMITRY COSTA DO [ACTIVE STAFF] - 3 weeks (should call me for any issues that may arise upon discharge should fu in office in 3 wks)
[2024-03-22] MEDS: FERREX 150 PO SCH (09:25)
[2024-03-23 02:23] VITALS: BP 112/71
[2024-03-23 12:52] LABS: RPR Non Reactive (Non Reactive)
[2024-03-23 16:11] VITALS: PULSE 65; RESP 15; TEMP 98.1; O2SAT 98
== END 2024-03-23 13:40 | disposition home or self-care (01) | DRG 807 ==
LOC: OB 15:47 → OBSVTOIN 15:47 → UNDOADMOB 15:47
PROVIDERS: ADMIT Obstetrics & Gynecology; ATTEND Obstetrics & Gynecology
PROC: 10E0XZZ Delivery of Products of Conception, External Approach (ICD-10-PCS; principal; 2024-03-21)
DX: O60.14X0 Preterm labor third trimester with preterm delivery third trimester, not applicable or unspecified (principal); Z37.0 Single live birth; Z3A.36 36 weeks gestation of pregnancy
CPT/HCPCS: 36415; 59025; 59409; 59426; 80307; 81002; 85025; 86592; 86850; 86900; 86901; 94799; 99213; J2590; A9270-GY